=== PATIENT | female | born 1945 | race Caucasian/White ===

== ENCOUNTER 2016-06-03 19:00 | Emergency (ER) | payer MEDICARE, BC ==
[2016-06-03] MEDS ORDERED: Levalbuterol 1.25MG/0.5ML NEB INH ONE (20:36)
--- NOTE | 2016-06-03 20:36 | UC ---
FLU HPI - HPI Summary HPI Summary: 3 days of fevers at night harsh cough - History of Current Complaint Chief Complaint: UC Stated Complaint: FLU LIKE SYMPTOMS Time Seen by Provider: 06/03/16 20:10 Hx Obtained From: Patient ?: No Onset/Duration: Sudden Onset, Lasting Days - 3, Still Present Severity Currently: Moderate Severity Initially: Moderate Pain Intensity: 6 Pain Scale Used: 0-10 Numeric - 6 Associated Signs & Symptoms: Positive: Fever, Myalgia, Cough Related Hx: Smoking - Allergy/Home Medications Allergies/Adverse Reactions: Allergies Allergy/AdvReac Type Severity Reaction Status Date / Time Atorvastatin [From Lipitor] Allergy Muscle Ache Verified 06/03/16 20:04 CI Pigment Blue 63 AdvReac Mild Blisters Verified 06/03/16 20:04 [From Cymbalta] Duloxetine [From Cymbalta] AdvReac Mild Blisters Verified 06/03/16 20:04 STATINS Allergy Severe Muscle Ache Uncoded 06/03/16 20:04 Home Medications: Home Medications Aspirin [Hurt Aspirin] 2 PRN MDD unknown 06/03/16 [History] Pregabalin CAP(*) [Lyrica CAP(*)] 1 DAILY 06/03/16 [History] PMH/Surg Hx/FS Hx/Imm Hx Previously Healthy: No Endocrine History Of: Denies: Diabetes, Thyroid Disease Cardiovascular History Of: Reports: Cardiac Disorders, Hypertension, Atrial Fibrillation Denies: Pacemaker/ICD, Congestive Heart Failure Respiratory History Of: Denies: COPD, Asthma, Bronchitis GI/ History Of: Reports: Gall Bladder Disease - GALLBLADDER REMOVED 2014 Denies: Ulcer - 20 YEARS AGO, Renal Disease Psychological History Of: Reports: Anxiety, Depression - Surgical History Surgical History: Yes Surgery Procedure, Year, and Place: PARATHYROIDECTOMY; HYSTERECTOMY; LEFT ROTOR CUFF REPAIR; LOOP RECORDER PLACED,. GALL BLADDER REMOVED - Family History Known Family History: Positive: None Family History: no reported cardiovascular issues in family lineage - Social History Occupation: Retired Lives: With Family Alcohol Use: Occasionally Alcohol Amount: 2-3 GLASSES WINE/DAY Substance Use Type: None Smoking Status (MU): Smoker, Current Status Unknown Type: Cigarettes Amount Used/How Often: 1 PACK/WEEK CURRENT. HX 1 PPD X 15 YRS Length of Time of Smoking/Using Tobacco: 25 YRS Have You Smoked in the Last Year: Yes When Did the Patient Quit Smoking/Using Tobacco: 2009 Household Exposure Type: Cigarettes Cessation Counseling: Patient Advised to Stop - Immunization History Most Recent Influenza Vaccination: 2011 Most Recent Tetanus Shot: UP TO DATE Most Recent Pneumonia Vaccination: 2009 Review of Systems Constitutional: Fever, Chills, Fatigue Skin: Negative Eyes: Negative ENT: Sore Throat Respiratory: Shortness Of Breath, Cough Cardiovascular: Negative Gastrointestinal: Negative Genitourinary: Negative Motor: Negative Neurovascular: Negative Musculoskeletal: Arthralgia, Myalgia Neurological: Negative Psychological: Negative All Other Systems Reviewed And Are Negative: Yes Physical Exam Triage Information Reviewed: Yes Appearance: Well-Nourished, Ill-Appearing, Pain Distress Vital Signs: Initial Vital Signs Temp 99.4 F 06/03/16 19:56 Pulse 84 06/03/16 19:56 Resp 20 06/03/16 19:56 BP 124/79 06/03/16 19:56 Pulse Ox 98 06/03/16 19:56 Vital Signs Reviewed: Yes Eye Exam: Normal Eyes: Positive: Conjunctiva Clear ENT Exam: Normal ENT: Positive: Normal ENT inspection, Hearing grossly normal, Pharynx normal, TMs normal. Negative: Nasal congestion, Nasal drainage, Tonsillar swelling, Tonsillar exudate, Trismus, Muffled/hoarse voice Dental Exam: Normal Neck exam: Normal Neck: Positive: Supple, Nontender, No Lymphadenopathy Respiratory Exam: Other Respiratory: Positive: Chest non-tender, No accessory muscle use, Respiratory distress, Rhonchi, Wheezing Cardiovascular Exam: Normal Cardiovascular: Positive: RRR, No Murmur, Pulses Normal, Brisk Capillary Refill Abdominal Exam: Normal Abdomen Description: Positive: Nontender, No Organomegaly, Soft Bowel Sounds: Positive: Present Musculoskeletal Exam: Normal Musculoskeletal: Positive: Strength Intact, ROM Intact, No Edema Neurological Exam: Normal Neurological: Positive: Alert, Muscle Tone Normal Psychological Exam: Normal Skin Exam: Normal Diagnostics - Laboratory Diagnostic Studies Completed/Ordered: influenza A/B (-) - Radiology No standard instances Xray Interpretation: No Acute Changes Radiology Interpretation Completed By: Radiologist Re-Evaluation - Re-Evaluation First Eval Change: Worse - increase aeration but now begining with shaking chills temp up to 100.1 Flu Course/Dx - Course Course Of Treatment: transfer to [facility] ED for further evaluation - Differential Dx/Diagnosis Differential Diagnosis/HQI/PQRI: Influenza, Pneumonia, Upper Respiratory Infection Provider Diagnoses: Febrile illness - Physician Notifications Discussed Patient Care With: Dr. Harris Time Discussed With Above Provider: 21:40 Instructed by Provider To: Transfer Discharge - Discharge Plan Condition: Fair Disposition: AGAINST MEDICAL ADVICE
[2016-06-03] MEDS ORDERED: Albuterol/Ipratropium NEB.SOL* Albuterol 2.5 MG/Ipratropium 0.5 MG 3 ML INH ONE (20:43)
--- NOTE | 2016-06-03 21:04 | RAD ---
INDICATION: Cough. Fever. Congestion. COMPARISON: February 05, 2016 TECHNIQUE: PA and lateral dual-energy views were obtained. FINDINGS: Bones/Soft Tissues: There are no acute bony findings. Cardiomediastinal: The cardiomediastinal silhouette is normal. Lungs: There are no infiltrates. Pleura: There are no pleural effusions. Other: None IMPRESSION: NO ACTIVE DISEASE.
[2016-06-03] MEDS ORDERED: Azithromycin TAB* 250 MG PO ONE (21:12)
[2016-06-03 21:32] VITALS: BP 147/85
== END 2016-06-03 21:43 | disposition left against medical advice (07) ==
LOC: UCEAST 19:00
DX: R50.9 Fever, unspecified (principal); R05 Cough; Z90.49 Acquired absence of other specified parts of digestive tract; Z88.8 Allergy status to other drugs, medicaments and biological substances; F17.210 Nicotine dependence, cigarettes, uncomplicated
CPT/HCPCS: 71020; 87502; 99212; A9270-GY; G0463

== ENCOUNTER 2016-06-03 21:47 | Emergency (ER) | payer MEDICARE, BC ==
[2016-06-03 21:52] VITALS: BP 174/93
[2016-06-03] MEDS ORDERED: Ibuprofen TAB* 600 MG PO ONE (22:35)
--- NOTE | 2016-06-03 22:41 | ED ---
Dariusz Peña Adam, scribed for Francesco Germain MD on 06/03/16 at 2235 . HPI Febrile Illness - HPI Summary HPI Summary: Pt is a 70 year old female sent from urgent care with fever, cough, and congestion. At she was found to be negative for influenza A and B and her CXR was negative as well, so she was sent to the ED for further work-up. She has been having URI symptoms with a worsening cough for the past week. For the past 2 nights her temperature has been between 100 and 102 F. She currently c/o generalized myalgia, REED, and pain behind her eyes. She has taken Mucinex and ASA. She has also been on hydrocodone/Tylenol since a recent knee surgery. - History of Current Complaint Chief Complaint: EDFluSymptoms Time Seen by Provider: 06/03/16 22:25 Hx Obtained From: Patient Onset/Duration: Started Days Ago, Atraumatic, Still Present Timing: Constant, Lasting Days Initial Severity: Moderate Current Severity: Moderate Pain Intensity: 4 Pain Scale Used: 0-10 Numeric Aggravating Factors: Nothing Alleviating Factors: OTC Medicine - ASA, Mucinex Associated Signs and Symptoms: Cough, Headache, Myalgia, Other: - Congestion - Additional Pertinent History Primary Care Physician: [id number] - Allergy/Home Medications Allergies/Adverse Reactions: Allergies Allergy/AdvReac Type Severity Reaction Status Date / Time Atorvastatin [From Lipitor] Allergy Muscle Ache Verified 06/03/16 20:04 CI Pigment Blue 63 AdvReac Mild Blisters Verified 06/03/16 20:04 [From Cymbalta] Duloxetine [From Cymbalta] AdvReac Mild Blisters Verified 06/03/16 20:04 STATINS Allergy Severe Muscle Ache Uncoded 06/03/16 20:04 PMH/Surg Hx/FS Hx/Imm Hx Endocrine/Hematology History: Denies: Hx Diabetes, Hx Systemic Lupus Erythematosus, Hx Thyroid Disease Cardiovascular History: Reports: Hx Hypercholesterolemia, Hx Hypertension, Hx Valvular Heart Disease - MITRAL VALVE PROLAPSE, PULMONARY VALVE PROBLEM, Other Cardiovascular Problems/Disorders - CARDIAC ABLATION, LOOP CHIP IMPLANTED TO MONITOR HEART RATE Denies: Hx Congestive Heart Failure, Hx Pacemaker/ICD Respiratory History: Reports: Other Respiratory Problems/Disorders - CURRENT SMOKER/TOBACCO Denies: Hx Asthma, Hx Chronic Obstructive Pulmonary Disease (COPD) GI History: Reports: Hx Gall Bladder Disease - GALLBLADDER REMOVED 2014, Hx Irritable Bowel, Other GI Disorders - chronic constipation Denies: Hx Ulcer - 20 YEARS AGO History: Reports: Other Problems/Disorders - BLADDER CANCER, incontinence Denies: Hx Dialysis, Hx Renal Disease Musculoskeletal History: Reports: Hx Arthritis, Hx Back Problems, Hx Orthopedic Injury - LEft rotator cuff, Other Musculoskeletal History - LEFT ROTATOR CUFF REPAIR, RIGHT TOTAL KNEE REPLACEMENT 02/11 Denies: Hx Rheumatoid Arthritis, Hx Osteoporosis Sensory History: Reports: Hx Contacts or Glasses Denies: Hx Hearing Aid Opthamlomology History: Reports: Hx Contacts or Glasses Neurological History: Denies: Other Neuro Impairments/Disorders Psychiatric History: Reports: Hx Anxiety, Hx Depression Denies: Hx Panic Disorder - Cancer History Cancer Type, Location and Year: Bladder Cancer 1998 Hx Chemotherapy: No Hx Radiation Therapy: No Hx Palliative Cancer Treatment: No - Surgical History Surgery Procedure, Year, and Place: PARATHYROIDECTOMY; HYSTERECTOMY; LEFT ROTOR CUFF REPAIR; LOOP RECORDER PLACED,. GALL BLADDER REMOVED Hx Anesthesia Reactions: No Infectious Disease History: No Infectious Disease History: Denies: Hx Hepatitis, Hx Human Immunodeficiency Virus (HIV), Traveled Outside the [place] in Last 30 Days - Family History Known Family History: Negative: Cardiac Disease Family History: No reported cardiovascular issues in family lineage - Social History Occupation: Retired Lives: With Family - Alcohol Use: Daily Alcohol Amount: 2-3 GLASSES WINE/DAY Hx Substance Use: No Substance Use Type: Reports: None Hx Tobacco Use: Yes Type: Cigarettes Amount Used/How Often: 1 PACK/WEEK CURRENT. HX 1 PPD X 15 YRS Length of Time of Smoking/Using Tobacco: 25 YRS Have You Smoked in the Last Year: Yes Review of Systems Positive: Fever Positive: Sore Throat, Other - Congestion Positive: Myalgia All Other Systems Reviewed And Are Negative: Yes Physical Exam Triage Information Reviewed: Yes Vital Signs On Initial Exam: Initial Vitals Temp Pulse Resp BP Pulse Ox 100.6 F 101 16 174/93 96 06/03/16 21:48 06/03/16 21:48 06/03/16 21:48 06/03/16 21:48 06/03/16 21:48 Vital Signs Reviewed: Yes Appearance: Positive: Well-Appearing, No Pain Distress Skin: Positive: Warm Head/Face: Positive: Normal Head/Face Inspection Eyes: Positive: HEATHER ENT: Positive: Hearing grossly normal Neck: Positive: Supple Respiratory/Lung Sounds: Positive: Clear to Auscultation, Breath Sounds Present Cardiovascular: Positive: RRR Abdomen Description: Positive: Nontender, Soft Bowel Sounds: Positive: Present Musculoskeletal: Positive: Strength/ROM Intact Neurological: Positive: Sensory/Motor Intact, Alert, Oriented to Person Place, Time Psychiatric: Positive: Affect/Mood Appropriate Diagnostics - Vital Signs Vital Signs Temp Pulse Resp BP Pulse Ox 06/03/16 21:48 100.6 F 101 16 174/93 96 - Laboratory Result Diagrams: 06/03/16 22:50 06/03/16 22:50 Lab Statement: Any lab studies that have been ordered have been reviewed, and results considered in the medical decision making process. Course/Dx - Diagnoses Provider Diagnoses: Febrile illness Discharge - Discharge Plan Condition: Stable Disposition: HOME Patient Education Materials: Fever in Adults (ED) Referrals: Conner Belle MD [Primary Care Provider] - Additional Instructions: Follow up with Dr. Belle. The documentation as recorded by the Dariusz maldonado Adam accurately reflects the service I personally performed and the decisions made by Jessa hook David, MD.
[2016-06-03 23:02] LABS: Hematocrit 37 % (35-47); Hemoglobin 11.9 g/dl (12.0-16.0); Mean Corpuscular HGB Conc 33 g/dl (31-36); Mean Corpuscular Hemoglobin 31 pg (27-31); Mean Corpuscular Volume 94 fL (80-97); Mean Platelet Volume 9 um3 (7.4-10.4); Red Blood Count 3.88 10^6/ul (4.0-5.4); Red Cell Distribution Width 14 % (10.5-15); White Blood Count 14.2 10^3/ul (3.5-10.8)
[2016-06-03 23:17] LABS: BUN/Creatinine Ratio 15.8 (8-20); EGFR African American 135.2 (>60); EGFR Non-African American 105.2 (>60); Potassium 3.6 mmol/L (3.5-5.0)
== END 2016-06-03 23:48 | disposition home or self-care (01) ==
LOC: ED 21:47
DX: R50.9 Fever, unspecified (principal); J02.9 Acute pharyngitis, unspecified; M79.1 Myalgia; Z90.49 Acquired absence of other specified parts of digestive tract; Z88.8 Allergy status to other drugs, medicaments and biological substances; F17.210 Nicotine dependence, cigarettes, uncomplicated
CPT/HCPCS: 36415; 71020; 80048; 85025; 87502; 99212; 99282; A9270-GY; G0463

== ENCOUNTER 2018-03-25 10:40 | Observation (INO) | payer MEDICARE, BC ==
[~2018-03-25 10:40] MED LIST: Buffered Lidocaine 0.9% SYRIN* 5 ML/SYR SYRINGE INTRADERM ONE; Lactated Ringers 1000 ML Bag* 1,000 ML IV SCH
[2018-03-25] MEDS ORDERED: oxyCODONE TAB* 5 MG TAB PO ONE (12:08)
[2018-03-25] MEDS ORDERED: oxyCODONE TAB* 5 MG TAB ONE (12:14)
[2018-03-25] MEDS ORDERED: Midazolam* 1 MG/ML 2 ML VIAL (2 MG) ONE (12:40)
[2018-03-25] MEDS ORDERED: fentaNYL* 50 MCG/ML 2 ML VIAL (100 MCG VIAL) ONE (12:40)
[2018-03-25] MEDS ORDERED: Rocuronium* 10 MG/ML VIAL ONE (12:40)
[2018-03-25] MEDS ORDERED: Lidocaine 2% PF * 5 ML VIAL ONE (13:14)
[2018-03-25] MEDS ORDERED: Ondansetron INJ* 2 MG/ML VIAL ONE (13:31)
[2018-03-25] MEDS ORDERED: Metoclopramide IV* 5 MG/ML 2 ML VIAL ONE (13:31)
[2018-03-25] MEDS ORDERED: Dexamethasone IV* 4 MG/ML 1 ML (4 MG) ONE (13:31)
[2018-03-25] MEDS ORDERED: Ketorolac INJ* 30 MG/ML 1 ML VIAL ONE (13:31)
[2018-03-25] MEDS ORDERED: Naloxone* 0.4 MG/ML 1 ML VIAL IV PRN (13:49)
[2018-03-25] MEDS ORDERED: Acetaminophen TAB* 325 MG PO PRN ×2 (13:49→15:58)
[2018-03-25] MEDS ORDERED: fentaNYL* 50 MCG/ML 2 ML VIAL (100 MCG VIAL) IV PRN (13:49)
[2018-03-25] MEDS ORDERED: DiMENhydriNATE IV* 50 MG/ML VIAL IV PUSH PRN (13:49)
[2018-03-25] MEDS ORDERED: Phenylephrine INJ* 10 MG/ML 1 ML VIAL (10 MG) ONE (13:50)
[2018-03-25] MEDS ORDERED: hydrALAZINE IV* 20 MG/ML VIAL ONE (14:38)
[2018-03-25] MEDS ORDERED: Indomethacin SUPP(NF) 50 MG SUP PR ONE (15:00)
[2018-03-25] MEDS ORDERED: OXYCODONE HCL 15 MG PO PRN (15:57)
[2018-03-25] MEDS ORDERED: ALPRAZOLAM 1 MG PO PRN (15:57)
[2018-03-25] MEDS: oxyCODONE TAB* 5 MG TAB PO SCH ×2 (17:39→20:58)
[2018-03-25] MEDS ORDERED: Sertraline* 100 MG TAB PO SCH (21:00)
[2018-03-25] MEDS ORDERED: ALPRAZolam TAB* 0.5 MG PO SCH (21:00)
--- NOTE | 2018-03-25 21:03 | HP ---
CC: Dr. Santamaria* [facility] MEDICINE HISTORY AND PHYSICAL: DATE OF ADMISSION: 03/25/18 PRIMARY CARE PROVIDER: Dr. Santamaria. ATTENDING PHYSICIAN: Dr. Zana Cade* (dictation provided by Samanta Mccormack NP). CHIEF COMPLAINT: Status post ERCP. HISTORY OF PRESENT ILLNESS: Ms. Morgan is a 72-year-old female with a past medical history of hypertension, hyperlipidemia, recent upper endoscopy with findings of gastritis and astric ulcer, on omeprazole, and recent outpatient MRCP with finding of choledocholithiasis and cholecystectomy, who presents to the hospital today after an ERCP. Ms. Morgan had a cholecystectomy in 2014. She has continued to follow along with Dr. Paniagua. She had reported that she was having some heartburn- type symptoms in and around December of 2017. On 12/28/17 , she had an upper endoscopy with Dr. Paniagua which showed gastritis and gastric ulcers, for which she was started on omeprazole. The patient also had MRCP at that time which did show stones in the common bile duct. The patient was asymptomatic from these stones. Dr. Paniagua discussed the risk of leaving the stones there versus removing with ERCP and plans were made for her to proceed with ERCP today. The patient was reported to have tolerated that procedure well. She denies any acute complaint prior to her admission. PAST MEDICAL HISTORY AND PAST SURGICAL HISTORY: 1. Hypertension. 2. Hyperlipidemia. 3. Atrial fibrillation, status post ablation, not on anticoagulation. 4. Bladder cancer. 5. Cholecystectomy in 2014. 6. Right knee arthroplasty in 2016. ALLERGIES: 1. ATORVASTATIN. 2. DULOXETINE. 3. MORPHINE. FAMILY HISTORY: Reviewed and noncontributory. SOCIAL HISTORY: No report of alcohol, tobacco, or drug use. The patient lives with her , who will be the healthcare proxy. REVIEW OF SYSTEMS: A 14-point review of systems was completed with Ms. Morgan and all those mentioned above were negative. PHYSICAL EXAMINATION GENERAL: Ms. Morgan is sitting up in the bed. She is in no acute distress. VITAL SIGNS: Temperature 98.4, pulse rate 89, respiratory rate 17; O2 saturation 93% on room air; blood pressure 146/91. NEURO: She is alert. She is oriented x3. She moves all extremities equally. There is no facial asymmetry or focal weakness. Extraocular movements are intact. LUNGS: Clear to auscultation bilaterally with no accessory muscle use, and good aeration. HEART: S1, S2. No murmur, rub, or gallop and regular. ABDOMEN: Soft, nontender with bowel sounds positive x4. EXTREMITIES: No cyanosis or edema. SKIN: Intact. DIAGNOSTIC STUDIES AND LABORATORY DATA: Preoperatively, on 02/24/18, sodium 140, potassium 4.6, chloride 102, serum bicarbonate 31, BUN 16, creatinine 0.70 , glucose 87. Her AST was 14, ALT 15, alk phos 78. WBC 13.1, hemoglobin 14.6, hematocrit 44, platelet count 245. ASSESSMENT: Ms. Morgan is a 72-year-old female with a past medical history of cholecystectomy and a recent finding of common bile duct stones via MRCP outpatient with Dr. Paniagua, who presented today to the hospital for ERCP. The patient tolerated the procedure well, but needs observation in the hospital overnight for her multiple comorbidities and pain control. Her plans will be for the followin. Status post ERCP. The patient's pain is well controlled at this time. I have ordered LFTs in the a.m. We will observe closely through the night. 2. Chronic pain. Continue oxycodone. 3. Anxiety. Continue alprazolam. 4. Depression. Continue bupropion and sertraline. 5. Recent finding of gastritis. Continue omeprazole. 6. Hypertension. The patient's blood pressure is running about 110 systolically. I have losartan on hold for the a.m. until she can be reevaluated and will likely resume. 7. Disposition. Discharge to Day Surgical. 8. DVT prophylaxis with SCDs. 9. Code status is full code. TIME SPENT: Approximately 60 minutes were spent on the admission of this patient, more than half of the time was spent with the patient at the bedside reviewing the events leading up to this hospitalization, performing the physical examination, and reviewing my plan of care. SAMANTA MCCORMACK NP [id number]/DIANE #: [id number] MTDD
--- NOTE | 2018-03-26 01:48 | PRO ---
DATE: 03/25/18 REFERRING PHYSICIAN: Edilberto Flood PROCEDURE: ERCP with sphincterotomy and balloon extraction, 7 common bile duct stones, 7 to 8 mm each. INDICATION: This 72-year-old woman was found to have common bile duct stones on a MRCP of the abdomen September 2016 (ordered by Tia Mclean) that was working up abdominal pain and fluctuating low grade alk phos elevations and it was concluded that the pain likely came from a different source. Stones have been observed and documented on second MRCP Jan 2018. Given her overall good health , it was elected to remove them electively. Her GB was removed 02/27/15 with at least 3 abd US studies not showing CBD stones though the CBD was expanding over time to 13mm. A Mar [address] Pascual did see CBD stones. Her liver function tests have shown normal bili and mild ALT and alk phos fluctuations not clearly correlating with pain . Informed consent was obtained during a sequence of office appointments and a full discussion was held at least twice. ENDOSCOPIST: Dr. Paniagua MEDICATIONS: Anesthesia per Dr. Dickerson. FINDINGS: She is a slender, generally healthy-appearing older woman, in no distress. Her blood pressure was elevated initially with diastolics in the 100 to 105 range. She had taken her blood pressure medicines in the morning, but not her OxyContin. She does attend the pain clinic regularly. Dr. Dickerson evaluated her and gave some doses of pain medication. Her blood pressure came down and the procedure took place. She was positioned in the usual tilted left side down orientation, padded extensively. ERCP: Larynx - small configuration and advancement of the mandible was helpful in getting into the esophagus. Esophagus - 20% views were normal. Stomach - 40% views were normal. Duodenum - normal contours and mucosa. The minor papilla was fairly prominent and was easily seen going by. Major papilla - of generous size with a small amount of bile draining spontaneously during initial views. The scope was positioned directly opposite the papilla. A sphincterotome slightly bent was then used to approach the papilla. A cannulating wire was brought right down to the end. The sphincterotome was inserted for about 2 or 3 mm, then seemed to glide in a favorable orientation. At that point, the cannulating wire went up directly into the liver readily. It did not appear to enter a cystic duct. The wire was brought down and locked and then injection did show some filling defects in the common duct. They were not particularly distinctly shown, but seemed evident. They were mostly distally. Sphincterotomy was done in a 12 o'clock orientation, estimated 12 to 13 mm. Bile was spilling generously. A large 12 to 15 mm balloon was inserted and 7 stones were brought through with the balloon mostly at a 12, sometimes 13.5 inflation dimension. They came through with twisting manipulation of the balloon catheter. They came through one by one. There was no bleeding. There was no purulence seen. A final balloon occlusion cholangiogram was done extracting the duct in a straightened orientation. Views appeared precise and no stones were seen. The catheter was removed. Dye drained readily within a minute. Procedure was terminated. IMPRESSION: 1. Status post endoscopic sphincterotomy - with extensive manipulation required. Indocin suppository was given post procedure. 2. Removal of common bile duct stones - total of 7 with a little bit of grit. The duct appears drained. Followup of any distress with LFT correlation will direct choices - possible Ursodiol . [id number]/[facility] #: [id number] [facility] CENTERCharlie
[2018-03-26 06:11] LABS: Albumin 3.9 g/dL (3.2-5.2); Albumin/Globulin Ratio 1.8 (1-3); Globulin 2.2 g/dL (2-4); Indirect Bilirubin 0.4 mg/dL (0.3-1.0); Total Bilirubin 0.5 mg/dL (0.2-1.0); Total Protein 6.1 g/dL (6.4-8.9)
[2018-03-26 07:28] VITALS: BP 133/87
[2018-03-26] MEDS ORDERED: Omeprazole CAP* 20 MG PO SCH (07:30)
[2018-03-26] MEDS: oxyCODONE TAB* 5 MG TAB PO SCH (07:49)
[2018-03-26] MEDS ORDERED: BuPROPion XL* 300 MG TAB.XL PO SCH (09:00)
[2018-03-26] MEDS ORDERED: amLODIPine TAB* 5 MG PO SCH (09:00)
--- NOTE | 2018-03-27 06:01 | DS ---
Amended report to enter cosigning physician. CC: Dr. Santamaria; Dr. Paniagua* DISCHARGE SUMMARY: DATE OF ADMISSION: 03/25/18 DATE OF DISCHARGE: 03/26/18 PRIMARY CARE PROVIDER: Dr. Santamaria. ATTENDING PHYSICIAN: Dr. Mcmanus* (dictated by Zenon Denise NP). PRIMARY DIAGNOSIS: Status post ERCP. SECONDARY DIAGNOSES: 1. Hypertension. 2. Hyperlipidemia. 3. Atrial fibrillation, status post ablation, not on anticoagulation. 4. Bladder cancer. 5. Cholecystectomy in 2014. 6. Right knee arthroplasty in 2016. CONSULTATIONS WHILE IN THE HOSPITAL: Dr. Paniagua. PROCEDURES WHILE IN THE HOSPITAL: Status post endoscopic sphincterotomy. DISCHARGE HOME MEDICATIONS: [place] Medications: No new home medications Continued Home Medications: 1. Oxycodone 15 mg p.o. 4 times a day p.r.n. 2. Alprazolam 1 tab p.o. at bedtime p.r.n. 3. Zoloft 100 mg p.o. at bedtime. 4. Losartan 50 mg p.o. at bedtime. 5. Omeprazole 20 mg p.o. q.a.m. 6. Bupropion 1 tab p.o. q.a.m. 7. Norvasc 5 mg p.o. q.a.m. Changed or Discontinued Home Medications: None. HISTORY OF PRESENT ILLNESS/HOSPITAL COURSE: Ms. Morgan is a 72-year-old female with a past medical history of hypertension, hyperlipidemia, recent upper endoscopy with findings of gastritis and gastric ulcer, on omeprazole, and recent outpatient MRCP with findings of choledocholithiasis and cholecystectomy , who presented to the hospital after ERCP. Please see history and physical dictated by Samanta Mccormack for complete summary of events leading up to this hospitalization, but in short, the patient was admitted for ERCP, which the patient tolerated well. She was kept overnight on Short Stay Surgical for observation due to her multiple comorbidities and to control her pain. While on Short Stay, vital signs remained stable. The patient's pain was controlled with her normal home regimen of oxycodone 15 mg. In addition, labs this morning were stable. She was also evaluated by Dr. Paniagua who approved discharge. Ms. Morgan is stable for discharge to home. VITAL SIGNS: As follows: Temp 98.4, pulse 89, respiratory rate is 17, O2 sat 95%, BP 146/91. LABS: Obtained on 03/26/18, total bilirubin 0.50, direct bilirubin 0.10, indirect bilirubin 0.4, AST 44, ALT 54, alk phos 110, total protein 6.1 albumin 3.9, globulin 2.2, albumin/globulin ratio 1.8. REVIEW OF SYSTEMS: A 14-point review of system was completed and all were negative PHYSICAL EXAMINATION: General: Ms. Morgan is a 72-year-old female, who is sitting in bed. She is no acute distress. She appears stated age. Her is at bedside. HEENT: EOMs are intact. PERRLA. Oral mucosa membranes moist, without lesions. Tonsils are without erythema or exudate. Pharynx is clear. Neck: Full range of motion. Supple. No lymphadenopathy. Respiratory: Symmetrical chest expansion. No accessory muscle use. Lungs clear to auscultation. No rhonchi, wheezes or rubs. Cardiovascular: Regular rate and rhythm. S1/S2 present. No murmurs, rubs or gallops. Extremities: Skin is warm and smooth bilaterally. No edema. Musculoskeletal: Full range of motion. No pain. Abdomen: Soft, nontender to palpation. Bowel sounds are normoactive throughout. Neuro: Awake, alert, and oriented x4. Steady gait with no impairment. Skin: Grossly intact without lesions. FOLLOWUP/DISCHARGE PLAN: 1. Status post ERCP: Patient is to follow up with Dr. Paniagua in early April. The patient is to have repeat CBC and liver function tests 3 to 4 days prior to her appointment with Dr. Paniagua in early April. I have ordered these labs for patient and instructed patient to have them obtained prior to appointment. 2. Diet: The patient encouraged to maintain a low-fat diet as instructed by Dr. Paniagua. 3. Chronic pain: Continue oxycodone. 4. Anxiety: Continue alprazolam, sertraline, and bupropion. 5. Recent findings of gastritis: Continue omeprazole. 6. Hypertension: Continue home medications as same. 7. Education: We discussed signs and symptoms of new/worsening condition. We have discussed when to return to the emergency department and/or call primary care physician. The patient stated understanding. This is a summarized report of a complex medical stay. Please see complete medical record for further information. This plan was also discussed with my attending, Dr. Mcmanus, who agrees with my plan. TIME SPENT: Approximately 30 minutes were spent on this discharge, greater than half of that spent [id number] with the patient and caregiver, discussing the plan. ZENON DENISE, DIANNA [id number]/[facility] #: [id number] GERALDO
== END 2018-03-26 12:00 | disposition home or self-care (01) ==
LOC: OR 10:40 → SSU 15:57
PROVIDERS: ADMIT Internal Medicine; ATTEND Student in an Organized Health Care Education/Training Program
DX: K80.80 Other cholelithiasis without obstruction (principal); I10 Essential (primary) hypertension; E78.5 Hyperlipidemia, unspecified; I48.91 Unspecified atrial fibrillation; Z85.51 Personal history of malignant neoplasm of bladder; Z90.49 Acquired absence of other specified parts of digestive tract; Z96.651 Presence of right artificial knee joint; Z88.6 Allergy status to analgesic agent; G89.29 Other chronic pain; R94.5 Abnormal results of liver function studies
CPT/HCPCS: 36415; 74328; 80076; 96374; 96375; A9270-GY; C1769; G0378; J0360; J1100; J1885; J2250; J2405; J2765; J3010

== ENCOUNTER 2018-06-05 14:29 | Emergency (ER) | payer MEDICARE, BC ==
--- OUTSIDE RECORDS SUMMARY | 2018-06-05 14:36 | XMS REPORT | Continuity of Care Document ---
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 Active Onset: 09/01/2014 Conjunctival hemorrhage Eliezer Tijerina O.D. Active Onset: 05/03/2014 Tear film insufficiency Eliezer Tijerina O.D. Active Onset: 10/05/2013 Acquired stenosis of nasolacrimal duct Julio Liang M.D. Active Onset: 08/31/2013 Presbyopia Eliezer Tijerina O.D. Active Onset: 08/31/2013 Regular astigmatism Eliezer Tijerina O.D. Active Onset: 08/31/2013 Disorder of eyelid Eliezer Tijerina O.D. Active Onset: 08/31/2013 Incipient senile cataract Eliezer Tijerina O.D. Active Onset: 08/31/2013 Borderline glaucoma Eliezer Tijerina O.D. Active Family History Date Family Member(s) Observation Comments General Glaucoma brother Father Glaucoma Father due to Heart Disease () Father Blindness due to stroke Father Heart Disease Father High BP Mother Glaucoma Mother due to Lung Cancer () Mother Age-Related Macular Degeneration Mother Blindness due to glaucoma os Mother Cataract Mother Glasses Mother Cancer Social History Type Date Description Comments Sex Unknown ETOH Use Occasionally consumes alcohol Tobacco Use Start: Unknown End: Unknown Patient is a former smoker Smoking Status Reviewed: 05/26/18 Patient is a former smoker Allergies, Adverse Reactions, Alerts Date Description Reaction Status Severity Comments 08/31/2013 NKDA Active 08/31/2013 Seasonal Active Medications Medication Date Status Form Strength Qnty SIG Indications Ordering Provider Restasis 06/02/ Active Emulsion 0.05% 60uni one drop Eliezer 2017 ts twice per , day both OD eyes Esterified / Active Tablets 1.25-2.5m Yoshi, Estrogens/Methylt 0000 g Conner RENEE estosterone Alprazolam / Active Tablets 0.5mg Yoshi 0000 Conner RENEE Fluoxetine HCL / Active Capsules 40mg Unknown 0000 Amlodipine / Active Tablets 5mg Yoshi, Besylate 0000 Conner RENEE Omeprazole / Active Capsules DR 20mg Yoshi, 0000 Conner RENEE Klor-Con M20 / Active Tablets ER 20Meq Unknown 0000 Atenolol-Chlortha / Active Tablets 50-25mg [place] lidone 0000 Sinan RENEE Peg / Active Solution 240gm Yoshi, 3350/Electrolytes 0000 Rec Conner RENEE Hydrocodone / Active Tablets 10-300mg Unknown Bitartrate/Acetam 0000 inophen Methylphenidate / Active Tablets 10mg Unknown HCL 0000 Nystatin / Active Suspension 152567Lop Unknown 0000 t/ML Hydrocodone-Aceta / Active Tablets 5-325mg Unknown minophen 0000 Meloxicam / Active Tablets 7.5mg take 1 Unknown 0000 tablet by mouth twice a day Lisinopril / Active Tablets Unknown 0000 Losartan / Active Tablets 50mg Unknown Potassium 0000 Fluorometholone 12/15/ Hx Suspension 0.1% 10ml 1gtt qid Eliezer 2017 - OU x 1 Patel, 05/16/ week, OD 2019 then taper as directed Pazeo 02/16/ Hx Solution 0.7% 2.500 one drop Eliezer 2016 - ml every Patel, 12/22/ morning OD 2018 both eyes Patanol 08/27/ Hx Solution 0.1% 5ml 1 drop H10.45 Julio 2015 - both eyes Liang, 02/16/ twice a M.D. 2016 day Restasis 05/17/ Hx Emulsion 0.05% 180vi 1 drops H04.123 Julio 2014 - als both eyes Liang, 06/02/ twice a M.D. 2017 day Tobramycin-Dexame 05/03/ Hx Suspension 0.3-0.1% 5ml 1 drop 375.15 Eliezer black 2014 - four Breezy, 05/17/ times a O.D. 2014 day both eyes for two weeks Fluoxetine HCL / Hx Tablets 20mg Unknown 0000 - 2017 Immunizations Description No Information Available Vital Signs Date Vital Result Comment 05/26/2018 2:12pm Intraocular Pressure Right Eye 21 mmHg Intraocular Pressure Left Eye 19 mmHg 05/16/2018 10:00am Intraocular Pressure Right Eye 23 mmHg Intraocular Pressure Left Eye 22 mmHg 12/22/2017 3:45pm Intraocular Pressure Right Eye 18 mmHg Intraocular Pressure Left Eye 18 mmHg 12/15/2017 1:55pm Intraocular Pressure Right Eye 16 mmHg Intraocular Pressure Left Eye 16 mmHg 02/16/2017 11:50am Intraocular Pressure Right Eye 17 mmHg Intraocular Pressure Left Eye 17 mmHg 08/28/2015 3:36pm Intraocular Pressure Right Eye 20 mmHg Intraocular Pressure Left Eye 20 mmHg Cornea Thickness Left Eye 563 m Cornea Thickness Right Eye 568 m Pachymetry adjusted IOP Right Eye -1 Pachymetry adjusted IOP Left Eye -1 09/01/2014 11:24am Intraocular Pressure Right Eye 23 mmHg Intraocular Pressure Left Eye 24 mmHg 05/03/2014 2:09pm Intraocular Pressure Right Eye 1516 mmHg Intraocular Pressure Left Eye 1516 mmHg 08/31/2013 8:56am Intraocular Pressure Right Eye 26 mmHg Intraocular Pressure Left Eye 25 mmHg Cornea Thickness Left Eye 880095 m Cornea Thickness Right Eye 988278 m Pachymetry adjusted IOP Right Eye -2 Pachymetry adjusted IOP Left Eye -1 Results Description No Information Available Procedures Date Code Description Status 05/16/2018 48573 Fundus Photography W/Interpretation & Report Completed 05/16/2018 06265 Eye Exam Est Intermediate Completed 02/16/2017 02573 Fundus Photography W/Interpretation & Report Completed 02/16/2017 58254 Refraction Completed 02/16/2017 44285 Eye Exam Est Comprehensive Completed 08/28/2015 13122 Eye Exam Est Intermediate Completed 08/28/2015 09522 Corneal Pachymetry, Unilateral/Bilateral Completed 09/01/2014 39750 Fundus Photography W/Interpretation & Report Completed 09/01/2014 16323 Refraction Completed 09/01/2014 54663 Eye Exam Est Comprehensive Completed 05/03/2014 73178 Eye Exam Est Intermediate Completed 10/05/2013 73727 Probe Nasolacrimal Duct Completed 08/31/2013 98776 Fundus Photography W/Interpretation & Report Completed 08/31/2013 20229 Refraction Completed 08/31/2013 32246 Eye Exam New Comprehensive Completed 08/31/2013 64560 Corneal Pachymetry, Unilateral/Bilateral Completed Encounters Type Date Location Provider Dx Diagnosis Office Visit 12/22/2017 Main Office Eliezer Patel, OD H10.45 Other chronic allergic 3:15p conjunctivitis H04.123 Dry eye syndrome of bilateral lacrimal glands Office Visit 12/15/2017 12:45p Main Office Eliezer Patel, H10.45 Other chronic OD allergic conjunctivitis Office Visit 06/26/2014 1:30p Main Office Eliezer 375.15 Dry Eye Syndrome Tear Perla Tijerina Film Insufficiency Unspec Office Visit 05/17/2014 2:15p Main Office Eliezer [place].15 Dry Eye Syndrome Tear Perla Tijerina Film Insufficiency Unspec Plan of Treatment 05/26/2018 - Eliezer Patel, ODH25.13 Age-related nuclear cataract, [id number] Primary open-angle glaucoma, bilateral, mild stageFollow up:A- scans Ou with dr liang
--- OUTSIDE RECORDS SUMMARY | 2018-06-05 14:36 | XMS REPORT | Continuity of Care Document ---
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 Edilberto Flood MD Primary Care Physician Unavailable Payers Date Identification Numbers Payment Provider Subscriber Policy Number: [id number] [place] PayID: [id number] [address] [place] [address] Effective: 2013 Policy Number: [id number] [place] [employer] [place] Al[place] PayID: [id number] [address] [place] [address] Advance Directives Description No Information Available Problems [...] is a former smoker Smoking Status Reviewed: 05/16/18 Patient is a former smoker Allergies, Adverse Reactions, Alerts Date Description Reaction Status Severity Comments 08/31/2013 NKDA Active 08/31/2013 Seasonal Active Medications Medication Date Status Form Strength Qnty SIG Indications Ordering Provider Restasis 06/02/ Active Emulsion 0.05% 60uni one drop 2017 ts twice per , both OD eyes Esterified / Active Tablets 1.25-2.5m Yoshi, Estrogens/Methylt 0000 g Conner RENEE estosterone Alprazolam / Active Tablets 0.5mg Yoshi, 0000 Conner RENEE Fluoxetine HCL / Active Capsules 40mg Unknown 0000 Amlodipine / Active Tablets 5mg Yoshi, Besylate 0000 Conner RENEE Omeprazole / Active Capsules DR 20mg Yoshi, 0000 Conner RENEE Klor-Con M20 / Active Tablets ER 20Meq Unknown 0000 Atenolol-Chlortha / Active Tablets 50-25mg [place] lidone 0000 Sinan RENEE Peg / Active Solution 240gm Yoshi, 3350/Electrolytes 0000 Rec Conner RENEE Hydrocodone / Active Tablets 10-300mg Unknown Bitartrate/Acetam 0000 inophen Methylphenidate / Active Tablets 10mg Unknown HCL 0000 Nystatin / Active Suspension [id number] Unknown 0000 t/ML Hydrocodone-Aceta / Active Tablets [...] drop H10.45 Julio 2015 - both eyes Garth, 02/16/ twice a M.D. 2016 day Restasis 05/17/ Hx Emulsion 0.05% 180vi 1 drops H04.123 Julio 2014 - als both eyes Garth, 06/02/ twice a M.D. 2017 day Tobramycin-Dexame 05/03/ Hx Suspension 0.3-0.1% 5ml 1 drop 375.15 Eliezer black 2014 - four Breezy, 05/17/ times a O.D. 2014 day both eyes for two weeks Fluoxetine HCL / Hx Tablets 20mg Unknown 0000 - 2017 Immunizations Description No Information Available Vital Signs Date Vital Result Comment 12/22/2017 3:45pm Intraocular Pressure Right Eye 18 [...] Eye 25 mmHg Cornea Thickness Left Eye 963291 m Cornea Thickness Right Eye 201978 m Pachymetry adjusted IOP Right Eye -2 Pachymetry adjusted IOP Left Eye -1 Results Description No Information Available Procedures Date Code Description Status 02/16/2017 47910 Fundus Photography W/Interpretation & Report Completed 02/16/2017 84820 Refraction Completed 02/16/2017 91930 Eye Exam Est Comprehensive Completed 08/28/2015 22988 Eye Exam Est Intermediate Completed 08/28/2015 52113 Corneal Pachymetry, Unilateral/Bilateral Completed 09/01/2014 87600 Fundus Photography W/Interpretation & Report Completed 09/01/2014 76644 Refraction Completed 09/01/2014 92735 Eye Exam Est Comprehensive Completed 05/03/2014 49120 Eye Exam Est Intermediate Completed 10/05/2013 17190 Probe Nasolacrimal Duct Completed 08/31/2013 48996 Fundus Photography W/Interpretation & Report Completed 08/31/2013 19147 Refraction Completed 08/31/2013 17607 Eye Exam New Comprehensive Completed 08/31/2013 20068 Corneal Pachymetry, Unilateral/Bilateral Completed Encounters Type Date Location Provider Dx Diagnosis Office Visit 12/22/2017 Main Office Eliezer Patel, OD H10.45 Other chronic allergic 3:15p conjunctivitis H04.123 Dry eye syndrome of bilateral lacrimal glands Office Visit 12/15/2017 12:45p Main Office Eliezer Patel, H10.45 Other chronic OD allergic conjunctivitis Office Visit 06/26/2014 1:30p Main Office Eliezer [place].15 Dry Eye Syndrome Tear Perla Tijerina Film Insufficiency Unspec Office Visit 05/17/2014 2:15p Main Office Eliezer [place].15 Dry Eye Syndrome Tear Perla Tijerina Film Insufficiency Unspec Plan of Treatment No Information Available
--- OUTSIDE RECORDS SUMMARY | 2018-06-05 14:36 | XMS REPORT | Continuity of Care Document ---
:1945 External Reference #:[id number] Author Name Pillo Reinoso M.D. Address [address] [place] [address] Care Team Providers Name Role Phone Leela Santamaria MD Primary Care Physician Unavailable Payers Date Identification Numbers Payment Provider Subscriber Policy Number: [id number] [place]VS Azar Morgan PayID: [id number] 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 Active Onset: 12/23/2010 Contact dermatitis due to Pillo Reinoso M.D. Active non-medicinal chemical Onset: 12/23/2010 Disorder of parathyroid gland Pillo Reinoso M.D. Active Onset: 12/23/2010 Difficulty speaking Pillo Reinoso M.D. 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 Tobacco Use Start: Unknown End: Former Cigarette Smoker Packs for 45 years Unknown Daily 1 Tobacco Use Start: Unknown quit at age 62 Tobacco Use Start: Unknown Never Smoked Cigars Tobacco Use Start: Unknown Never Smoked A Pipe Smoking Status Reviewed: 05/18/18 Never Smoked A Pipe Smokeless Tobacco Never Used Smokeless Tobacco ETOH Use Currently rarely consumes alcohol Tobacco Use Start: Unknown End: Patient is a former smoker Unknown Allergies, Adverse Reactions, Alerts Description No Known Drug Allergies Medications Medication Date Status Form Strength Qnty SIG Indications Ordering Provider Fluticasone 05/18/ Active Suspension 50mcg/Act 48gm 2 sprays R09.81 Pillo Harrington Propionate 2019 in each [facility] nostrgreg reynolds M.D. everyday Multi-Vitamin / Active Tablets as Self 0000 directed Lisinopril / Active 50mg 1 po qd [place],St 0000 even AMarisela RENEE Amlodipine / Active Tablets 5mg po qd Belle,St Besylate 0000 even AMarisela RENEE Alprazolam / Active Tablets 0.5mg Belle,St 0000 even AMarisela RENEE Bupropion HCL / Active Tablets ER 300mg Take One Unknown ER (XL) 0000 24HR Tablet By Mouth Every Morning Oxycodone HCL / Active Tablets 15mg Richardson 0000 Marta PORTABLE SAWMILL OPERATOR Losartan / Active Tablets 50mg Unknown Potassium 0000 Ciprofloxacin 12/17/ Hx Solution 0.3% 1unit instill 2 375.56 Pillo Harrington HCL 2010 - s drops in [facility] 02/03/ right eye Rian reynolds 2010 q4 hours [place] 12/02/ Hx Tablets 5-325mg 30tab 1-2 po Pillo Harrington 2010 - s q4h prn Strominge 07/12/ pain Rian reynolds 2011 Hydrocodone 09/22/ Hx Pillo Harrington 2010 - Strominge 09/22/ Rian reynolds 2010 [place] 09/22/ Hx Tablets 5-325mg 30tab 1-2 po Pillo Harrington 2010 - s q4h prn Strominge 12/02/ pain r, M.D. 2010 Lortab 5 03/05/ Hx Tablets 45tab 1-2 375.56 Pillo Harrington 2008 - s tablet Strominge 04/02/ every 4-6 r, M.D. 2009 hours for pain Lortab 5 11/26/ Hx Tablets 30tab 1-2 375.56 Pillo Harrington 2008 - s tablet Strominge 01/28/ every 4-6 r, M.D. 2008 hours for pain Vitamin D 00/00/ Hx Tablets Unknown - 2010 Estratest 00/00/ Hx Unknown 2014 Adderall 00/00/ Hx Unknown 2010 Fish Oil /00/ Hx Unknown 2014 Fosamax /00/ Hx Unknown 2014 Ritalin 00/00/ Hx Unknown 2014 Norvasc 00/00/ Hx 5mg as [facility] Yoshi 0000 - directed nemo A. 2016 Nystatin 00/00/ Hx Unknown 2014 Erythromycin 00/00/ Hx Ointment 5mg/GM Dago 0000 - Pillo 07/03/ Rian Vallejo 2014 Refresh Tears /00/ Hx Solution 0.5% Unknown 2016 Magnesium 00/00/ Hx Tablets 500mg as Self 0000 - directed 2015 Potassium 00/00/ Hx Tablets 99mg [facility] Yoshi 0000 - even A. 2015 Metoprolol 00/00/ Hx Tablets ER 25mg As [facility] Yoshi Succinate ER 0000 - 24HR directed nemo A. 2015 Oxycodone-Aceta 00/00/ Hx Tablets 10-325mg Take One Unknown minophen 0000 - Tablet By Mouth 2018 Every 4 Hours as Needed For Pain Maximum Herbert Bupropion HCL 00/00/ Hx Tablets ER 100mg Take One Unknown ER (SR) 0000 - 12HR Tablet By Mouth 2018 Every Day Escitalopram 00/00/ Hx Tablets 20mg Pachikara Oxalate 0000 - Edilberto 05/18/ 2018 Immunizations CPT Code Status Date Vaccine Lot # [id number] Given 02/07/2014 Influenza Virus Vaccine, 3 Years Of Age And Above, Intramuscular 37499 Given 01/08/2010 Prevnar 13 For Intramuscular Use Vital Signs Date Vital Result Comment 05/18/2018 10:33am Weight 128.00 lb Weight 58.061 kg Height 64 inches 5'4" Height in cm's 162.6 cm BMI (Body Mass Index) 22.0 kg/m2 09/13/2017 11:27am Weight 125.00 lb Weight 56.700 kg Height 64 inches 5'4" Height in cm's 162.6 cm BMI (Body Mass Index) 21.5 kg/m2 07/28/2016 10:06am BP Systolic 146 mmHg BP Diastolic 89 mmHg Heart Rate 71 /min Respiratory Rate 17 /min Weight 125.00 lb Weight 56.700 kg Height 64 inches 5'4" Height in cm's 162.6 cm BMI (Body Mass Index) 21.5 kg/m2 06/25/2015 9:38am BP Systolic 131 mmHg BP Diastolic 81 mmHg Heart Rate 88 /min Respiratory Rate 17 /min Weight 130.00 lb Weight 58.968 kg Height 64 inches 5'4" Height in cm's 162.6 cm BMI (Body Mass Index) 22.3 kg/m2 07/03/2014 2:37pm BP Systolic 122 mmHg BP Diastolic 89 mmHg Heart Rate 85 /min Respiratory Rate 17 /min Weight 138.00 lb Weight 62.597 kg Height 64 inches 5'4" Height in cm's 162.6 cm BMI (Body Mass Index) 23.7 kg/m2 07/13/2011 11:32am BP Systolic 154 mmHg BP Diastolic 103 mmHg Heart Rate 81 /min Respiratory Rate 16 /min Weight 127.00 lb Weight 57.607 kg Height 63 inches 5'3" Height in cm's 160.0 cm BMI (Body Mass Index) 22.5 kg/m2 02/03/2011 8:53am BP Systolic 173 mmHg BP Diastolic 129 mmHg Heart Rate 86 /min Respiratory Rate 16 /min Weight 118.00 lb Weight 53.525 kg Height 63.50 inches 5'3.50" Height in cm's 161.3 cm BMI (Body Mass Index) 20.6 kg/m2 02/03/2011 8:53am BP Systolic 181 mmHg BP Diastolic 114 mmHg Heart Rate 88 /min Respiratory Rate 16 /min 11/26/2008 10:57am BP Systolic 163 mmHg BP Diastolic 107 mmHg Heart Rate 169 /min Respiratory Rate 16 /min 01/31/2008 8:40am BP Systolic 164 mmHg BP Diastolic 102 mmHg Heart Rate 77 /min Respiratory Rate 16 /min 10/10/2007 11:37am BP Systolic 168 mmHg BP Diastolic 108 mmHg Heart Rate 86 /min Respiratory Rate 18 /min 10/03/2007 10:54am BP Systolic 136 mmHg BP Diastolic 91 mmHg Heart Rate 85 /min Respiratory Rate 16 /min Results Test Date Facility Test Result H/L Range Note Laboratory test [facility] Surgical -------- --- 1 finding 2 c/o Department of Laboratories Pathology ----- <[place] [address] NOTE> [phone] Laboratory test [facility] Calcium 9.0 mg/ dL 8.1-9.9 finding 1 c/o Department [place] [address] [phone] Laboratory test [facility] Calcium 9.0 mg/ dL 8.1-9.9 2 finding 1 c/o Department [place] [address] [phone] Surgical [facility] Surgical 3 Pathology 1 c/o Department of Laboratories Pathology ----- <[place] [address] NOTE> [phone] Laboratory test [facility] Rapid Intact 4.5 PMOL/L 1.3-9.3 4 finding 1 c/o Department [place] [address] [phone] Laboratory test [facility] Rapid Intact 11.1 PMOL/L High 1.3-9.3 5 finding 1 c/o Department [place] [address] [phone] PTH Intact, Inc [facility] PTH Intact 6.9 PMOL/L 1.3-9.3 Total Calcium 1 [place] [address] [phone] Calcium For Pthi 10.3 mg/dL High 8.1-9.9 6 Surgical 12/07/2008 [facility] Surgical -- <SEE 7 Pathology c/o Department of Laboratories Pathology NOTE> [place] [address] [phone] Surgical 10/14/2007 [facility] Surgical -- <SEE 8 Pathology c/o Department of Laboratories Pathology NOTE> [place] [address] [phone] 1 --- RUN DATE: 07/15/11 [facility] NMI LIVE PAGE 1 RUN TIME: 1333 Specimen Inquiry RUN USER: INTERFACE -- Name: AZAR MORGAN Status: REG REF Re07/13/11 Age/Sex: 65/F Unit#: [id number] Location: [facility] : 46 -- Specimen: [id number] CARMEN Spec Date:07/13/11 [facility] Dr: Pillo colon MD Spec Type: SURGICAL P Received:07/14/11 Copies to: SPECIMEN PIGMENTED LESION POSTERIOR PALATE HISTORY PRE-OP DIAGNOSIS: Pigmented lesion posterior palate GROSS DESCRIPTION The specimen is received in formalin labelled Azar Morgan and consists of one fragment of josue tissue measuring 0.6 x 0.4 x 0.2 cm. The specimen is bisected and submitted entirely in one cassette. DIAGNOSIS Mucosa, posterior palate, biopsy: A. Epidermis with parakeratosis and focal hyperpigmentation of the basal layer with underlying pigment incontinence. B. No evidence of melanocytic proliferation. Signed Electronically by: JESSICA SHAH 07/15/11 1333 -- -- DEPARTMENT OF PATHOLOGY, [address] [place] [address] [facility] Permit #[id number] Jerald Colon M.D. Director Jessica Shah M.D. Cosmetology Teacher maría -- 2 CALL FLOOR WITH RESULTS [phone] --- RUN DATE: 09/18/10 [facility] NMI LIVE PAGE 1 RUN TIME: 1416 Specimen Inquiry RUN USER: INTERFACE -- Name: AZAR MORGAN Status: [facility] Re09/17/10 Age/Sex: 65/F Unit#: [id number] Location: [facility] : 46 -- Specimen: [id number] SOUT Spec Date: 09/17/[address]: Pillo gray MD Spec Type: SURGICAL P Received: 09/17/10-1031 Copies to: SPECIMEN 1) PORTION OF RIGHT INFERIOR PARATHYROID 2) RIGHT INFERIOR PARATHYROID HISTORY PRE-OP DIAGNOSIS: Nodule right parathyroid; rule out parathyroid adenoma GROSS DESCRIPTION 1) The specimen is received fresh labelled Azar Morgan, Portion of Right Parathyroid, and consists of a slater-pink, soft tissue fragment measuring 0.5 x 0.3 x 0.3 cm. Submitted entirely, one cassette after frozen section. 2) The specimen is received in formalin labelled Azar Morgan, Right Inferior Parathyroid, and consists of an encapsulated slater-pink mass with attached adipose tissue measuring 1.7 x 0.6 x 0.3 cm. Submitted entirely, one cassette. PATH CONSULT DURING SURGERY Frozen section (FS)/Touch Prep (TP)/Gross Consult (GC) FS1) Right inferior parathyroid: Hypercellular parathyroid. (LM) DIAGNOSIS 1) Right inferior parathyroid tissue, biopsy: A. Hypercellular parathyroid tissue. B. Portion of compressed normal parathyroid tissue noted. 2) Right inferior parathyroid, excision: A. Hypercellular parathyroid tissue. B. Portion of compressed normal parathyroid tissue noted. Signed Electronically by: JERALD COLON MD 09/18/10 1415 -- -- DEPARTMENT OF PATHOLOGY, [address] [place] [address] [facility] Permit #[id number] Jerald Colon M.D. Director Jessica Shah M.D. Cosmetology Teacher Dir maría -- 4 VERBAL TO [place] BY ANA at 0935 on 09/17/10. Results read back accurately. 5 VERBAL TO [place] BY ANA at 0805 on 09/17/10. Results read back accurately. 6 Please note change in reference range effective 08 . 7 --- RUN DATE: 12/20/08 [facility] NMI LIVE PAGE 1 RUN TIME: 1601 Specimen Inquiry RUN USER: INTERFACE -- Name: AZAR MORGAN Status: [facility] Re12/07/08 Age/Sex: 63/F Unit#: [id number] Location: 2S : 46 -- Specimen: [id number] SOUT Spec Date: 12/07/[address]: Pillo gray MD Spec Type: SURGICAL P Received: 09/14/09-1428 Copies to: SPECIMEN RIGHT UNCINATE PROCESS HISTORY PRE-OP DIAGNOSIS: Nasolacrimal duct stenosis. GROSS DESCRIPTION Specimen received in formalin labelled Azar Morgan, Uncinate Process and consists of multiple bone and cartilage fragments measuring 1.9 x 1.1 x 0.4 cm. in aggregate. Submitted entirely, one cassette. DIAGNOSIS Uncinate process, excision: A) Respiratory type mucosa with focal interstitial chronic inflammatory infiltrate. B) Bone and cartilage with degenerative changes. Signed Electronically by: JESSICA SHAH 12/20/08 1601 -- -- DEPARTMENT OF PATHOLOGY, [address] [place] [address] [facility] Permit #[id number] Jerald Colon M.D. Director Jessica Shah M.D. Cosmetology Teacher Dir maría -- 8 --- RUN DATE: 10/18/07 [facility] NMI LIVE PAGE 1 RUN TIME: 1504 Specimen Inquiry RUN USER: INTERFACE -- [id number] Status: [facility] Re10/14/07 Age/Sex: 62/F Unit#: [id number] Location: [address] [place] [address].B. : 47 -- Specimen: [id number] [facility] Spec Date: 10/14/07 [facility] Dr: Pillo gray MD Spec Type: SURGICAL P Received: 10/17/07 Copies to: SPECIMEN LEFT TRUE VOCAL CORD MASS HISTORY PRE-OP DIAGNOSIS: Neoplasm uncertain, larynx/left true vocal cord mass GROSS DESCRIPTION The specimen is received in formalin labelled Azar Morgan, True Vocal Cord Mass, and consists of two, slater-josue, irregular, soft tissue fragments measuring 0.3 x 0.2 x 0.1 cm. in aggregate. Submitted entirely, one cassette. DIAGNOSIS Left true vocal cord, biopsy: A) Superficial, hyperparakeratotic and hypergranular verrucoid squamous fragment (see comment). 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 COMMENT The specimen consists of two rather small and superficial fragments. The larger of the two fragments demonstrates marked hyperparakeratosis and hypergranulosis with atypia. The other fragment demonstrates normal thickness squamous epithelium with definitive moderate dysplasia. 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 Correlation with microscopic findings as well as additional studies are suggested. Signed Electronically by: JERALD COLON MD 10/18/07 1504 -- -- DEPARTMENT OF PATHOLOGY, [address] [place] [address] [facility] Permit #[id number] Jerald Colon M.D. Director of Laboratories -- Procedures Date Code Description Status 07/28/2016 16761 Fiberoptic Laryngoscopy Completed 07/03/2014 34211 Fiberoptic Laryngoscopy Completed 07/13/2011 51435 Excision Lesion Of Oral Mucosa Completed 12/12/2010 07670 Endoscopic, Dacryocystorhinostomy Completed 09/17/2010 83465 Parathroidectomy Or Explanation Of Parathroid(S) Completed 09/17/2010 16766 Parathroidectomy Or Explanation Of Parathroid(S) Completed 04/08/2010 36149 No Show Fee Completed 12/10/2009 63870 Fiberoptic Laryngoscopy Completed 03/15/2009 41697 Endoscopic, Dacryocystorhinostomy Completed 01/01/2009 45589 Nasal Endoscopy, Diagnostic Completed 12/07/2008 90272 Endoscopic, Dacryocystorhinostomy Completed 01/31/2008 64135 Fiberoptic Laryngoscopy Completed 11/01/2007 64358 Fiberoptic Laryngoscopy Completed 10/14/2007 08086 Laryngoscopy W/TVC Strip,W/Micro Or Telescope Completed 10/03/2007 61057 Fiberoptic Laryngoscopy Completed Encounters Type Date Location Provider Dx Diagnosis Office Visit 05/18/2018 [facility] Pillo Harrington R06.02 Shortness of 10:30a 03/29/07 Rian Reinoso breath R09.81 Nasal congestion Office 09/13/2017 [facility]After Pillo Harrington R13.14 Dysphagia, Visit 11:15a 03/29/07 [facility] pharyngoesophageal Rian phase J30.9 Allergic rhinitis, unspecified E21.4 Other specified disorders of parathyroid gland Office Visit 06/25/2015 [facility],After Pillo Harrington R05 Cough 9:45a 03/29/07 Rian Reinoso Office Visit 02/03/2011 [facility],After Pillo Harrington 375.56 Stenosis Of 8:45a 03/29/07 Rian Reinoso Nasolacrimal Duct (Obstruction) 401.9 High Blood Pressure Or Hypertension/Unspecified Office Visit 12/17/2010 [facility] Pillo Harrington 375.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49 Hoarseness /Other Office Visit 03/05/2009 [facility],After Kwaku Selby.56 Stenosis Of 9:00a 03/29/07 Fatuma PORTABLE 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 OPERATOR Nasolacrimal Duct (Obstruction) Office Visit 01/28/2009 [facility],After Pillo Harrington 375.56 Stenosis Of 10:15a 03/29/07 [facility] Nasolacrimal Duct Ambar.DMarisela (Obstruction) Office Visit 12/12/2008 [facility],After Pillo Harrington 375.56 Stenosis Of 2:00p 03/29/07 [facility] Nasolacrimal Duct Ambar.DMarisela (Obstruction) Office Visit 11/26/2008 [facility],After Kwaku Selby.56 Stenosis Of 11:00a 03/29/07 Fatuma PORTABLE SAWMILL OPERATOR Nasolacrimal Duct (Obstruction) Office Visit 10/02/2008 [facility],After Pillo Harrington 375.56 Stenosis Of 2:45p 03/29/07 [facility] Nasolacrimal Duct M.DMarisela (Obstruction) Office Visit 10/10/2007 [facility],After Pillo Harrington 235.6 Neoplasm, 11:30a 03/29/07 [facility] Uncertain, Larynx M.D. Office Visit 10/03/2007 [facility],After Pillo Harrington 784.49 Hoarseness /Other 10:30a 03/29/07 Rian Reinoso 478.5 Vocal Cord Nodule Plan of Treatment 05/18/2018 - Pillo Reinoso M.D.R06.02 Shortness of breathNew Xrays: Chest X-ray PA & Lateral, Ordered: 05/18/18Comments:The patient presented today because of progressive congestion and SOB. She was a smoker but quit about 9 years ago. Her last chest Xray was 2017. I looked at that and she is normal. This might be allergies but my concern is the development of COPD. My recommendations are:1) Chest Xray2) Flonase for her nose3) [facility] [place] Nasal congestionNew Medication: Fluticasone Propionate 50 mcg/Act - 2 sprays in each nostril everyday
--- OUTSIDE RECORDS SUMMARY | 2018-06-05 14:37 | XMS REPORT | Continuity of Care Document ---
:1945 External Reference #:[id number] Author Name Kathy Vallejo Care Team Providers Name Role Phone Edilberto Flood MD Primary Care Physician Unavailable Payers Date Identification Numbers Payment Provider Subscriber Policy Number: [id number] Medicare Azar Morgan PayID: [id number] [address] [place] [address] Expires: 2017 Policy Number: [id number] Medicare Azar Morgan PayID: [id number] [address] [place] [address] Policy Number: [id number] [facility] Dakota Almonte PayID: [id number] [address] [place] [address] Advance Directives Description No Information Available Problems Date Description Provider Status Onset: 05/31/2013 Atrial fibrillation Joshua Zavala M.D., Active [facility], F[facility] Onset: 11/22/2013 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 Active phosphate crystals Onset: 11/22/2013 Synovitis and tenosynovitis Irving Alexander M.D. Active Onset: 11/22/2013 Synovial cyst of popliteal space Irving Alexander M.D. Active Onset: 10/02/2014 Common peroneal neuropathy Madeline Frias M.D. Active Onset: 10/02/2014 Lumbar radiculopathy Madeline Frias M.D. Active Onset: 12/19/2014 Iliotibial band friction syndrome Mando Lemus M.D. Active Onset: 09/16/2015 Localized, primary osteoarthritis Carla Page M.D. Active Onset: 02/24/2016 Arthroplasty of knee Carla Page M.D. Active Onset: 02/24/2016 Localized, primary osteoarthritis Carla Page M.D. Active of the pelvic region and thigh Onset: 05/13/2016 Reflex sympathetic dystrophy of Carla Page M.D. Active lower extremity Onset: 12/16/2016 Essential hypertension Edilberto Flood M.D. Active Onset: 12/16/2016 Paroxysmal atrial fibrillation Edilberto Flood M.D. Active Onset: 12/16/2016 Mild recurrent major depression Edilberto Flood M.D. Active Onset: 12/16/2016 Anxiety state Edilberto Flood M.D. Active Onset: 04/07/2017 Weight decreased Edilberto Flood M.D. Active Onset: 04/07/2017 Insomnia Edilberto Flood M.D. Active Onset: 02/23/2018 Gastroesophageal reflux disease Edilberto Flood M.D. Active Family History Date Family Member(s) Observation Comments General Heart Disease Father General Kidney Cancer Mother General depression in mother. Bipolar disorder in daughter. 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 years ago She tries to do water aerobics 3 times a week Allergies, Adverse Reactions, Alerts Date Description Reaction Status Severity Comments 11/20/2016 Statins Active 11/20/2016 Cymbalta Active large blisters on skin 05/26/2013 NKDA Inactive 10/05/2013 Simvastatin Weakness, achiness Inactive Medications Medication Date Status Form Strength Qnty SIG Indications Ordering Provider Trazodone HCL 05/04/ Active Tablets 50mg 60tabs 1-2 by 2018 mouth at Santamaria, bedtime as MD needed for insomnia Sertraline HCL 04/27/ Active Tablets 100mg 45tabs 1 and a F33.0 2018 half [place], tablets by mouth every day Omeprazole 12/28/ Active Capsules 20mg 90caps 1 by mouth Julio Esparza 2017 DR rayray [place]ani[place], morning Amoxicillin 07/05/ Active Tablets 500mg 4tabs take 4 2017 pills (2g) Pachikara 1 hour , M.D. before dental procedure. Alprazolam 01/13/ Active Tablets 1mg 30tabs take 1 F41.9 2016 tablet at [place], bed time Bupropion HCL 12/16/ Active Tablets ER 300mg 30tabs take one F33.0 Camille ER (XL) 2016 24HR tablet by MD Broderick mouth every morning Amlodipine / Active Tablets 5mg 1 by mouth Unknown Besylate 0000 every day Losartan / Active Tablets 50mg 1 by mouth Unknown Potassium 0000 every day Oxycodone HCL / Active Tablets 15mg 1 by mouth Unknown 0000 every 6 hours as needed pain Vitamin B-12 / Active Tablets 5000mcg once daily Unknown 0000 Sub Sertraline HCL 02/23/ Hx Tablets 50mg 60tabs 2 by mouth F33.0 2017 - every day Santamaria, 04/27/ 2019 Zolpidem 04/07/ Hx Tablets 10mg 30tabs 1/2 to 1 G47.00 Crystal Tartrate 2017 - tab by Tahir, 07/25/ mouth CELLULAR BIOLOGIST 2018 every night at bedtime as needed Escitalopram 02/24/ Hx Tablets 20mg 30tabs Take One F41.9 Edilberto Oxalate 2016 - Tablet By Aleena 02/23/ Mouth , M.D. 2017 Every Day Chantix 02/12/ Hx Tablets 1mg 60tabs 1 by mouth Edilberto 2016 - twice a Pachikara 12/06/ day , M.D. 2017 Amoxicillin 01/06/ Hx Capsules 500mg 4caps take 4 Carla 2016 - pills, 2 g Camilo, 07/25/ 1 hour M.D. 2018 before dental or gi procedure Alprazolam 01/01/ Hx Tablets 1mg 30tabs take 1 Edilberto 2016 - tablet Pachikara 01/13/ twice , M.D. 2016 daily as needed Alprazolam 12/16/ Hx Tablets 1mg 30tabs 1 tablet F41.9 Edilberto 2017 - by mouth Pachikara 12/16/ 12h as , M.D. 2017 needed Escitalopram 12/16/ Hx Tablets 10mg 30tabs Take One F41.9 Edilberto Oxalate 2016 - Tablet By Pachika 02/24/ Mouth , M.D. 2017 Every Day Gabapentin 11/20/ Hx Capsules 100mg 60caps (Not M79.7 Pillo 2017 - Taking)herbert Nunezr, 02/24/ e 1 M.D. 2017 capsule by mouth at night for 1 week then 1 by mouth twice daily ongoing Oxycodone-Aceta 07/03/ Hx Tablets 10-325mg 60tabs take 1 M25.561 Carla minophen 2016 - every 4 - Camilo, 11/20/ 6 hours as M.D. 2017 needed for pain. TENS Unit 06/29/ Hx 1units Use twice Carla2016 - daily as Camilo, 10/05/ needed for M.D. 2017 pain. Lyrica 05/13/ Hx Capsules 50mg 90caps 1 by mouth Z47.1 Carla 2016 - three Camilo, 06/14/ times a M.D. 2016 day Oxycodone-Aceta 05/13/ Hx Tablets 10-325mg 60tabs take 1 Z47.1 Carla minophen 2016 - every 4 - Camilo, 03/04/ hours as M.D. 2016 needed for pain. Oxycodone-Aceta 05/01/ Hx Tablets 5-325mg 90tabs take 1 to M25.561 Carla minophen 2016 - 2 tablets Camilo, 05/13/ by mouth M.D. 2016 every 6 to 8 hours as needed pain Naproxen 05/01/ Hx Tablets 500mg 30tabs 1 tablet Z47.1 Carla 2016 - with food Camilo, 03/04/ by mouth M.D. 2016 twice a day Oxycodone-Aceta 04/03/ Hx Tablets 10-325mg 30tabs take 1 M25.561 Carla minophen 2016 - tablet by Camilo, 05/01/ mouth M.D. 2016 every 4 to 6 hours as needed for pain Coumadin 02/10/ Hx Tablets 2mg 60tabs take 1-3 Carla 2015 - tabs by Camilo, 04/02/ mouth at 5 M.D. 2017 at night as directed Percocet 02/04/ Hx Tablets 5-325mg 45tabs 1-2 by Carla 2015 - mouth Camilo, 02/17/ every 6 M.D. 2016 hours as needed pain Colace 02/04/ Hx Capsules 100mg 60caps 1 tab by Carla 2015 - mouth Camilo, 04/02/ twice a M.D. 2016 day as needed [place] 01/01/ Hx Tablets 5-325mg 45tabs one tab by Carla 2015 - mouth Camilo, 02/03/ every 4-6 M.D. 2016 hours as needed pain Hydrocodone-Flako 07/04/ Hx Tablets 5-325mg 60tabs 1 - 2 tabs M25.552 Carla zunigainophen 2015 - by mouth Camilo, 03/04/ every 4-6 M.D. 2016 hours as needed pain do not fill until 04/24/16 Norvasc 02/07/ Hx Tablets 5mg 1 by mouth Madeline Jacobsen 2014 - every day Altagracia, M.D. 2015 Hydrocodone-Flako 12/04/ Hx Tablets 5-325mg 60tabs 1 - 2 tabs M25.552 Mando grace 2014 - by mouth Allan, 06/30/ every 6 M.D. 2015 hours prn pain Lyrica 10/10/ Hx Capsules 50mg 90caps 1 tab PO Violeta 2014 - QHS for Gnadt, CELLULAR BIOLOGIST 12/03/ 7days, july 2014 increase by 50MG PO QHS every 7 days until 150MG PO QHS Gabapentin 10/02/ Hx Tablets 600mg 60tabs 1-2 tabs 956.3 Madeline Jacobsen 2014 - by mouth Altagracia, 01/27/ every day M.D. 2014 at bedtime as directed Prednisone 12/21/ Hx Tablets 10mg qs 40mg qd x Irving 2013 - 3 days, Alexander, 10/01/ then 30mg M.D. 2014 x 3 days, then 20mg x 3 days, then 15mg x 3 days, then 10mg x 3 days, then 5mg qd thereafter . Hydrocodone-Flako 11/28/ Hx Tablets 5-325mg 30tabs 1 by mouth 727.51 Irving taminophen 2013 - every 4-6 Alexander, 10/01/ hours prn. M.D. 2014 Colcrys 11/22/ Hx Tablets 0.6mg 30tabs 1 by mouth 727.51 Irving 2013 - every Alexander, 10/01/ other day M.D. 2014 Prednisone 11/06/ Hx Tablets 20mg 30tabs 1 po qam 727.51 Irving 2013 - Benjamin, 11/22/ M.D. 2013 Vicodin 11/06/ Hx Tablets 5-300mg 30tabs 1 by mouth 727.51 Irving 2013 - every 8 h, Benjamin, 11/28/ as needed M.D. 2013 pain. may replace with vicodin 5-325 Propafenone HCL 10/16/ Hx Caps ER 225mg 180cap 1 by mouth 427.31 Joshua ER 2013 - HR s every Bryant 10/01/ Zavala, 2014 hours M.D., KONSTANTIN, VERONIQUE Tramadol HCL 10/05/ Hx Tablets 50mg 60tabs as needed Irving 2013 - Benjamin, 10/01/ M.D. 2014 Meloxicam 09/14/ Hx Tablets 7.5mg 60tabs 1 po bid Irving 2013 - Alexander, 10/05/ M.D. 2013 Potassium 06/19/ Hx Tablets ER 20Meq 1 tab po Joshua Chloride Leah 2013 - bid Bryant ER 10/01/ Zavala, 2014 Ambar.Dalton, KONSTANTIN, VERONIQUE Aspirin Ec Low 06/19/ Hx Tablets DR 81mg 90tabs 1 by mouth Joshua Dose 2013 - every day Bryant 10/09/ Zavala, 2013 Rian, VERONIQUE PRYOR Magnesium Oxide 06/19/ Hx Tablets 400mg 30tabs 2 by mouth Joshua 2013 - bid Bryant , 2014 Rian, KONSTANTIN, VERONIQUE Atenolol-Chlort 06/19/ Hx Tablets 50-25mg 1 tab po Joshua halidone 2013 - qd Manny Zavala, 2013 Rian, VERONIQUE PRYOR Amlodipine 06/19/ Hx Tablets 5mg 90tabs 1 by mouth Joshua Besylate 2013 - every day Bryant 10/01/ Zavala, 2014 Ambar.Charlie., VERONIQUE PRYOR Acetaminophen 00/ Hx Tablets ER 650mg 120tab 1 tab po Unknown ER 0000 - s q4h prn 2014 Aspirin 00/00/ Hx Tablets 325mg 1 po qd Unknown 0000 - 2013 Norvasc 00/00/ Hx Unknown 0000 - 2013 Atenolol 00/00/ Hx 1 tab po Unknown 0000 - every 06/19/ evening 2013 Estratest 00/00/ Hx 1 tab po Unknown 0000 - qd 2013 Prozac 00/00/ Hx Capsules 20mg 1 po qd Unknown 0000 - 2015 Prednisone 00/00/ Hx Tablets 10mg 1 by mouth Unknown 0000 - every day 2013 Coumadin 00/00/ Hx Tablets 5mg 90days as Unknown 0000 - up directed 2014 Toprol XL /00/ Hx Tablets ER 25mg 90tabs 1 by mouth Joshua 0000 - 24HR every day Manny 10/01/ Miguel Ángel Zavala M.D., [facility], [facility] Norvasc 00/00/ Hx Tablets 10mg 1 by mouth Unknown 0000 - every day 2014 Lisinopril 00/00/ Hx Tablets 20mg once daily Chante, 0000 - Traian 02/03/ Mar 2016 Alprazolam 00/00/ Hx Tablets 0.5mg 1 tab po Yoshi, 0000 - as needed Conner 02/03/ 2016 Esterified 00/00/ Hx Tablets 1.25-2.5mg once daily Unknown Estrogens/Methy 0000 - ltestosterone 2014 Restasis 00/ Hx Emulsion 0.05% one drop Unknown 0000 - to each 06/30/ eye twice 2016 daily PT Wearing 00/ Hx Unknown Heart Mon. For 0000 - A Week 2015 Cymbalta /00/ Hx Caps DR 30mg 1 by mouth Unknown 0000 - Part every day 2016 Wellbutrin SR /00/ Hx Tablets ER 100mg bid Unknown 0000 - 12HR 2016 Lidocaine /00/ Hx Ointment 5% prn Unknown - 2016 Colace 00/00/ Hx Capsules 100mg bid Unknown - 2016 Aspirin Ec Low 00/00/ Hx Tablets DR 81mg 1 by mouth Unknown Dose 0000 - every day 2017 Alprazolam 00/00/ Hx Tablets 0.5mg bid Unknown 0000 - 2016 Lyrica / Hx Capsules 100mg daily Unknown 0000 - 2016 Lyrica / Hx Capsules 50mg daily Unknown 0000 - 2016 Coumadin / Hx Tablets 1mg take as Unknown 0000 - directed 2016 Miralax / Hx Powder 17 grams Unknown 0000 - by mouth 05/05/ every day 2018 as needed Medications Administered in Office Medication Date Status Form Strength Qnty SIG Indications Ordering Provider Depomedrol 40MG 11/21/ Administered Injection Carla 2015 Rian Page Depomedrol 40MG 09/15/ Administered Injection Carla 2015 Rian Page Depomedrol 40MG 09/15/ Administered Injection Carla 2015 Rian Page Depomedrol 40MG 07/04/ Administered Injection Carla 2015 Rian Page Depomedrol 40MG 07/04/ Administered Injection Carla 2015 Rian Page Triamcinolone 10/05/ Administered Injection Irving (Kenalog) 2013 Rian Alexander Inj, 06/23/ Administered Injection Joshualandon Bryant Regadenoson, 0.1 2013 Lucas, MG Ambar.D., FAC, FASNC Technetium TC 06/23/ Administered Injection Joshua Bryant 99M Tetrofosmin, 2013 Lucas, Per Unit Dose Up M.D., To 40 FACC, Millicuries [facility] Immunizations CPT Code Status Date Vaccine Lot # [id number] Given 01/31/2018 Influenza Virus Vaccine, Quadrivalent, Split, Preservative Free Vital Signs Date Vital Result Comment 05/09/2018 4:07pm Height 63 inches 5'3" Weight 121.00 lb Heart Rate 79 /min BP Systolic 116 mmHg BP Diastolic 79 mmHg Body Temperature 96.0 F .2 O2 % BldC Oximetry 92 % BMI (Body Mass Index) 21.4 kg/m2 04/27/2018 1:36pm Height 63 inches 5'3" Weight 128.00 lb Heart Rate 72 /min BP Systolic Sitting 120 mmHg reg adult cuff left arm BP Diastolic Sitting 94 mmHg reg adult cuff left arm Respiratory Rate 16 /min O2 % BldC Oximetry 96 % at rest on room air BMI (Body Mass Index) 22.7 kg/m2 03/16/2018 2:41pm Height 63 inches 5'3" Weight 127.00 lb Heart Rate 80 /min BP Systolic Sitting 116 mmHg BP Diastolic Sitting 60 mmHg Body Temperature 97.9 F O2 % BldC Oximetry 95 % BMI (Body Mass Index) 22.5 kg/m2 02/24/2018 8:45am Height 63 inches 5'3" Weight 130.25 lb Heart Rate 76 /min BP Systolic 117 mmHg BP Diastolic 76 mmHg Respiratory Rate 18 /min Body Temperature 97.7 F O2 % BldC Oximetry 91 % BMI (Body Mass Index) 23.1 kg/m2 02/23/2018 11:19am Height 63 inches 5'3" Weight 130.00 lb Heart Rate 71 /min BP Systolic Sitting 111 mmHg BP Diastolic Sitting 69 mmHg O2 % BldC Oximetry 93 % BMI (Body Mass Index) 23.0 kg/m2 02/09/2018 9:00am Height 63 inches 5'3" Heart Rate 84 /min BP Systolic 114 mmHg BP Diastolic 80 mmHg Body Temperature 97.5 F Pain Level 6 12/21/2017 9:19am Height 63 inches 5'3" Weight 128.00 lb Heart Rate 74 /min BP Systolic 108 mmHg BP Diastolic 66 mmHg Respiratory Rate 12 /min Pain Level 6 BMI (Body Mass Index) 22.7 kg/m2 12/06/2017 2:53pm Height 63 inches 5'3" Weight 130.25 lb Heart Rate 68 /min BP Systolic 110 mmHg BP Diastolic 73 mmHg Respiratory Rate 17 /min Body Temperature 97.6 F O2 % BldC Oximetry 98 % BMI (Body Mass Index) 23.1 kg/m2 11/17/2017 9:29am Height 63 inches 5'3" Weight 125.00 lb Heart Rate 68 /min BP Systolic 137 mmHg BP Diastolic 88 mmHg Body Temperature 96.4 F BMI (Body Mass Index) 22.1 kg/m2 11/05/2017 10:07am Height 64 inches 5'4" Weight 125.00 lb Respiratory Rate 16 /min BMI (Body Mass Index) 21.5 kg/m2 10/25/2017 11:55am Height 64 inches 5'4" Weight 125.00 lb BP Systolic 116 mmHg BP Diastolic 74 mmHg Body Temperature 97.7 F Pain Level 8 BMI (Body Mass Index) 21.5 kg/m2 10/06/2017 2:06pm Height 64 inches 5'4" Weight 124.00 lb Heart Rate 64 /min BP Systolic Sitting 144 mmHg BP Diastolic Sitting 96 mmHg O2 % BldC Oximetry 98 % BMI (Body Mass Index) 21.3 kg/m2 2017 2:22pm Height 64 inches 5'4" Weight 120.00 lb Heart Rate 76 /min BP Systolic 126 mmHg BP Diastolic 76 mmHg BMI (Body Mass Index) 20.6 kg/m2 04/07/2017 2:40pm Height 64 inches 5'4" Weight 118.00 lb Heart Rate 67 /min BP Systolic 120 mmHg BP Diastolic 80 mmHg O2 % BldC Oximetry 96 % BMI (Body Mass Index) 20.3 kg/m2 02/24/2017 9:50am Weight 121.00 lb Heart Rate 70 /min BP Systolic Sitting 118 mmHg BP Diastolic Sitting 72 mmHg O2 % BldC Oximetry 97 % 01/13/2017 11:30am Height 64 inches 5'4" Weight 121.25 lb Heart Rate 89 /min BP Systolic 110 mmHg BP Diastolic 60 mmHg O2 % BldC Oximetry 98 % BMI (Body Mass Index) 20.8 kg/m2 12/16/2016 3:29pm Height 64 inches 5'4" Weight 123.25 lb Heart Rate 56 /min BP Systolic 120 mmHg BP Diastolic 68 mmHg Body Temperature 98.6 F O2 % BldC Oximetry 96 % BMI (Body Mass Index) 21.2 kg/m2 11/20/2016 9:55am Height 64 inches 5'4" Weight 122.25 lb Heart Rate 76 /min BP Systolic Sitting 100 mmHg BP Diastolic Sitting 66 mmHg Respiratory Rate 14 /min Pain Level 4 BMI (Body Mass Index) 21.0 kg/m2 08/07/2016 9:28am Height 64 inches 5'4" Weight 125.00 lb Heart Rate 83 /min BP Systolic 129 mmHg BP Diastolic 80 mmHg Body Temperature 98.2 F Pain Level 4 BMI (Body Mass Index) 21.5 kg/m2 07/08/2016 2:09pm Height 63 inches 5'3" Weight 125.00 lb Heart Rate 83 /min BP Systolic 112 mmHg BP Diastolic 78 mmHg Body Temperature 96.5 F BMI (Body Mass Index) 22.1 kg/m2 07/03/2016 9:56am Height 63 inches 5'3" Weight 130.00 lb Heart Rate 79 /min BP Systolic 142 mmHg BP Diastolic 94 mmHg Respiratory Rate 17 /min Body Temperature 98.1 F Pain Level 7 BMI (Body Mass Index) 23.0 kg/m2 06/15/2016 10:46am Height 63 inches 5'3" Weight 130.00 lb Heart Rate 100 /min BP Systolic 145 mmHg BP Diastolic 89 mmHg Body Temperature 97.8 F Pain Level 5 BMI (Body Mass Index) 23.0 kg/m2 05/13/2016 10:27am Height 63 inches 5'3" Weight 130.00 lb Heart Rate 90 /min BP Systolic 137 mmHg BP Diastolic 91 mmHg Pain Level 6 BMI (Body Mass Index) 23.0 kg/m2 05/01/2016 11:08am Height 63 inches 5'3" Weight 133.00 lb Heart Rate 84 /min BP Systolic 134 mmHg BP Diastolic 86 mmHg Pain Level 6 BMI (Body Mass Index) 23.6 kg/m2 04/03/2016 1:31pm Height 64 inches 5'4" Heart Rate 90 /min BP Systolic 130 mmHg BP Diastolic 90 mmHg Pain Level 5 02/24/2016 3:02pm Heart Rate 110 /min BP Systolic 130 mmHg BP Diastolic 83 mmHg Pain Level 5 02/05/2016 10:26am Height 64 inches 5'4" Weight 138.00 lb Heart Rate 81 /min BP Systolic 136 mmHg BP Diastolic 95 mmHg BMI (Body Mass Index) 23.7 kg/m2 11/22/2015 3:29pm Height 64 inches 5'4" Weight 138.00 lb Pain Level 10 BMI (Body Mass Index) 23.7 kg/m2 10/11/2015 9:49am Height 64 inches 5'4" Weight 138.00 lb Pain Level 0 BMI (Body Mass Index) 23.7 kg/m2 09/16/2015 8:29am Height 64 inches 5'4" Weight 138.00 lb Heart Rate 83 /min BP Systolic 134 mmHg BP Diastolic 82 mmHg BMI (Body Mass Index) 23.7 kg/m2 07/05/2015 1:53pm Height 64 inches 5'4" Weight 138.00 lb Pain Level 8 BMI (Body Mass Index) 23.7 kg/m2 02/07/2015 3:36pm Height 64 inches 5'4" Weight 138.00 lb Heart Rate 76 /min BP Systolic Sitting 124 mmHg BP Diastolic Sitting 92 mmHg Respiratory Rate 16 /min BMI (Body Mass Index) 23.7 kg/m2 01/11/2015 9:49am Height 64 inches 5'4" Weight 140.00 lb Respiratory Rate 18 /min BMI (Body Mass Index) 24.0 kg/m2 12/19/2014 2:50pm Height 64 inches 5'4" Weight 140.00 lb Heart Rate 60 /min BP Systolic Sitting 121 mmHg BP Diastolic Sitting 76 mmHg Respiratory Rate 18 /min Pain Level 8 BMI (Body Mass Index) 24.0 kg/m2 12/04/2014 3:14pm Height 62.5 inches 5'2.50" Weight 140.00 lb Heart Rate 64 /min BP Systolic Sitting 120 mmHg BP Diastolic Sitting 68 mmHg Respiratory Rate 14 /min BMI (Body Mass Index) 25.2 kg/m2 10/02/2014 9:59am Height 62.5 inches 5'2.50" Weight 136.00 lb Heart Rate 60 /min BP Systolic Sitting 128 mmHg BP Diastolic Sitting 72 mmHg Respiratory Rate 16 /min BMI (Body Mass Index) 24.5 kg/m2 11/22/2013 3:22pm Height 62.5 inches 5'2.50" Weight 140.00 lb Heart Rate 52 /min BP Systolic Sitting 140 mmHg BP Diastolic Sitting 80 mmHg Pain Level 3 BMI (Body Mass Index) 25.2 kg/m2 11/10/2013 9:16am Height 62.5 inches 5'2.50" Weight 138.00 lb Heart Rate 60 /min BP Systolic Sitting 150 mmHg BP Diastolic Sitting 80 mmHg Pain Level 3 BMI (Body Mass Index) 24.8 kg/m2 11/06/2013 1:49pm Height 62.5 inches 5'2.50" Weight 137.00 lb Heart Rate 96 /min BP Systolic Sitting 118 mmHg BP Diastolic Sitting 64 mmHg Pain Level 10 BMI (Body Mass Index) 24.7 kg/m2 10/16/2013 9:12am Height 62.5 inches 5'2.50" Weight 135.00 lb no shoes Heart Rate 64 /min BP Systolic Sitting 152 mmHg LA, reg cuff BP Diastolic Sitting 82 mmHg LA, reg cuff BP Systolic Standing 128 mmHg BP Diastolic Standing 80 mmHg Respiratory Rate 14 /min BMI (Body Mass Index) 24.3 kg/m2 10/09/2013 10:50am Height 63 inches 5'3" Weight 136.00 lb Heart Rate 64 /min BP Systolic Sitting 110 mmHg BP Diastolic Sitting 64 mmHg BMI (Body Mass Index) 24.1 kg/m2 10/05/2013 8:02am Height 63 inches 5'3" Weight 135.75 lb Heart Rate 68 /min BP Systolic Sitting 130 mmHg BP Diastolic Sitting 80 mmHg BMI (Body Mass Index) 24.0 kg/m2 09/08/2013 7:59am Height 63 inches 5'3" Weight 137.50 lb Heart Rate 72 /min BP Systolic Sitting 110 mmHg BP Diastolic Sitting 66 mmHg Pain Level 0 BMI (Body Mass Index) 24.4 kg/m2 08/25/2013 11:55am Heart Rate 80 /min BP Systolic Sitting 120 mmHg BP Diastolic Sitting 72 mmHg BP Systolic Standing 122 mmHg BP Diastolic Standing 70 mmHg Respiratory Rate 16 /min 05/31/2013 10:39am Height 54 inches 4'6" Weight 131.00 lb Heart Rate 74 /min BP Systolic 120 mmHg right arm, reg cuff BP Diastolic 82 mmHg right arm, reg cuff BP Systolic Sitting 116 mmHg left arm, reg cuff BP Diastolic Sitting 80 mmHg left arm, reg cuff BP Systolic Standing 104 mmHg left arm, reg cuff BP Diastolic Standing 70 mmHg left arm, reg cuff Respiratory Rate 16 /min BMI (Body Mass Index) 31.6 kg/m2 Results Test Date Facility Test Result H/L Range Note CBC No Diff 05/09/2018 [facility] White Blood 11.0 10^3/uL High 3.5-10.[address] [place] [address] [phone] Red Blood Count 4.30 10^6/uL N 4.00-5.40 Hemoglobin 13.8 g/dL N 12.0-16.0 Hematocrit 42 % N 35-47 Mean Corpuscular Volume 97 fL N 80-97 Mean Corpuscular Hemoglobin 32 pg High 27-31 Mean Corpuscular HGB Conc 33 g/dL N 31-36 Red Cell Distribution Width 13 % N 10.5-15 Platelet Count 287 10^3/uL N 150-450 Mean Platelet Volume 9.6 fL N 7.4-10.4 Comp Metabolic Panel 05/09/2018 [facility] Sodium 141 mmol/L N 135-[address] [place] [address] [phone] Potassium 3.9 mmol/L N 3.5-5.0 Chloride 102 mmol/L N 101-111 Co2 Carbon Dioxide 32 mmol/L N 22-32 Anion Gap 7 mmol/L N 2-11 Glucose 96 mg/dL N 70-100 Blood Urea Nitrogen 14 mg/dL N 6-24 Creatinine 0.86 mg/dL N 0.51-0.95 BUN/Creatinine Ratio 16.3 N 8-20 Calcium 10.1 mg/dL N 8.6-10.3 Total Protein 6.3 g/dL Low 6.4-8.9 Albumin 4.3 g/dL N 3.2-5.2 Globulin 2.0 g/dL N 2-4 Albumin/Globulin Ratio 2.2 N 1-3 Total Bilirubin 0.30 mg/dL N 0.2-1.0 Alkaline Phosphatase 72 U/L N 34-104 Alt 12 U/L N 7-52 Ast 15 U/L N 13-39 Egfr Non- 65.0 >60 Egfr 78.7 >60 1 Inr/Protime 02/24/2018 [facility] Inr 0.83 N 0.77-1.02 [address] [place] [address] [phone] Laboratory test 02/24/2018 [facility] Lipase 41 U/L N 11.0- 82.0 finding [address] [place] [address] [phone] Laboratory test 02/24/2018 [facility] Amylase 61 U/L N 29-103 finding [address] [place] [address] [phone] Comp Metabolic 02/24/2018 [facility] Sodium 140 mmol/L N 135- 145 Panel [address] [place] [address] [phone] Potassium 4.6 mmol/L N 3.5-5.0 Chloride 102 mmol/L N 101-111 Co2 Carbon Dioxide 31 mmol/L N 22-32 Anion Gap 7 mmol/L N 2-11 Glucose 87 mg/dL N 70-100 Blood Urea Nitrogen 16 mg/dL N 6-24 Creatinine 0.70 mg/dL N 0.51-0.95 BUN/Creatinine Ratio 22.9 High 8-20 Calcium 10.0 mg/dL N 8.6-10.3 Total Protein 6.4 g/dL N 6.4-8.9 Albumin 4.4 g/dL N 3.2-5.2 Globulin 2.0 g/dL N 2-4 Albumin/Globulin Ratio 2.2 N 1-3 Total Bilirubin 0.60 mg/dL N 0.2-1.0 Alkaline Phosphatase 78 U/L N 34-104 Alt 15 U/L N 7-52 Ast 14 U/L N 13-39 Egfr Non- 82.5 >60 Egfr 99.8 >60 2 CBC Auto 02/24/2018 [facility] White Blood 13.1 10^3/uL High 3.5-10.[address] [place] [address] [phone] Red Blood Count 4.49 10^6/uL N 4.00-5.40 Hemoglobin 14.6 g/dL N 12.0-16.0 Hematocrit 44 % N 35-47 Mean Corpuscular Volume 99 fL High 80-97 Mean Corpuscular Hemoglobin 33 pg High 27-31 Mean Corpuscular HGB Conc 33 g/dL N 31-36 Red Cell Distribution Width 13 % N 10.5-15 Platelet Count 245 10^3/uL N 150-450 Mean Platelet Volume 9.7 fL N 7.4-10.4 Abs Neutrophils 8.2 10^3/uL High 1.5-7.7 Abs Lymphocytes 3.4 10^3/uL N 1.0-4.8 Abs Monocytes 0.9 10^3/uL High 0-0.8 Abs Eosinophils 0.5 10^3/uL N 0-0.6 Abs Basophils 0.1 10^3/uL N 0-0.2 Abs Nucleated RBC 0 10^3/uL Granulocyte % 62.8 % Lymphocyte % 25.6 % Monocyte % 6.8 % Eosinophil % 4.2 % Basophil % 0.6 % Nucleated Red Blood Cells % 0 Laboratory test 12/28/2017 [facility] Clotest SEE RESULT [address] [place] [address] [phone] Laboratory test 12/28/2017 [facility] Surgical SEE RESULT [address] Interface [place] [address] [phone] Comp Metabolic 12/24/2017 [facility] Sodium 139 mmol/L N 135- [address] [place] [address] [phone] Potassium 4.5 mmol/L N 3.5-5.0 Chloride 104 mmol/L N 101-111 Co2 Carbon Dioxide 31 mmol/L N 22-32 Anion Gap 4 mmol/L N 2-11 Glucose 95 mg/dL N 70-100 Blood Urea Nitrogen 13 mg/dL N 6-24 Creatinine 0.69 mg/dL N 0.51-0.95 BUN/Creatinine Ratio 18.8 N 8-20 Calcium 10.0 mg/dL N 8.6-10.3 Total Protein 6.1 g/dL Low 6.4-8.9 Albumin 4.1 g/dL N 3.2-5.2 Globulin 2.0 g/dL N 2-4 Albumin/Globulin Ratio 2.1 N 1-3 Total Bilirubin 0.30 mg/dL N 0.2-1.0 Alkaline Phosphatase 118 U/L High 34-104 Alt 54 U/L High 7-52 Ast 20 U/L N 13-39 Egfr Non- 83.9 >60 Egfr 101.5 >60 5 Laboratory test 12/24/2017 [facility] C Reactive 1.04 mg/L N < 8.[address] [place] [address] [phone] TSH (Thyroid Stim Horm) 1.55 mcIU/mL N 0.34-5.60 CBC No Diff 11/23/2017 [facility] White Blood 12.1 10^3/uL High 3.5-10.[address] [place] [address] [phone] Red Blood Count 4.11 10^6/uL N 4.00-5.40 Hemoglobin 13.7 g/dL N 12.0-16.0 Hematocrit 40 % N 35-47 Mean Corpuscular Volume 98 fL High 80-97 Mean Corpuscular Hemoglobin 33 pg High 27-31 Mean Corpuscular HGB Conc 34 g/dL N 31-36 Red Cell Distribution Width 13 % N 10.5-15 Platelet Count 283 10^3/uL N 150-450 Mean Platelet Volume 9.8 um3 N 7.4-10.4 Comp Metabolic Panel 11/23/2017 [facility] Sodium 142 mmol/L N 135-[address] [place] [address] [phone] Potassium 4.5 mmol/L N 3.5-5.0 Chloride 104 mmol/L N 101-111 Co2 Carbon Dioxide 33 mmol/L High 22-32 Anion Gap 5 mmol/L N 2-11 Glucose 106 mg/dL High 70-100 Blood Urea Nitrogen 13 mg/dL N 6-24 Creatinine 0.76 mg/dL N 0.51-0.95 BUN/Creatinine Ratio 17.1 N 8-20 Calcium 10.0 mg/dL N 8.6-10.3 Total Protein 6.3 g/dL Low 6.4-8.9 Albumin 4.1 g/dL N 3.2-5.2 Globulin 2.2 g/dL N 2-4 Albumin/Globulin Ratio 1.9 N 1-3 Total Bilirubin 0.50 mg/dL N 0.2-1.0 Alkaline Phosphatase 84 U/L N 34-104 Alt 17 U/L N 7-52 Ast 17 U/L N 13-39 Egfr Non- 75.0 >60 Egfr 90.8 >60 6 Lipid Profile 04/08/2017 [facility] Triglycerides 223 mg/dL 7 (Trig/Chol/HDL) [address] [place], [place] [id number] [phone] Cholesterol 175 mg/dL 8 HDL Cholesterol 45.0 mg/dL 9 LDL Cholesterol 85 mg/dL 10 Comp Metabolic Panel 04/08/2017 [facility] Sodium 139 mmol/L N 133-145 [address] [place], [place] [id number] [phone] Potassium 4.1 mmol/L N 3.5-5.0 Chloride 103 mmol/L N 101-111 Co2 Carbon Dioxide 29 mmol/L N 22-32 Anion Gap 7 mmol/L N 2-11 Glucose 114 mg/dL High 70-100 Blood Urea Nitrogen 12 mg/dL N 6-24 Creatinine 0.65 mg/dL N 0.51-0.95 BUN/Creatinine Ratio 18.5 N 8-20 Calcium 9.8 mg/dL N 8.6-10.3 Total Protein 5.9 g/dL Low 6.4-8.9 Albumin 3.8 g/dL N 3.2-5.2 Globulin 2.1 g/dL N 2-4 Albumin/Globulin Ratio 1.8 N 1-3 Total Bilirubin 0.40 mg/dL N 0.2-1.0 Alkaline Phosphatase 157 U/L High 34-104 Alt 45 U/L N 7-52 Ast 61 U/L High 13-39 Egfr Non- 90.1 >60 Egfr 115.9 >60 11 Laboratory test 04/08/2017 [facility] TSH (Thyroid 2.16 N 0.34 -5.60 [address] Stim Horm) mcIU/[place] [address] [phone] CBC Auto Diff 04/08/2017 [facility] White Blood 11.0 High 3.5- 10.[address] Count 10^3/[place] [address] [phone] Red Blood Count 4.51 10^6/uL N 4.0-5.4 Hemoglobin 13.5 g/dL N 12.0-16.0 Hematocrit 41 % N 35-47 Mean Corpuscular Volume 91 fL N 80-97 Mean Corpuscular Hemoglobin 30 pg N 27-31 Mean Corpuscular HGB Conc 33 g/dL N 31-36 Red Cell Distribution Width 20 % High 10.5-15 Platelet Count 352 10^3/uL N 150-450 Mean Platelet Volume 9 um3 N 7.4-10.4 Abs Neutrophils 5.7 10^3/uL N 1.5-7.7 Abs Lymphocytes 4.1 10^3/uL N 1.0-4.8 Abs Monocytes 0.8 10^3/uL N 0-0.8 Abs Eosinophils 0.3 10^3/uL N 0-0.6 Abs Basophils 0.1 10^3/uL N 0-0.2 Abs Nucleated RBC 0 10^3/uL Granulocyte % 52.3 % N 38-83 Lymphocyte % 37.5 % N 25-47 Monocyte % 6.9 % N 1-9 Eosinophil % 2.6 % N 0-6 Basophil % 0.7 % N 0-2 Nucleated Red Blood Cells % 0 Liver Function 04/08/2017 [facility] Total Protein 5.9 g/dL Low 6.4-8.[address] [place] [address] [phone] Albumin 3.7 g/dL N 3.2-5.2 Globulin 2.2 g/dL N 2-4 Albumin/Globulin Ratio 1.7 N 1-3 Total Bilirubin 0.30 mg/dL N 0.2-1.0 Direct Bilirubin 0.10 mg/dL N 0.03-0.18 Indirect Bilirubin 0.2 mg/dL Low 0.3-1.0 Alkaline Phosphatase 151 U/L High 34-104 Alt 45 U/L N 7-52 Ast 61 U/L High 13-39 Laboratory test finding 04/08/2017 [facility] Amylase 92 U/L N 29-[address] [place] [address] [phone] Lipase 131 U/L High 11.0-82.0 Comp Metabolic Panel 04/08/2017 [facility] Sodium 139 mmol/L N 133-[address] [place] [address] [phone] Potassium 4.1 mmol/L N 3.5-5.0 Chloride 103 mmol/L N 101-111 Co2 Carbon Dioxide 29 mmol/L N 22-32 Anion Gap 7 mmol/L N 2-11 Glucose 114 mg/dL High 70-100 Blood Urea Nitrogen 12 mg/dL N 6-24 Creatinine 0.65 mg/dL N 0.51-0.95 BUN/Creatinine Ratio 18.5 N 8-20 Calcium 9.8 mg/dL N 8.6-10.3 Total Protein 5.9 g/dL Low 6.4-8.9 Albumin 3.8 g/dL N 3.2-5.2 Globulin 2.1 g/dL N 2-4 Albumin/Globulin Ratio 1.8 N 1-3 Total Bilirubin 0.40 mg/dL N 0.2-1.0 Alkaline Phosphatase 157 U/L High 34-104 Alt 45 U/L N 7-52 Ast 61 U/L High 13-39 Egfr Non- 90.1 >60 Egfr 115.9 >60 13 Lipid Profile 04/08/2017 [facility] Triglycerides 223 mg/dL 14 (Trig/Chol/HDL) [address] [place] [address] [phone] Cholesterol 175 mg/dL 15 HDL Cholesterol 45.0 mg/dL 16 LDL Cholesterol 85 mg/dL 17 Laboratory test 04/08/2017 [facility] TSH (Thyroid 2.16 mcIU/mL N 0.34-5.60 [address] Stim Horm) [place] [address] [phone] Ferritin 36.8 ng/mL N 11-307 Vitamin B12 921 pg/mL High 180-914 19 Laboratory 11/20/2016 [facility] TSH 1.71 N 0.34-5.[address] (Thyroid mcIU/[place] [address] Stim Horm) [phone] CK Isoenzymes 11/20/2016 [facility] Creatine 32 U/L Abnormal 38 - 176 [address] [place] [address] [phone] CK Isoenzyme Elec, Specimen See Comment N 20 Iron & Iron Binding 11/20/2016 [facility] Iron 145 g/dL N 50 -[address] [place] [address] [phone] Unsaturated Iron Binding 195 g/dL N Total Iron Binding Capacity 340 g/dL N 250-450 % Iron Saturation 43 % N 15-55 Laboratory 11/20/2016 [facility] Smooth Negative N Negative 21 test finding [address] [place] [address] Antibody [phone] Hepatitis 11/20/2016 [facility] Hepatitis C Nonreactive N Nonreactive Acute Panel [address] [place], [place] [id number] [phone] Hepatitis A AB Igm Nonreactive N Nonreactive Hepatitis B Core AB Igm Nonreactive N Nonreactive Hepatitis B Surface Ag Nonreactive N Nonreactive Vitamin D 1,25 11/20/2016 [facility] Vitamin D 29.1 ng/mL Low 30-50 And Vitamin D,2 101 Total 25(Oh) [place], [place] [address] [phone] Vitamin D, 1,25 Dihydroxy 49 pg/mL N 18-78 22 Protein 11/20/2016 [facility] Total 6.6 g/dL N 6.3 - Electrophoresis [address] Protein(Pep) 7.9 [place], [place] [id number] [phone] Albumin 3.3 g/dL Abnormal 3.4-4.7 Alpha-1 Globulin 0.3 g/dL N 0.1-0.3 Alpha-2 Globulin 1.2 g/dL Abnormal 0.6-1.0 Beta Globulin 1.0 g/dL N 0.7-1.2 Gamma Globulin 0.8 g/dL N 0.6-1.6 Albumin/Globulin Ratio 1.01 N Impression See Comment N 23 Celiac Panel 11/20/2016 [facility] Tissue Transglutaminase <1.2 U/mL N [address] [place] [address] [phone] Immunoglobulin A 152 mg/dL N 61 - 356 Celiac Interpretation See Comment N 25 Celiac Hla DQ1/DQ2 11/20/2016 [facility] [id number] SEE BELOW N [address] [place] [address] [phone] [id number] SEE BELOW N 27 Celiac Gene Pairs Present? Equivocal N Celiac Gene Interpretation See Comment N 28 Laboratory test 11/20/2016 [facility] Erythrocyte Sed 26 mm/Hr N 0-[address] [place] [address] [phone] C Reactive Protein 10.40 mg/L High < 5.00 29 Hla B27 11/20/2016 [facility] Hla B27 Positive N [address] [place], [place] [id number] [phone] Hla B27 Interp See Comment N 31 Vitamin B12 And 11/20/2016 [facility] Vitamin B12 561 pg/mL N 180-914 32 Folate Serum [address] [place] [address] [phone] Folic Acid (Folate) 19.06 ng/mL N >3.99 Laboratory 11/20/2016 [facility] Aso Negative N <200 33 test finding 101 [facility] (Antistreptolysin O) IU/mL Iu/[place] [address] Titer [phone] Angiotensin Converting Enzyme 39 U/L N 8 - 53 34 Rheumatoid Factor <15 IU/mL N <15 35 Connective Tissue 11/20/2016 [facility] Anti-Nuclear 0.3 U N [address] [place] [address] [phone] Cyclic Citrullinated Peptide <15.6 U N 37 Interpretation See Comment N 38 Comp Metabolic Panel 02/05/2016 [facility] Sodium 139 mmol/L N 133-[address] [place] [address] [phone] Potassium 4.2 mmol/L N 3.5-5.0 Chloride 103 mmol/L N 101-111 Co2 Carbon Dioxide 30 mmol/L N 22-32 Anion Gap 6 mmol/L N 2-11 Glucose 95 mg/dL N 70-100 Blood Urea Nitrogen 16 mg/dL N 6-24 Creatinine 0.68 mg/dL N 0.51-0.95 BUN/Creatinine Ratio 23.5 High 8-20 Calcium 10.1 mg/dL N 8.6-10.3 Total Protein 6.3 g/dL Low 6.4-8.9 Albumin 4.2 g/dL N 3.2-5.2 Globulin 2.1 g/dL N 2-4 Albumin/Globulin Ratio 2.0 N 1-3 Total Bilirubin 0.70 mg/dL N 0.2-1.0 Alkaline Phosphatase 185 U/L High 34-104 Alt 194 U/L High 7-52 Ast 232 U/L High 13-39 Egfr Non- 85.8 N >60 Egfr 110.3 N >60 40 Inr/Protime 02/05/2016 [facility] Inr 0.89 N 0.89-1.[address] [place] [address] [phone] Laboratory test 02/05/2016 [facility] Partial 33.5 N 26.0- 36.3 [address] [place] [address] Time PTT [phone] CBC No Diff 02/05/2016 [facility] White Blood 11.3 High 3.5- 10.[address] Count 10^3/[place] [address] [phone] Red Blood Count 4.13 10^6/uL N 4.0-5.4 Hemoglobin 14.0 g/dL N 12.0-16.0 Hematocrit 42 % N 35-47 Mean Corpuscular Volume 102 fL High 80-97 Mean Corpuscular Hemoglobin 34 pg High 27-31 Mean Corpuscular HGB Conc 33 g/dL N 31-36 Red Cell Distribution Width 13 % N 10.5-15 Platelet Count 246 10^3/uL N 150-450 Mean Platelet Volume 9 um3 N 7.4-10.4 Urinalysis Profile 02/05/2016 [facility] Urine Color Yellow N [address] [place] [address] [phone] Urine Appearance Clear N Urine Specific [place]mera 1.016 N 1.010-1.030 Urine pH 5.0 N 5-9 Urine Urobilinogen Negative N Negative Urine Ketones Negative N Negative Urine Protein Negative N Negative Urine Leukocytes Trace Abnormal Negative Urine Blood Negative N Negative Urine Nitrite Negative N Negative Urine Bilirubin Negative N Negative Urine Glucose Negative N Negative Urine White Blood Cell Trace(0-5/hpf) N Absent Urine Red Blood Cell Trace(0-2/hpf) N Absent Urine Bacteria Absent N Absent Urine Squamous Epithelial Cell Present Abnormal Absent Urine Culture And 02/05/2016 [facility] Urine Culture SEE RESULT [address] [place] [address] [phone] Type & Screen 02/05/2016 [facility] Patient Blood O Positive N [address] [place] [address] [phone] Antibody Screen NEGATIVE N Laboratory test 10/12/2013 [facility] CRP High 3.55 mg/L N [address] [place] [address] [phone] Cyclic Citrullinated Pept IgG <15.6 U N 44 Erythrocyte Sed Rate 16 mm/Hr N 0-40 Rheumatoid Factor <15 IU/mL N <15 45 Body Fluid 10/05/2013 [facility] Body Fluid Synovial Fluid N 46 Cell Count [address] [place] [address] [phone] Body Fluid Appearance Bloody N Body Fluid Color (SEE NOTE) N 47 Body Fluid Volume 0.5 mL N Body Fluid WBC 1080 N Body Fluid RBC [id number] N Body Fluid Polys 55 N Body Fluid Lymph 28 N Body Fluid Eosinophil 5 N Body Fluid Basophils 1 N Body Fluid Other Cells 11 N Body Fluid Total Cells Counted 100 N Fluid Reviewed By MD (SEE NOTE) N 48 Laboratory test 10/05/2013 [facility] Fluid Crystals None Seen N [address] [place] [address] [phone] Laboratory test 09/14/2013 Erythrocyte Sed 15 mm/Hr N 0-40 finding Rate TSH (Thyroid Stimulating Horm) 2.56 IU/mL N 0.34-5.60 Maribel (Anti-Nuclear AB) Screen Negative N Negative Rheumatoid Factor <15 IU/mL N <15 50 Ssa/SSB Abs Igg 09/14/2013 SS-A/Ro Antibody <0.2 U N 51 SS-B/La Antibody <0.2 U N 52 Laboratory test 09/14/2013 C Reactive 4.34 mg/L N < 5.00 53 finding Protein Laboratory test 06/09/2013 [facility] Magnesium 1.6 mg/dL Low 1.9-2.7 finding 101 [place] [address] [phone] Basic Metabolic 06/09/2013 [facility] Sodium 136 mmol/L 133- 145 Panel 101 [place] [address] [phone] Potassium 3.2 mmol/L Low 3.7-5.6 Chloride 97 mmol/L Low 101-111 Co2 Carbon Dioxide 31 mmol/L 22-32 Anion Gap 8 mmol/L 2-11 Glucose 109 mg/dL High 70-100 Blood Urea Nitrogen 15 mg/dL 6-24 Creatinine 0.68 mg/dL 0.51-0.95 BUN/Creatinine Ratio 22.1 High 8-20 Calcium 9.9 mg/dL 8.6-10.3 Egfr Non- 86.6 >60 Egfr 111.3 >60 54 Comp Metabolic Panel 05/18/2013 [facility] Sodium 140 mmol/L 133-145 [address] [place] [address] [phone] Potassium 3.3 mmol/L Low 3.7-5.6 Chloride 105 mmol/L 101-111 Co2 Carbon Dioxide 23 mmol/L 22-32 Anion Gap 12 mmol/L High 2-11 Glucose 108 mg/dL High 70-100 Blood Urea Nitrogen 21 mg/dL 6-24 Creatinine 0.75 mg/dL 0.51-0.95 BUN/Creatinine Ratio 28.0 High 8-20 Calcium 10.3 mg/dL 8.6-10.3 Total Protein 6.7 g/dL 6.4-8.9 Albumin 4.4 g/dL 3.2-5.2 Globulin 2.3 g/dL 2-4 Albumin/Globulin Ratio 1.9 1-3 Total Bilirubin 0.50 mg/dL 0.2-1.0 Alkaline Phosphatase 58 U/L 34-104 Alt 17 U/L 7-52 Ast 18 U/L 13-39 Egfr Non- 77.3 >60 Egfr 99.4 >60 55 Laboratory test 05/18/2013 [facility] Magnesium 1.8 mg/dL Low 1.9-2.7 finding [address] [place] [address] [phone] Creatine Kinase 62 U/L 10-223 CKMB 05/18/2013 [facility] CKMB ng/mL 2.9 ng/mL 0.6-6.[address] [place] [address] [phone] Laboratory test 05/18/2013 [facility] Troponin I 0.01 ng/mL < 0.03 [address] [place] [address] [phone] TSH (Thyroid Stimulating Horm) 2.36 IU/mL 0.34-5.60 Laboratory test 05/18/2013 [facility] Activated 31.6 24.0- 36.[address] [place] [address] Thrombo Time [phone] Inr/Protime 05/18/2013 [facility] Inr 0.85 0.85-1.[address] [place] [address] [phone] CBC Auto Diff 05/18/2013 [facility] White Blood 17.6 High 4.8- 10.[address] Count 10^3/[place] [address] [phone] Red Blood Count 4.64 10^6/uL 4.0-5.4 Hemoglobin 15.5 g/dL 12.0-16.0 Hematocrit 47 % 35-47 Mean Corpuscular Volume 101 fL High 80-97 Mean Corpuscular Hemoglobin 33 pg High 27-31 Mean Corpuscular HGB Conc 33 g/dL 31-36 Red Cell Distribution Width 13 % 10.5-15 Platelet Count 271 10^3/uL 150-450 Mean Platelet Volume 9 um3 7.4-10.4 Abs Neutrophils 10.0 10^3/uL High 1.5-7.7 Abs Lymphocytes 5.9 10^3/uL High 1.0-4.8 Abs Monocytes 1.3 10^3/uL High 0-0.8 Abs Eosinophils 0.3 10^3/uL 0-0.6 Abs Basophils 0.1 10^3/uL 0-0.2 Abs Nucleated RBC 0.02 10^3/uL Granulocyte % 56.7 % 38-83 Lymphocyte % 33.7 % 25-47 Monocyte % 7.2 % 1-9 Eosinophil % 1.8 % 0-6 Basophil % 0.6 % 0-2 Nucleated Red Blood Cells % 0.1 1 Because ethnic data is not always readily available, this report includes an eGFR for both -Americans and non- Americans. The National Kidney Disease Education Program (NKDEP) does not endorse the use of the MDRD equation for patients that are not between the ages of 18 and 70, are , have extremes of body size, muscle mass, or nutritional status, or are non- or non-. According to the National Kidney Foundation, irrespective of diagnosis, the stage of the disease is based on the level of kidney function: Stage Description GFR(mL/min/1.73 m(2)) 1 Kidney damage with normal or decreased GFR 90 2 Kidney damage with mild decrease in GFR 60-89 3 Moderate decrease in GFR 30-59 4 Severe decrease in GFR 15-29 5 Kidney failure <15 (or dialysis) 2 Because ethnic data is not always readily available, this report includes an eGFR for both -Americans and non- Americans. The National Kidney Disease Education Program (NKDEP) does not endorse the use of the MDRD equation for patients that are not between the ages of 18 and 70, are , have extremes of body size, muscle mass, or nutritional status, or are non- or non-. According to the National Kidney Foundation, irrespective of diagnosis, the stage of the disease is based on the level of kidney function: Stage Description GFR(mL/min/1.73 m(2)) 1 Kidney damage with normal or decreased GFR 90 2 Kidney damage with mild decrease in GFR 60-89 3 Moderate decrease in GFR 30-59 4 Severe decrease in GFR 15-29 5 Kidney failure <15 (or dialysis) 3 SEE RESULT BELOW Name: AZAR MORGAN : [address]: Julio Paniagua MD Acct: [id number] Unit: [id number] AGE: 72 Location: ENDO Re12/28/17 SEX: F Status: REG REF SPEC: [id number] SMITA: 12/28/[address] [facility] [address]: Julio Paniagua MD REQ: [id number] RECD: 12/28/17 STATUS: JASMINA FRY DR: Edilberto Flood MD _ SOURCE: GAS ANTRUM SPDESC: ORDERED: Clotest Procedure Result Reported Site Clotest Final 12/29/17721 ML Clotest Negative * ML - Main Lab . END OF REPORT DEPARTMENT OF PATHOLOGY, [address] [place] [address] Jerald Colon M.D. Director [facility] # [id number] 4 SEE RESULT BELOW Name: AZAR MORGAN : [address]: Julio Paniagua MD Acct: [id number] Unit: [id number] AGE: 72 Location: ENDO Re12/28/17 SEX: F Status: DEP REF SPEC: [id number] SMITA: 12/28/[address] [facility] [address]: Julio Paniagua MD REQ: [id number] RECD: 12/28/176850 STATUS: CARMEN FRY DR: Edilberto Flood MD _ ORDERED: LEVEL 4, IMMUNO-FIRST Addendum: An immunohistochemical stain for Helicobacter pylori-like organisms was performed with appropriate controls and is negative. Addendum Signed (signature on file) Jerald Colon MD 0957 FINAL DIAGNOSIS Stomach, antrum, biopsy: -- Gastric antral mucosa with mild patchy chronic inflammation. -- No active gastritis nor Helicobacter pylori-like organisms identified on H E microscopy. Comment: An immunohistochemical stain for Helicobacter pylori-like organisms is pending and will be reported in an addendum. CLINICAL HISTORY Nausea pressure, indigestion several times a week, every day, not all meals, no emesis POST-OPERATIVE DIAGNOSIS EGD: larynx ? normal; esophagus ? normal, esophagogastric 36 cm, small hiatal hernia (no erosions); stomach ? hiatal hernia, antral gastritis, small ulcers; duodenum ? erythema, bulb 2nd ? 4th normal; conclusions: hiatal hernia, gastritis, gastric ulcer GROSS DESCRIPTION The specimen is received in formalin labeled, Biopsy Gastric Antrum, and consists of three slater-pink irregular soft tissue fragments ranging from 0.2 x 0.1 x 0.1 cm to 0.6 x 0.2 by up to 0.2 cm which are submitted entirely in one cassette. CONTINUED ON NEXT PAGE DEPARTMENT OF PATHOLOGY, [address] [place] [address] Jerald Colon M.D. Director [facility] # [id number] RUN DATE: 12/30/17 [facility] LAB LIVE PAGE 2 Patient: AZAR MORGAN [id number] (Continued) GROSS DESCRIPTION (Continued) Signed by and Reported on: Jerald Colon MD 06/13 1510 END OF REPORT DEPARTMENT OF PATHOLOGY, [address] [place] [address] Jerald Colon M.D. Director [facility] # [id number] 5 Because ethnic data is not always readily available, this report includes an eGFR for both -Americans and non- Americans. The National Kidney Disease Education Program (NKDEP) does not endorse the use of the MDRD equation for patients that are not between the ages of 18 and 70, are , have extremes of body size, muscle mass, or nutritional status, or are non- or non-. According to the National Kidney Foundation, irrespective of diagnosis, the stage of the disease is based on the level of kidney function: Stage Description GFR(mL/min/1.73 m(2)) 1 Kidney damage with normal or decreased GFR 90 2 Kidney damage with mild decrease in GFR 60-89 3 Moderate decrease in GFR 30-59 4 Severe decrease in GFR 15-29 5 Kidney failure <15 (or dialysis) 6 Because ethnic data is not always readily available, this report includes an eGFR for both -Americans and non- Americans. The National Kidney Disease Education Program (NKDEP) does not endorse the use of the MDRD equation for patients that are not between the ages of 18 and 70, are , have extremes of body size, muscle mass, or nutritional status, or are non- or non-. According to the National Kidney Foundation, irrespective of diagnosis, the stage of the disease is based on the level of kidney function: Stage Description GFR(mL/min/1.73 m(2)) 1 Kidney damage with normal or decreased GFR 90 2 Kidney damage with mild decrease in GFR 60-89 3 Moderate decrease in GFR 30-59 4 Severe decrease in GFR 15-29 5 Kidney failure <15 (or dialysis) 7 Desirable: <150 Borderline High: 150-199 High: 200-499 Very High: >500 8 Desirable: <200 Borderline High: 200-239 High: >239 9 Low: <40 Desirable: 40-60 High: >60 10 Desirable: <100 Near Optimal: 100-129 Borderline High: 130-159 High: 160-189 Very High: >189 11 Because ethnic data is not always readily available, this report includes an eGFR for both -Americans and non- Americans. The National Kidney Disease Education Program (NKDEP) does not endorse the use of the MDRD equation for patients that are not between the ages of 18 and 70, are , have extremes of body size, muscle mass, or nutritional status, or are non- or non-. According to the National Kidney Foundation, irrespective of diagnosis, the stage of the disease is based on the level of kidney function: Stage Description GFR(mL/min/1.73 m(2)) 1 Kidney damage with normal or decreased GFR 90 2 Kidney damage with mild decrease in GFR 60-89 3 Moderate decrease in GFR 30-59 4 Severe decrease in GFR 15-29 5 Kidney failure <15 (or dialysis) 12 FASTING 12 HOUR 13 Because ethnic data is not always readily available, this report includes an eGFR for both -Americans and non- Americans. The National Kidney Disease Education Program (NKDEP) does not endorse the use of the MDRD equation for patients that are not between the ages of 18 and 70, are , have extremes of body size, muscle mass, or nutritional status, or are non- or non-. According to the National Kidney Foundation, irrespective of diagnosis, the stage of the disease is based on the level of kidney function: Stage Description GFR(mL/min/1.73 m(2)) 1 Kidney damage with normal or decreased GFR 90 2 Kidney damage with mild decrease in GFR 60-89 3 Moderate decrease in GFR 30-59 4 Severe decrease in GFR 15-29 5 Kidney failure <15 (or dialysis) 14 Desirable: <150 Borderline High: 150-199 High: 200-499 Very High: >500 15 Desirable: <200 Borderline High: 200-239 High: >239 16 Low: <40 Desirable: 40-60 High: >60 17 Desirable: <100 Near Optimal: 100-129 Borderline High: 130-159 High: 160-189 Very High: >189 18 FASTING 12 HOUR 19 Normal Range 180 to 914 Indeterminate Range 145 to 180 Deficient Range <145 20 RESULT: If CK result is <100, isoenzyme will not be performed. Test Performed by: [facility] - [address] [id number] 21 ADDITIONAL INFORMATION This test was developed and its performance characteristics determined by [facility] in a manner consistent with CLIA requirements. This test has not been cleared or approved by the U.S. Food and Drug Administration. Test Performed by: [facility] - [address] [address] 22 ADDITIONAL INFORMATION This test was developed and its performance characteristics determined by [facility] in a manner consistent with CLIA requirements. This test has not been cleared or approved by the U.S. Food and Drug Administration. Test Performed by: [facility] - [address] [address] 23 RESULT: No apparent monoclonal protein on serum electrophoresis. Test Performed by: [address] [address] 24 REFERENCE VALUE <4.0 (Negative) Test Performed by: [place] [id number] Negative serology. Celiac disease unlikely. However, approximately 10% of patients with celiac disease are seronegative. Also, patients who are already adhering to a gluten-free diet may be seronegative. If celiac disease is highly clinically suspected, consider HLA-DQ typing. Test Performed by: [facility] - [place] [id number] 26 RESULT: 01,02:01 REFERENCE VALUE Not Applicable 27 RESULT: 02:02,05:01 DQ Serologic Equivalent: 2,5 REFERENCE VALUE Not Applicable 28 While the patient lacks the gene pairs usually seen in celiac disease, there are rare exceptions in which celiac disease can occur with only one half of the gene pair (1% of all celiac) making celiac disease very unlikely. However, these genes can also be present in the normal population. ADDITIONAL INFORMATION Method: Molecular typing of HLA antigens performed using reverse SSOP and/or SSP methods, reported as serological equivalents and low to medium resolution molecular values. Performing Laboratory CLIA# [id number] Test Performed by: [address] [address] 29 Acute inflammation: >10.00 30 REFERENCE VALUE Not Applicable 31 HLA-B27 antigen was detected. Approximately 8% of the normal population carries the HLA-B27 antigen. HLA-B27 is present in approximately 89% of patients with ankylosing spondylitis, 79% of patients with Patricia's syndrome and 42% of patients with juvenile rheumatoid arthritis. However, lacking other data, it is not diagnostic for these disorders. This test does not differentiate B27 alleles. i.e. B*27:05, B*27:06, etc. ADDITIONAL INFORMATION Method: Flow Cytometry Performing Laboratory CLIA# [id number] Test Performed by: [place] [address] 32 Normal Range 180 to 914 Indeterminate Range 145 to 180 Deficient Range <145 33 Normal values may vary with age, season and geographic area. Titers above upper limits may be indicative of infection, however only a two dilution rise in titer is required to be considered significant. ASO titer will usually rise above upper limits within one week of exposure, increase to peak levels at 3-5 weeks and return to baseline level at 6-12 twelve months. 34 Test Performed by: [facility] [place] [address] 35 Test Performed by: [facility] [place] [address] 36 REFERENCE VALUE <=1.0 (Negative) 37 REFERENCE VALUE <20.0 (Negative) 38 Tests for antibodies to dsDNA and MORRIS antigens are not performed automatically unless the MARIBEL result is > or= 3.0 U. Studies performed at [facility] indicate that positive MARIBEL results <3.0 U are rarely accompanied by positive second order tests. Test Performed by: [place] [address] 39 UNILATERAL PRIMARY OSTEOARTHRITIS, RIGHT KNEE 40 Because ethnic data is not always readily available, this report includes an eGFR for both -Americans and non- Americans. The National Kidney Disease Education Program (NKDEP) does not endorse the use of the MDRD equation for patients that are not between the ages of 18 and 70, are , have extremes of body size, muscle mass, or nutritional status, or are non- or non-. According to the National Kidney Foundation, irrespective of diagnosis, the stage of the disease is based on the level of kidney function: Stage Description GFR(mL/min/1.73 m(2)) 1 Kidney damage with normal or decreased GFR 90 2 Kidney damage with mild decrease in GFR 60-89 3 Moderate decrease in GFR 30-59 4 Severe decrease in GFR 15-29 5 Kidney failure <15 (or dialysis) 41 AA 02/10 42 SEE RESULT BELOW Name: AZAR MORGAN : [address]: Carla Page MD Acct: [id number] Unit: [id number] AGE: 70 Location: [facility] Re02/05/16 SEX: F Status: REG REF SPEC: [id number] SMITA: 02/05/16-[address] [facility] [address]: Carla Page MD REQ: [id number] RECD: 02/05/165960 STATUS: COMP [facility] DR: Conner Belle MD _ SOURCE: URINE SPDESC: ORDERED: Urine Culture QUERIES: Urine Source: Clean Catch Procedure Result Reported Site Urine Culture Final 02/06/16- 1255 ML No Growth (<1,000 CFU/mL) * ML - [facility] ([facility]) . END OF REPORT * ML=Testing performed at Main Lab DEPARTMENT OF PATHOLOGY, [address] [place] [address] Jerald Colon M.D. Director [facility] # [id number] 43 Low risk: <1.00 Average risk: 1.00-3.00 High risk: >3.00 44 -- REFERENCE VALUE -- <20.0 (Negative) Test Performed by: [address] [address] Spin Tank Tender: Valdez Cody III, M.D. 45 Test Performed by: [address] [address] Spin Tank Tender: Valdez Cody III, M.D. 46 left knee synovial fluid 47 Red 48 Slide and differential reviewed. No bacteria, blasts or other malignant cells seen. Blood is present. Reviewed by Nancy Singer MD 49 left knee synovial fluid Synovial (Joint) Fluid 50 Test Performed by: [address] [address] Spin Tank Tender: Valdez Cody III, M.D. 51 -- REFERENCE VALUE -- <1.0 (Negative) 52 -- REFERENCE VALUE -- <1.0 (Negative) Test Performed by: [place] [address] Spin Tank Tender: Valdez Cody III, M.D. 53 Acute inflammation: >10.00 54 Because ethnic data is not always readily available, this report includes an eGFR for both -Americans and non- Americans. The National Kidney Disease Education Program (NKDEP) does not endorse the use of the MDRD equation for patients that are not between the ages of 18 and 70, are , have extremes of body size, muscle mass, or nutritional status, or are non- or non-. According to the National Kidney Foundation, irrespective of diagnosis, the stage of the disease is based on the level of kidney function: Stage Description GFR(mL/min/1.73 m(2)) 1 Kidney damage with normal or decreased GFR 90 2 Kidney damage with mild decrease in GFR 60-89 3 Moderate decrease in GFR 30-59 4 Severe decrease in GFR 15-29 5 Kidney failure <15 (or dialysis) 55 Because ethnic data is not always readily available, this report includes an eGFR for both -Americans and non- Americans. The National Kidney Disease Education Program (NKDEP) does not endorse the use of the MDRD equation for patients that are not between the ages of 18 and 70, are , have extremes of body size, muscle mass, or nutritional status, or are non- or non-. According to the National Kidney Foundation, irrespective of diagnosis, the stage of the disease is based on the level of kidney function: Stage Description GFR(mL/min/1.73 m(2)) 1 Kidney damage with normal or decreased GFR 90 2 Kidney damage with mild decrease in GFR 60-89 3 Moderate decrease in GFR 30-59 4 Severe decrease in GFR 15-29 5 Kidney failure <15 (or dialysis) 56 Reference Range and Interpretation: TnI (ng/mL) Interpretation Less Than 0.03 ng/mL Not supportive of diagnosis of LA 0.03 - 0.50 ng/mL Indeterminate: suggest serial studies if clinically indicated. Greater than 0.5 ng/mL Consistent with diagnosis of LA Procedures Date Code Description Status 04/06/2018 27663 Destruction Of Benign Lesions Any Method 1-14 lesions Completed 03/25/2018 78771 Ercp W/Sphincterotomy/Papillotomy Completed 03/10/2018 17142 Destruction Of Benign Lesions Any Method 1-14 lesions Completed 01/27/2018 51852 Destruction Of Benign Lesions Any Method 1-14 lesions Completed 12/29/2017 09135 Destruction Of Benign Lesions Any Method 1-14 lesions Completed 12/28/2017 02890 Endoscopy Upper GI Biopsy Completed 11/26/2017 14203550 Mammogram Completed 04/07/2017 [id number] Mammogram Completed 11/20/2016 106591582 Bone Mineral Density Test Completed 07/08/2016 54295 Inject/Drain Joint/Bursa Major W/O US Completed 02/11/2016 56308 TKR Total Knee Replacement Completed 02/11/2016 15183 TKR Total Knee Replacement Completed 11/22/2015 53833 Inject/Drain Joint/Bursa Major W/O US Completed 09/16/2015 52627 Inject/Drain Joint/Bursa Major W/O US Completed 07/05/2015 28069 Inject/Drain Joint/Bursa Major W/O US Completed 07/05/2015 77654 Injection Single Tendon Origin/Insertion Completed 02/27/2015 74418 Laparoscopy Cholecystectomy Completed 01/29/2015 12641793 Mammogram Completed 12/04/2014 20738 Needle Electromyography Each Extremity W/Related Completed Paraspinal Areas 12/04/2014 47699 Nerve Conduction 03-04 Studies Completed 10/16/2013 79562 EKG Tracing & Interpretation Completed 10/12/2013 [id number] Bone Mineral Density Test Completed 10/05/2013 68062 Inject/Drain Joint/Bursa Major W/O US Completed 06/23/2013 20718 Stress Test Completed 06/23/2013 09189 Myocardial Perfusion Imaging Tomographic (Spect) Completed Multiple Studies 06/19/2013 59597 ECHO Stress Test Incl Perf Contiuous ekg Monitoring Completed W/Phys Superv 05/31/2013 51138 EKG Tracing & Interpretation Completed 05/19/2013 51653 ECHO Transthorasic Realtime 2D W Doppler & Color Flow Completed Hosp 05/19/2013 12403 EKG, Interpretation Only Completed 03/29/2013 24257470 Colonoscopy Completed 09/09/2010 12345 EKG, Interpretation Only Completed 04/05/2008 57022761 Colonoscopy Completed 10/11/2007 23586 EKG, Interpretation Only Completed 01/20/2007 55997 Stress Test Completed 01/20/2007 12081 Stress Test Completed 01/20/2007 05549 ECHO/Stress Completed 08/29/2006 99185 Echocardiogram Completed 08/29/2006 79620 Echocardiogram Completed 08/29/2006 41376 Pulse Wave/Continuous-Interp.RPT Completed 08/29/2006 03840 Color Flow Doppler/Interp & Reprt Completed 08/29/2006 30864 Color Flow Doppler/Interp & Reprt Completed 03/02/2002 46571927 Colonoscopy Completed 10/18/1992 96144036 Colonoscopy Completed Encounters Type Date Location Provider Dx Diagnosis Office Visit 04/27/2018 [facility] Internal Leela Santamaria MD F33.1 Major depressive 1:40p Medicine - [address] disorder, recurrent, moderate Office Visit 03/26/2018 [facility] I10 Essential (primary) 8:15a Assoc,pc DIANNA Ibrahim hypertension Hospitalists E78.5 Hyperlipidemia, unspecified Office Visit 03/25/2018 8:15a [facility] Samanta Mccormack, I10 Essential ( primary) Assoc,pc N.P. hypertension Hospitalists G89.29 Other chronic pain F41.8 Other specified anxiety disorders Office Visit 03/16/2018 [facility] Internal Medicine Leela Santamaria F33.0 Major depressive 2:40p - [address] Romeo MD disorder, recurrent, mild Office Visit 02/24/2018 [facility] Gastroenterology Julio Esparza K25.9 Gastric ulcer, 8:30a MD Siva unsp as acute or chronic, w/o hemor or perf K44.9 Diaphragmatic hernia without obstruction or gangrene K80.80 Other cholelithiasis without obstruction R94.5 Abnormal results of liver function studies Office Visit 02/23/2018 11:00a [facility] Internal Edilberto Flood F33.0 Major depressive Medicine - M.D. disorder, Ryan recurrent, mild I10 Essential (primary) hypertension K21.9 Gastro-esophageal reflux disease without esophagitis Office Visit 02/09/2018 8:45a Orthopedic Services Carla Page, M25.561 Pain in right Of C.M.A. M.D. knee R53.1 Weakness Z96.651 Presence of right artificial knee joint Office Visit 12/29/2017 2:30p [facility] Dermatology Pablo Barajas, L82.1 Other seborrheic MD keratosis R20.2 Paresthesia of skin L29.8 Other pruritus B07.0 Plantar wart L53.8 Other specified erythematous conditions R20.8 Other disturbances of skin sensation Z78.9 Other specified health status Office Visit 12/21/2017 9:00a Orthopedic Jamie M76.62 [facility] Services Jihan Mauricio M.D. tendinitis, left C.M.A. leg M20.22 Hallux rigidus, left foot Office 12/06/2017 [facility] Julio Esparza K21.9 Gastro-esophageal Visit 2:30p MD Siva reflux disease without esophagitis R10.10 Upper abdominal pain, unspecified I48.0 Paroxysmal atrial fibrillation K80.20 Calculus of gallbladder w/o cholecystitis w/o obstruction R63.5 Abnormal weight gain Office Visit 11/17/2017 9:30a Orthopedic Carla Page, S83.411D Sprain of medial Services Jihan Modi collateral C.M.A. ligament of right knee, subs M25.461 Effusion, right knee Office Visit 10/25/2017 11:15a Orthopedic Services Carla Page, M25.561 Pain in right Of C.M.A. M.D. knee M25.461 Effusion, right knee Z96.651 Presence of right artificial knee joint S83.411A Sprain of medial collateral ligament of right knee, init Office Visit 2017 Orthopedic Carla M16.11 Unilateral primary 2:00p Services Jihan Page M.D. osteoarthritis, right C.M.A. hip M16.12 Unilateral primary osteoarthritis, left hip M17.12 Unilateral primary osteoarthritis, left knee M21.162 Varus deformity, not elsewhere classified, left knee Z96.651 Presence of right artificial knee joint M25.562 Pain in left knee M25.462 Effusion, left knee M25.551 Pain in right hip M25.552 Pain in left hip M70.62 Trochanteric bursitis, left hip M70.61 Trochanteric bursitis, right hip M25.561 Pain in right knee Office Visit 04/07/2017 2:00p [facility] Edilberto Pachikara, F33.0 Major depressive Medicine - M.D. disorder, Ryan recurrent, mild R63.4 Abnormal weight loss G47.00 Insomnia, unspecified Office Visit 02/24/2017 10:00a [facility] Newberry Pachikara, F33.0 Major depressive Medicine - M.D. disorder, Ryan recurrent, mild I10 Essential (primary) hypertension Z12.39 Encounter for oth screening for malignant neoplasm of breast Office Visit 01/13/2017 11:20a [facility] [place] Pachikara, F33.0 Major depressive Medicine - M.D. disorder, Ryan recurrent, mild F41.9 Anxiety disorder, unspecified Office Visit 12/16/2016 3:20p [facility] [place] Pachikara, I10 Essential Medicine - M.D. (primary) Ryan hypertension I48.0 Paroxysmal atrial fibrillation F33.0 Major depressive disorder, recurrent, mild F41.9 Anxiety disorder, unspecified M17.0 Bilateral primary osteoarthritis of knee F17.210 Nicotine dependence, cigarettes, uncomplicated Z72.0 Tobacco use Office Visit 11/20/2016 10:00a Rheumatology Pillo Esquivel, M79.7 Fibromyalgia Services Of [facility] M.Dalton M16.11 Unilateral primary osteoarthritis, right hip R94.5 Abnormal results of liver function studies M54.5 Low back pain M54.2 Cervicalgia R20.8 Other disturbances of skin sensation M06.4 Inflammatory polyarthropathy M81.0 Age-related osteoporosis w/o current pathological fracture L13.0 Dermatitis herpetiformis Office Visit 08/07/2016 9:15a Orthopedic Carla Page, Z96.651 Presence of right Services Of M.D. artificial knee C.M.A. joint M25.561 Pain in right knee Office Visit 07/08/2016 2:00p Orthopedic Ramiro Garzon, Z96.651 Presence of right Services Of M.D. artificial knee C.M.A. joint M17.11 Unilateral primary osteoarthritis, right knee Office Visit 07/03/2016 9:00a Orthopedic Services Carla Page, M25.561 Pain in right Of C.M.A. M.D. knee Z96.651 Presence of right artificial knee joint G90.521 Complex regional pain syndrome I of right lower limb Office Visit 06/15/2016 10:15a Orthopedic Services Carla Page, M25.561 Pain in right Of C.M.A. M.D. knee Z96.651 Presence of right artificial knee joint G90.521 Complex regional pain syndrome I of right lower limb Office Visit 05/13/2016 10:15a Orthopedic Carla Page Z47.1 Aftercare Services Of Rian following joint C.M.A. replacement surgery Z96.651 Presence of right artificial knee joint M25.561 Pain in right knee G90.521 Complex regional pain syndrome I of right lower limb Office Visit 02/14/2016 10:11a [facility] Zayda Carrion M79.7 Fibromyalgia Assoc,pc Dianne CELLULAR BIOLOGIST Hospitalists I50.32 Chronic diastolic (congestive) heart failure Z96.651 Presence of right artificial knee joint I10 Essential (primary) hypertension Office Visit 02/13/2016 10:11a [facility] Aspen Hagen M79.7 Fibromyalgia Assoc,pc CELLULAR BIOLOGIST Hospitalists I50.32 Chronic diastolic (congestive) heart failure Z96.651 Presence of right artificial knee joint I10 Essential (primary) hypertension Office Visit 02/12/2016 10:10a [facility] Aspen Hagen M79.7 Fibromyalgia Assoc,pc CELLULAR BIOLOGIST Hospitalists I50.32 Chronic diastolic (congestive) heart failure Z96.651 Presence of right artificial knee joint I10 Essential (primary) hypertension Office Visit 02/11/2016 10:09a [facility] Elizabeth Rutledge M79.7 Fibromyalgia Assoc,pc CELLULAR BIOLOGIST Hospitalists I50.32 Chronic diastolic (congestive) heart failure Z96.651 Presence of right artificial knee joint I10 Essential (primary) hypertension Office Visit 11/22/2015 3:00p Orthopedic Services Carla Page, M25.561 Pain in right Of C.M.A. M.D. knee M17.0 Bilateral primary osteoarthritis of knee M25.461 Effusion, right knee M17.11 Unilateral primary osteoarthritis, right knee Office Visit 10/11/2015 Orthopedic Carla M17.0 Bilateral primary 9:45a Services Of Rian Page osteoarthritis of C.M.A. knee Office Visit 09/16/2015 Orthopedic Carla M25.561 Pain in right knee 8:30a Services Of Rian Page C.M.A. M25.562 Pain in left knee M17.0 Bilateral primary osteoarthritis of knee M25.462 Effusion, left knee M25.461 Effusion, right knee M17.11 Unilateral primary osteoarthritis, right knee M17.12 Unilateral primary osteoarthritis, left knee Office Visit 02/07/2015 3:15p Vita Jacobsen R20.2 Paresthesia of Services Of Romaine Frias M.D. skin M25.552 Pain in left hip Office Visit 01/11/2015 9:45a Orthopedic Naomy Rivero.32 Iliotibial band Services Of M.D. syndrome, left C.M.A. leg M70.62 Trochanteric bursitis, left hip Office Visit 12/19/2014 2:30p Orthopedic Fatuma Rivero Iliotibial band Services Of M.D. syndrome, left C.M.A. leg Office Visit 10/02/2014 10:00a Vita Jacobsen 956.3 Injury Services Of Romaine Frias M.D. Peripheral Nerve Peroneal 724.4 Neuritis Or Radiculitis Thoracic Or Lumbosacral Unspec 782.0 Skin Sensation Disturbance Office Visit 11/22/2013 Rheumatology [place] 712.16 Chondrocalcinosis 3:20p Services Of Romaine Alexander M.D. Dicalcium Phosphate Crystal Lower Leg 727.00 Synovitis & Tenosynovitis Unspec 727.51 Cyst Synovial Popliteal Space Office Visit 11/10/2013 11:00a Rheumatology [place] Alexander 727.51 Cyst Synovial Services Of Romaine Modi Popliteal Space 712.16 Chondrocalcinosis Dicalcium Phosphate Crystal Lower Leg Office Visit 11/06/2013 2:00p Rheumatology [place] Alexander 727.51 Cyst Synovial Services Of Romaine Modi Popliteal Space 712.16 Chondrocalcinosis Dicalcium Phosphate Crystal Lower Leg Office Visit 10/16/2013 [facility] Joshua Bryant 427.31 Atrial Fibrillation 9:00a Of Romaine Zavala M.D., FACC, FASNC Office Visit 10/09/2013 Rheumatology [place] Alexander, 715.96 Osteoarthrosis 10:40a Services Of Romaine Modi Unspec Genlzd Or Localized Lower Leg 727.51 Cyst Synovial Popliteal Space Office Visit 10/05/2013 8:00a Rheumatology [place] Alexander, 729.1 Myalgia & Services Of Romaine Modi Myositis Unspec 727.00 Synovitis & Tenosynovitis Unspec Office Visit 09/29/2013 11:26a [place] [facility] Ingram 427.31 Atrial Assoc,Philippe Marquez Hospitalists Rian 401.9 Hypertension Unspec 276.8 Hypopotassemia 275.2 Metabolic Disorder Magnesium Office Visit 09/28/2013 11:25a [place] Mer[facility] Ingram 427.31 Atrial Assoc,Philippe Marquez Hospitalists Rian 401.9 Hypertension Unspec 276.8 Hypopotassemia 275.2 Metabolic Disorder Magnesium Office Visit 09/27/2013 11:25a [place] Mer[facility]ez Ingram 427.31 Atrial Assoc,valentin Ibrahim Fibrillation Hospitalists MAmber 401.9 Hypertension Unspec 276.8 Hypopotassemia 275.2 Metabolic Disorder Magnesium Office Visit 09/08/2013 Rheumatology [place] Alexander, 729.1 Myalgia & Myositis 8:00a Services Of Romaine Modi Unspec Office Visit 08/25/2013 [facility] Joshua Bryant 427.31 Atrial 11:30a Rian Zavala, Fibrillation FAC, FASPR Office Visit 05/31/2013 [facility] Joshua Bryant 427.31 Atrial 10:15a Rian Zavala, Fibrillation FACCari, FASPR Office Visit 05/19/2013 [facility] Casey Barillas, 427.31 Atrial 1:19p Assoc,valentin Modi Fibrillation Hospitalists 401.9 Hypertension Unspec 276.8 Hypopotassemia Office Visit 05/18/2013 [facility] Annia Myers 427.31 Atrial 1:18p Assoc,pc Foster, N.P. Fibrillation Hospitalists 401.9 Hypertension Unspec 276.8 Hypopotassemia Plan of Treatment Future Appointment(s):06/08/2018 2:20 pm - Leela Santamaria MD at [facility] Internal Medicine - [address]05/09/2018 - Julio Paniagua MDK80.50 Calculus of bile duct w/o cholangitis or cholecyst w/o obstR94.5 Abnormal results of liver function ncyrseoD39.010 Personal history of colonic pbjebwO28.00 Constipation, unspecified
--- OUTSIDE RECORDS SUMMARY | 2018-06-05 14:37 | XMS REPORT | Continuity of Care Document ---
:1945 External Reference #:[id number] Author Name Karyna Hunt Care Team Providers Name Role Phone Edilberto Flood MD Primary Care Physician Unavailable Payers Date Identification Numbers Payment Provider Subscriber Policy Number: [id number] Medicare Azar Morgan PayID: [id number] [address] [place] [address] Expires: 2017 Policy Number: [id number] Medicare Azar Morgan PayID: [id number] [address] [place] [address] Policy Number: [id number] [facility] Dakota Almonte PayID: [id number] [address] [place] [address] Advance Directives Description No Information Available Problems Date Description Provider Status Onset: 05/31/2013 Atrial fibrillation Joshua Zavala M.D., Active 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 before dental procedure. 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 2018 Amoxicillin 01/06/ Hx Capsules 500mg 4caps take 4 Carla 2016 - pills, 2 g Camilo, 07/25/ 1 hour M.D. 2018 before dental or gi procedure Alprazolam 01/01/ Hx Tablets 1mg 30tabs take 1 Edilberto 2016 - tablet Pachikara 01/13/ twice , M.D. 2016 daily as needed Alprazolam 12/16/ Hx Tablets 1mg 30tabs 1 tablet F41.9 [place] 2017 - by mouth Pachikara 12/16/ 12h as , M.D. 2017 needed Escitalopram 12/16/ Hx Tablets 10mg 30tabs Take One F41.9 Edilberto Oxalate 2016 - Tablet By Pachika 02/24/ Mouth , M.D. 2016 Every Day Gabapentin 11/20/ Hx Capsules 100mg 60caps (Not M79.7 Pillo 2016 - Taking)herbert Sierra, 02/24/ e 1 M.D. 2017 capsule by mouth at night for 1 week then 1 by mouth twice daily ongoing Oxycodone-Aceta 07/03/ Hx Tablets 10-325mg 60tabs take 1 M25.561 Carla minophen 2016 - every 4 - Camilo, 11/20/ hours as M.D. 2016 needed for pain. TENS Unit 06/29/ Hx 1units Use twice Carla2016 - daily as Acmilo, 10/05/ needed for M.D. 2017 pain. Lyrica [...] twice a M.D. 2016 day as needed [place] 01/01/ Hx Tablets 5-325mg 45tabs one tab by Carla 2015 - mouth Camilo, 02/03/ every 4-6 M.D. 2016 hours as needed pain Hydrocodone-Flako 07/04/ Hx Tablets 5-325mg 60tabs 1 - 2 tabs M25.552 Carla taminophen 2015 - by mouth Camilo, 03/04/ every 4-6 M.D. 2017 hours as needed pain do not fill until 04/24/16 Norvasc 02/07/ Hx Tablets 5mg 1 by mouth Madeline Jacobsen 2014 - every day Altagracia, M.D. 2015 Hydrocodone-Flako 12/04/ Hx Tablets 5-325mg 60tabs 1 - 2 tabs M25.552 Mando grace 2014 - by mouth Allan, 06/30/ every 6 M.D. 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 M.D. 2015 Colcrys 11/22/ Hx Tablets 0.6mg 30tabs 1 by mouth 727.51 Irving 2013 - every Alexander, 10/01/ other day M.D. 2014 Prednisone 11/06/ Hx Tablets 20mg 30tabs 1 po qam 727.51 Irving 2013 - Alexander, 11/22/ M.D. 2013 Vicodin 11/06/ Hx Tablets 5-300mg 30tabs 1 by mouth 727.51 Irving 2013 - every 8 h, Alexander, 11/28/ as needed M.D. 2013 pain. may replace with vicodin 5-325 Propafenone HCL 10/16/ Hx Caps ER 225mg 180cap 1 by mouth 427.31 Joshua ER 2013 - 12HR s every Bryant 10/01/ , 2014 hours M.D., VERONIQUE PRYOR Tramadol HCL 10/05/ Hx Tablets 50mg 60tabs as needed Irving 2013 - Benjamin, 10/01/ M.D. 2014 Meloxicam 09/14/ Hx Tablets 7.5mg 60tabs 1 po bid Irving 2013 - Alexander, 10/05/ M.D. 2013 Potassium 06/19/ Hx Tablets ER 20Meq 1 tab po Joshua Chloride Leah 2013 - bid Bryant ER 10/01/ Zavala, 2014 M.Charlie., VERONIQUE PRYOR Aspirin Ec Low 06/19/ Hx Tablets DR 81mg 90tabs 1 by mouth Joshua Dose 2013 - every day Bryant 10/09/ Zavala, 2013 Rian, VERONIQUE PRYOR Magnesium Oxide 06/19/ Hx Tablets 400mg 30tabs 2 by mouth Joshua 2013 - bid Bryant , 2014 M.Dalton, VERONIQUE PRYOR Atenolol-Chlort 06/19/ Hx Tablets 50-25mg 1 tab po Joshua halidone 2013 - qd Bryant 10/05/ Zavala, 2013 MAmber, VERONIQUE PRYOR Amlodipine 06/19/ Hx Tablets 5mg 90tabs 1 by mouth Joshua Besylate 2013 - every day Bryant 10/01/ Azvala, 2014 Angelic., VERONIQUE PRYOR Acetaminophen 00/ Hx Tablets ER 650mg 120tab 1 tab po Unknown ER 0000 - s q4h prn 07/06/ pain 2015 Aspirin 00/00/ Hx Tablets 325mg 1 po qd Unknown 0000 - 2013 Norvasc 00/00/ Hx Unknown 0000 - 2013 Atenolol 00/00/ Hx 1 tab po Unknown 0000 - every 2013 Estratest 00/00/ Hx 1 tab po Unknown 0000 - qd 2013 Prozac /00/ Hx Capsules 20mg 1 po qd Unknown 0000 - 2015 Prednisone 00/00/ Hx Tablets 10mg 1 by mouth Unknown 0000 - every day 2013 Coumadin /00/ Hx Tablets 5mg 90days as Unknown 0000 - up directed 2014 Toprol XL 0000/ Hx Tablets ER 25mg 90tabs 1 by mouth Joshua 0000 - 24HR every day Manny Lucas 2015 Rian, [facility] Norvasc 00/00/ Hx Tablets 10mg 1 by mouth Unknown 0000 - every day 2014 Lisinopril 00/00/ Hx Tablets 20mg once daily Chante, 0000 - Traian Mar, 2016 Alprazolam 00/00/ Hx Tablets 0.5mg 1 tab po Yoshi, 0000 - as needed Conner, 02/03/ 2016 Esterified 00/00/ Hx Tablets 1.25-2.5mg once daily Unknown Estrogens/Methy 0000 - ltestosterone 2014 Restasis 00/ Hx Emulsion 0.05% one drop Unknown 0000 - to each 06/30/ twice 2016 daily PT Wearing / Hx Unknown Heart Mon. For 0000 - A Week 2015 Cymbalta 00/ Hx Caps DR 30mg 1 by mouth Unknown 0000 - Part every day 2016 Wellbutrin SR /00/ Hx Tablets ER 100mg bid Unknown 0000 - 12HR 2016 Lidocaine /00/ Hx Ointment 5% prn Unknown - 2016 Colace /00/ Hx Capsules 100mg bid Unknown - 2016 Aspirin Ec Low 00/00/ Hx Tablets DR 81mg 1 by mouth Unknown Dose 0000 - every day 2017 Alprazolam 00/00/ Hx Tablets 0.5mg bid Unknown - 2016 Lyrica / Hx Capsules 100mg daily Unknown - 2016 Lyrica / Hx Capsules 50mg daily Unknown - 2016 Coumadin / Hx Tablets 1mg [...] 2013 Rian Alexander Inj, 06/23/ Administered Injection Joshua Bryant Regadenoson, 0.1 2013 Zavala, MG M.D., FACC, FASNC Technetium TC 06/23/ Administered Injection Joshua Bryant 99M Tetrofosmin, 2013 Lucas, Per Unit Dose Up M.D., To 40 FACC, Millicuries FASNC Immunizations CPT Code Status Date Vaccine Lot # [id number] Given 01/31/2018 Influenza Virus Vaccine, Quadrivalent, Split, [...] Date Facility Test Result H/L Range Note Inr/Protime 02/24/2018 [facility] Inr 0.83 N 0.77-1.02 [address] [place] [address] [phone] Laboratory test 02/24/2018 [facility] Amylase 61 U/L N 29-103 finding [address] [place] [address] [phone] CBC Auto Diff 02/24/2018 [facility] White Blood 13.1 10^3/uL High 3.5-10.[address] [place] [address] [phone] Red Blood Count 4.49 10^6/uL N 4.00-5.40 [...] % Nucleated Red Blood Cells % 0 Comp Metabolic Panel 02/24/2018 [facility] Sodium 140 mmol/L N 135-[address] [place] [address] [phone] Potassium 4.6 mmol/L N 3.5-5.0 Chloride 102 [...] Egfr Non- 82.5 >60 Egfr 99.8 >60 1 Laboratory test 02/24/2018 [facility] Lipase 41 U/L N 11.0- 82.[address] [place] [address] [phone] Laboratory test 12/28/2017 [facility] Clotest SEE RESULT [address] [place] [address] [phone] Laboratory test 12/28/2017 [facility] Surgical SEE RESULT [address] [place] [place] [address] Order [phone] Comp Metabolic 12/24/2017 [facility] Sodium 139 mmol/L N 135- 145 Panel [address] [place] [address] [phone] Potassium 4.5 mmol/L N 3.5-5.0 Chloride 104 [...] Egfr Non- 83.9 >60 Egfr 101.5 >60 4 Laboratory test 12/24/2017 [facility] C Reactive 1.04 mg/L N < 8.[address] [facility] ([place], [place]) Protein [place], [place] [address] [phone] TSH (Thyroid Stim Horm) 1.55 mcIU/mL N 0.34-5.60 CBC No Diff 11/23/2017 [facility] White Blood 12.1 10^3/uL High 3.5-10.[address] [place] [address] [phone] Red Blood Count 4.11 10^6/uL N 4.00-5.40 [...] um3 N 7.4-10.4 Comp Metabolic Panel 11/23/2017 [facility] Sodium 142 mmol/L N 135-145 [address] [place] [address] [phone] Potassium 4.5 mmol/L N 3.5-5.0 Chloride 104 [...] Egfr Non- 75.0 >60 Egfr 90.8 >60 5 Lipid Profile 04/08/2017 [facility] Triglycerides 223 mg/dL 6 (Trig/Chol/HDL) [address] [place] [address] [phone] Cholesterol 175 mg/dL 7 HDL Cholesterol 45.0 mg/dL 8 LDL Cholesterol 85 mg/dL 9 Comp Metabolic Panel 04/08/2017 [facility] Sodium 139 mmol/L N 133-145 [address] [place] [address] [phone] Potassium 4.1 mmol/L N 3.5-5.0 Chloride 103 [...] Egfr Non- 90.1 >60 Egfr 115.9 >60 10 Laboratory test 04/08/2017 [facility] TSH (Thyroid 2.16 N 0.34 -5.60 [address] Stim Horm) mcIU/[place] [address] [phone] CBC Auto Diff 04/08/2017 [facility] White Blood 11.0 High 3.5- 10.[address] Count 10^3/[place] [address] [phone] Red Blood Count 4.51 10^6/uL N 4.0-5.4 [...] Blood Cells % 0 Liver Function 04/08/2017 [facility] Total Protein 5.9 g/dL Low 6.4-8.[address] [place] [address] [phone] Albumin 3.7 g/dL N 3.2-5.2 Globulin 2.2 g/dL N 2-4 Albumin/Globulin Ratio 1.7 N 1-3 Total Bilirubin 0.30 mg/dL N 0.2-1.0 Direct Bilirubin 0.10 mg/dL N 0.03-0.18 Indirect Bilirubin 0.2 mg/dL Low 0.3-1.0 Alkaline Phosphatase 151 U/L High 34-104 Alt 45 U/L N 7-52 Ast 61 U/L High 13-39 Laboratory test finding 04/08/2017 [facility] Amylase 92 U/L N 29-103 [address] [place] [address] [phone] Lipase 131 U/L High 11.0-82.0 Comp Metabolic Panel 04/08/2017 [facility] Sodium 139 mmol/L N 133-145 [address] [place] [address] [phone] Potassium 4.1 mmol/L N 3.5-5.0 Chloride 103 [...] Egfr Non- 90.1 >60 Egfr 115.9 >60 12 Lipid Profile 04/08/2017 [facility] Triglycerides 223 mg/dL 13 (Trig/Chol/HDL) [address] [place] [address] [phone] Cholesterol 175 mg/dL 14 HDL Cholesterol 45.0 mg/dL 15 LDL Cholesterol 85 mg/dL 16 Laboratory test 04/08/2017 [facility] TSH (Thyroid 2.16 mcIU/mL N 0.34-5.[address] Stim Horm) [place] [address] [phone] Ferritin 36.8 ng/mL N 11-307 Vitamin B12 921 pg/mL High 180-914 18 Laboratory 11/20/2016 [facility] TSH 1.71 N 0.34-5.60 test finding 101 (Thyroid mcIU/[place] [address] Stim Horm) [phone] CK Isoenzymes 11/20/2016 [facility] Creatine 32 U/L Abnormal 38 - 176 [address] [place], [place] [address] [phone] CK Isoenzyme Elec, Specimen See Comment N 19 Iron & Iron Binding 11/20/2016 [facility] Iron 145 g/dL N 50 -[address] [place], [place] [id number] [phone] Unsaturated Iron Binding 195 g/dL N Total Iron Binding Capacity 340 g/dL N 250-450 % Iron Saturation 43 % N 15-55 Laboratory 11/20/2016 [facility] Smooth Negative N Negative 20 test finding [address] [place] [address] Antibody [phone] Hepatitis 11/20/2016 [facility] Hepatitis C Nonreactive N Nonreactive Acute Panel 101 Antibody [place], [place] [id number] [phone] Hepatitis A AB Igm Nonreactive N Nonreactive Hepatitis B Core AB Igm Nonreactive N Nonreactive Hepatitis B Surface Ag Nonreactive N Nonreactive Vitamin D 1,25 11/20/2016 [facility] Vitamin D 29.1 ng/mL Low 30-50 And Vitamin D,2 101 Total 25(Oh) [place], [place] [address] [phone] Vitamin D, 1,25 Dihydroxy 49 pg/mL N 18-78 21 Protein 11/20/2016 [facility] Total 6.6 g/dL N 6.3 - Electrophoresis 101 Protein(Pep) 7.9 [place], [place] 3329368 [phone] Albumin 3.3 g/dL Abnormal 3.4-4.7 Alpha-1 Globulin 0.3 g/dL N 0.1-0.3 Alpha-2 Globulin 1.2 g/dL Abnormal 0.6-1.0 Beta Globulin 1.0 g/dL N 0.7-1.2 Gamma Globulin 0.8 g/dL N 0.6-1.6 Albumin/Globulin Ratio 1.01 N Impression See Comment N 22 Celiac Panel 11/20/2016 [facility] Tissue Transglutaminase <1.2 U/mL N [address] [place] [address] [phone] Immunoglobulin A 152 mg/dL N 61 - 356 Celiac Interpretation See Comment N 24 Celiac Hla DQ1/DQ2 11/20/2016 [facility] Hla-Dqa1 SEE BELOW N [address] [place] [address] [phone] Hla-DQB1 SEE BELOW N 26 Celiac Gene Pairs Present? Equivocal N Celiac Gene Interpretation See Comment N 27 Laboratory test 11/20/2016 [facility] Erythrocyte Sed 26 mm/Hr N 0-[address] [place] [address] [phone] C Reactive Protein 10.40 mg/L High < 5.00 28 Hla B27 11/20/2016 [facility] Hla B27 Positive N [address] [place] [address] [phone] Hla B27 Interp See Comment N 30 Vitamin B12 And 11/20/2016 [facility] Vitamin B12 561 pg/mL N 180-914 31 Folate Serum [address] [place] [address] [phone] Folic Acid (Folate) 19.06 ng/mL N >3.99 Laboratory 11/20/2016 [facility] Aso Negative N <200 32 test finding [address] (Antistreptolysin O) IU/mL Iu/[place] [address] Titer [phone] Angiotensin Converting Enzyme 39 U/L N 8 - 53 33 Rheumatoid Factor <15 IU/mL N <15 34 Connective Tissue 11/20/2016 [facility] Anti-Nuclear 0.3 U N [address] [place] [address] [phone] Cyclic Citrullinated Peptide <15.6 U N 36 Interpretation See Comment N 37 Urine Culture And 02/05/2016 [facility] Urine SEE RESULT 38 , [address] [place] [address] [phone] Type & Screen 02/05/2016 [facility] Patient O Positive [address] [place] [address] [phone] Antibody Screen NEGATIVE N Comp Metabolic Panel 02/05/2016 [facility] Sodium 139 mmol/L N 133-[address] [place] [address] [phone] Potassium 4.2 mmol/L N 3.5-5.0 Chloride 103 [...] Egfr 110.3 N >60 40 Inr/Protime 02/05/2016 [facility] Inr 0.89 N 0.89-1.[address] [place], [place] [address] [phone] Laboratory test 02/05/2016 [facility] Partial 33.5 N 26.0- 36.[address] [place] [address] Time PTT [phone] CBC No Diff 02/05/2016 [facility] White Blood 11.3 High 3.5- 10.[address] Count 10^3/[place] [address] [phone] Red Blood Count 4.13 10^6/uL N 4.0-5.4 Hemoglobin 14.0 g/dL N 12.0-16.0 Hematocrit 42 % N 35-47 Mean Corpuscular Volume 102 fL High 80-97 Mean Corpuscular Hemoglobin 34 pg High 27-31 Mean Corpuscular HGB Conc 33 g/dL N 31-36 Red Cell Distribution Width 13 % N 10.5-15 Platelet Count 246 10^3/uL N 150-450 Mean Platelet Volume 9 um3 N 7.4-10.4 Urinalysis Profile 02/05/2016 [facility] Urine Color Yellow N [address] [place] [address] [phone] Urine Appearance Clear N Urine Specific [place] 1.016 N 1.010-1.030 Urine pH 5.0 N [...] Urine Squamous Epithelial Cell Present Abnormal Absent Laboratory test 10/12/2013 [facility] CRP High 3.55 mg/L N [address] [place] [address] [phone] Cyclic Citrullinated Pept IgG <15.6 U N 43 Erythrocyte Sed Rate 16 mm/Hr N 0-40 Rheumatoid Factor <15 IU/mL N <15 44 Body Fluid 10/05/2013 [facility] Body Fluid Synovial Fluid N 45 Cell Count [address] [place] [address] [phone] Body Fluid Appearance Bloody N Body Fluid Color (SEE NOTE) N 46 Body Fluid Volume 0.5 mL N Body Fluid WBC 1080 N Body Fluid RBC 119234 N Body Fluid Polys 55 N Body Fluid Lymph 28 N Body Fluid Eosinophil 5 N Body Fluid Basophils 1 N Body Fluid Other Cells 11 N Body Fluid Total Cells Counted 100 N Fluid Reviewed By MD (SEE NOTE) N 47 Laboratory test 10/05/2013 [facility] Fluid Crystals None Seen N [address] [place] [address] [phone] Laboratory test 09/14/2013 Erythrocyte Sed 15 mm/Hr N 0-40 finding Rate TSH (Thyroid Stimulating Horm) 2.56 IU/mL N 0.34-5.60 Maribel (Anti-Nuclear AB) Screen Negative N Negative Rheumatoid Factor <15 IU/mL N <15 49 Ssa/SSB Abs Igg 09/14/2013 SS-A/Ro Antibody <0.2 U N 50 SS-B/La Antibody <0.2 U N 51 Laboratory test 09/14/2013 C Reactive 4.34 mg/L N < 5.00 52 finding Protein Basic Metabolic 06/09/2013 [facility] Sodium 136 mmol/L 133- [address] [place] [address] [phone] Potassium 3.2 mmol/L Low 3.7-5.6 Chloride 97 mmol/L Low 101-111 Co2 Carbon Dioxide 31 mmol/L 22-32 Anion Gap 8 mmol/L 2-11 Glucose 109 mg/dL High 70-100 Blood Urea Nitrogen 15 mg/dL 6-24 Creatinine 0.68 mg/dL 0.51-0.95 BUN/Creatinine Ratio 22.1 High 8-20 Calcium 9.9 mg/dL 8.6-10.3 Egfr Non- 86.6 >60 Egfr 111.3 >60 53 Laboratory test 06/09/2013 [facility] Magnesium 1.6 mg/dL Low 1.9-2.[address] [place] [address] [phone] CBC Auto Diff 05/18/2013 [facility] White Blood 17.6 High 4.8- 10.[address] Count 10^3/[place] [address] [phone] Red Blood Count 4.64 10^6/uL 4.0-5.4 Hemoglobin [...] 0-2 Nucleated Red Blood Cells % 0.1 Laboratory test 05/18/2013 [facility] Troponin I 0.01 ng/mL < 0.03 54 finding [address] [place] [address] [phone] TSH (Thyroid Stimulating Horm) 2.36 IU/mL 0.34-5.60 CKMB 05/18/2013 [facility] CKMB ng/mL 2.9 ng/mL 0.6-6.3 [address] [place] [address] [phone] Inr/Protime 05/18/2013 [facility] Inr 0.85 0.85-1.06 [address] [place] [address] [phone] Laboratory test 05/18/2013 [facility] Magnesium 1.8 mg/dL Low 1.9-2.7 finding [address] [place] [address] [phone] Creatine Kinase 62 U/L 10-223 Comp Metabolic Panel 05/18/2013 [facility] Sodium 140 mmol/L 133-145 [address] [place] [address] [phone] Potassium 3.3 mmol/L Low 3.7-5.6 Chloride 105 [...] Egfr 99.4 >60 55 Laboratory test 05/18/2013 [facility] Activated 31.6 seconds 24.0-36.[address] [place] [address] Thrombo Time [phone] 1 Because ethnic data is not always [...] 5 Kidney failure <15 (or dialysis) 2 SEE RESULT BELOW Name: AZAR MORGAN : [address]: Julio Paniagua MD Acct: [id number] Unit: [id number] AGE: 72 Location: ENDO Re12/28/17 SEX: F Status: REG REF SPEC: [id number] SMITA: 12/28/[address] [facility] [address]: Julio Paniagua MD REQ: [id number] RECD: 12/28/17 STATUS: JASMINA FRY DR: Edilberto Flood MD _ SOURCE: GAS ANTRUM SPDESC: ORDERED: Clotest Procedure Result Reported Site Clotest Final 12/29/17721 ML Clotest Negative * ML - Main Lab . END OF REPORT DEPARTMENT OF PATHOLOGY, [address] [place] [address] Jerald Colon M.D. Director [facility] # [id number] 3 SEE RESULT BELOW Name: AZAR MORGAN : [address]: Julio Paniagua MD Acct: [id number] Unit: [id number] AGE: 72 Location: ENDO Re12/28/17 SEX: F Status: DEP REF SPEC: [id number] SMITA: 12/28/[address] [facility] [address]: Julio Paniagua MD REQ: [id number] RECD: 12/28/17 STATUS: CARMEN FRY DR: Edilberto Flood MD [...] CONTINUED ON NEXT PAGE DEPARTMENT OF PATHOLOGY, [address] [place] [address] Jerald Colon M.D. Director [facility] # [id number] RUN DATE: 12/30/17 [facility] LAB LIVE PAGE 2 Patient: AZAR MORGAN [id number] (Continued) GROSS DESCRIPTION (Continued) Signed by and Reported on: Jerald Colon MD 06/13 1510 END OF REPORT DEPARTMENT OF PATHOLOGY, [address] [place] [address] Jerald Colon M.D. Director [facility] # [id number] 4 Because ethnic data is not always readily [...] 15-29 5 Kidney failure <15 (or dialysis) 5 Because ethnic data is not always [...] 5 Kidney failure <15 (or dialysis) 6 Desirable: <150 Borderline High: 150-199 High: 200-499 Very High: >500 7 Desirable: <200 Borderline High: 200-239 High: >239 8 Low: <40 Desirable: 40-60 High: >60 9 Desirable: <100 Near Optimal: 100-129 Borderline High: 130-159 High: 160-189 Very High: >189 10 Because ethnic data is not always readily [...] 15-29 5 Kidney failure <15 (or dialysis) 11 FASTING 12 HOUR 12 Because ethnic data is not always readily [...] 15-29 5 Kidney failure <15 (or dialysis) 13 Desirable: <150 Borderline High: 150-199 High: 200-499 Very High: >500 14 Desirable: <200 Borderline High: 200-239 High: >239 15 Low: <40 Desirable: 40-60 High: >60 16 Desirable: <100 Near Optimal: 100-129 Borderline High: 130-159 High: 160-189 Very High: >189 17 FASTING 12 HOUR 18 Normal Range 180 to 914 Indeterminate Range 145 to 180 Deficient Range <145 19 RESULT: If CK result is <100, isoenzyme will not be performed. Test Performed by: [facility] - [address] [address] ADDITIONAL INFORMATION This test was developed and its performance characteristics determined by [facility] in a manner consistent with CLIA requirements. This test has not been cleared or approved by the U.S. Food and Drug Administration. Test Performed by: [facility] - [address] [address] 21 ADDITIONAL INFORMATION This test was developed and its performance characteristics determined by [facility] in a manner consistent with CLIA requirements. This test has not been cleared or approved by the U.S. Food and Drug Administration. Test Performed by: [facility] - [address] [address] 22 RESULT: No apparent monoclonal protein on serum electrophoresis. Test Performed by: [facility] - [address] [address] 23 REFERENCE VALUE <4.0 (Negative) Test Performed by: [address] [address] 24 Negative serology. Celiac disease unlikely. However, approximately 10% of patients with celiac disease are seronegative. Also, patients who are already adhering to a gluten-free diet may be seronegative. If celiac disease is highly clinically suspected, consider HLA-DQ typing. Test Performed by: [facility] - [address] [address] 25 RESULT: 01,02:01 REFERENCE VALUE Not Applicable 26 RESULT: 02:02,05:01 DQ Serologic Equivalent: 2,5 REFERENCE VALUE Not Applicable 27 While the patient lacks the gene pairs [...] medium resolution molecular values. Performing Laboratory CLIA# [id number] Test Performed by: [facility] - [address] [address] 28 Acute inflammation: >10.00 29 REFERENCE VALUE Not Applicable 30 HLA-B27 antigen was detected. Approximately 8% of [...] INFORMATION Method: Flow Cytometry Performing Laboratory CLIA# [id number] Test Performed by: [place] [address] 31 Normal Range 180 to 914 Indeterminate Range 145 to 180 Deficient Range <145 32 Normal values may vary with age, season and geographic area. Titers above upper limits may be indicative of infection, however only a two dilution rise in titer is required to be considered significant. ASO titer will usually rise above upper limits within one week of exposure, increase to peak levels at 3-5 weeks and return to baseline level at 6-12 twelve months. 33 Test Performed by: [place] [address] 34 Test Performed by: [place] [address] 35 REFERENCE VALUE <=1.0 (Negative) 36 REFERENCE VALUE <20.0 (Negative) 37 Tests for antibodies to dsDNA and MORRIS antigens are not performed automatically unless the MARIBEL result is > or= 3.0 U. Studies performed at [facility] indicate that positive MARIBEL results <3.0 U are rarely accompanied by positive second order tests. Test Performed by: [place] [address] 38 UNILATERAL PRIMARY OSTEOARTHRITIS, RIGHT KNEE 39 SEE RESULT BELOW Name: AZAR MORGAN : [address]: Carla Page MD Acct: [id number] Unit: [id number] AGE: 70 Location: PAT Re02/05/16 SEX: F Status: REG REF SPEC: [id number] SMITA: 02/05/[address] [facility] [address]: Carla Page MD REQ: [id number] RECD: 02/05/16 STATUS: JASMINA FRY DR: Conner Belle MD _ SOURCE: URINE SPDESC: ORDERED: Urine Culture QUERIES: Urine Source: Clean Catch Procedure Result Reported Site Urine Culture Final 02/06/16- 1255 ML No Growth (<1,000 CFU/mL) * ML - MAIN LAB ([facility]) . END OF REPORT * ML=Testing performed at Main Lab DEPARTMENT OF PATHOLOGY, [address] [place] [address] Jerald Colon M.D. Director [facility] # [id number] 40 Because ethnic data is not always [...] <15 (or dialysis) 41 AA 02/10 42 Low risk: <1.00 Average risk: 1.00-3.00 High risk: >3.00 43 -- REFERENCE VALUE -- <20.0 (Negative) Test Performed by: [place] [address] Bean Snipper: Valdez Cody III, M.D. 44 Test Performed by: [place] [address] Bean Snipper: Valdez Cody III, M.D. 45 left knee synovial fluid 46 Red 47 Slide and differential reviewed. No bacteria, blasts or other malignant cells seen. Blood is present. Reviewed by Nancy Singer MD 48 left knee synovial fluid Synovial (Joint) Fluid 49 Test Performed by: [place] [address] Bean Snipper: Valdez Cody III, M.D. 50 -- REFERENCE VALUE -- <1.0 (Negative) 51 -- REFERENCE VALUE -- <1.0 (Negative) Test Performed by: [facility] [address] [address] Bean Snipper: Valdez Cody III, M.D. 52 Acute inflammation: >10.00 53 Because ethnic data is not always readily [...] 15-29 5 Kidney failure <15 (or dialysis) 54 Reference Range and Interpretation: TnI (ng/mL) Interpretation Less Than 0.03 ng/mL Not supportive of diagnosis of IA 0.03 - 0.50 ng/mL Indeterminate: suggest serial studies if clinically indicated. Greater than 0.5 ng/mL Consistent with diagnosis of IA 55 Because ethnic data is not always [...] 15-29 5 Kidney failure <15 (or dialysis) Procedures Date Code Description Status 04/06/2018 02403 Destruction Of Benign Lesions Any Method 1-14 lesions Completed 03/25/2018 64309 Ercp W/Sphincterotomy/Papillotomy Completed 03/10/2018 36315 Destruction Of Benign Lesions Any Method 1-14 lesions Completed 01/27/2018 30273 Destruction Of Benign Lesions Any Method 1-14 lesions Completed 12/29/2017 85318 Destruction Of Benign Lesions Any Method 1-14 lesions Completed 12/28/2017 45867 Endoscopy Upper GI Biopsy Completed 11/26/2017 [id number] Mammogram Completed 04/07/2017 96099420 Mammogram Completed 11/20/2016 597842494 Bone Mineral Density Test Completed 07/08/2016 00906 Inject/Drain Joint/Bursa Major W/O US Completed 02/11/2016 98629 TKR Total Knee Replacement Completed 02/11/2016 16342 TKR Total Knee Replacement Completed 11/22/201595075 Inject/Drain Joint/Bursa Major W/O US Completed 09/16/201584646 Inject/Drain Joint/Bursa Major W/O US Completed 07/05/201530673 Inject/Drain Joint/Bursa Major W/O US Completed 07/05/2015 74923 Injection Single Tendon Origin/Insertion Completed 02/27/2015 71504 Laparoscopy Cholecystectomy Completed 01/29/2015 14780552 Mammogram Completed 12/04/2014 59313 Needle Electromyography Each Extremity W/Related Completed Paraspinal Areas 12/04/2014 44704 Nerve Conduction 03-04 Studies Completed 10/16/2013 65433 EKG Tracing & Interpretation Completed 10/12/2013 921514799 Bone Mineral Density Test Completed 10/05/2013 83980 Inject/Drain Joint/Bursa Major W/O US Completed 06/23/2013 89513 Stress Test Completed 06/23/2013 37384 Myocardial Perfusion Imaging Tomographic (Spect) Completed Multiple Studies 06/19/2013 03813 ECHO Stress Test Incl Perf Contiuous ekg Monitoring Completed W/Phys Superv 05/31/2013 01182 EKG Tracing & Interpretation Completed 05/19/2013 05452 ECHO Transthorasic Realtime 2D W Doppler & Color Flow Completed Hosp 05/19/2013 80765 EKG, Interpretation Only Completed 03/29/2013 79499135 Colonoscopy Completed 09/09/2010 85685 EKG, Interpretation Only Completed 04/05/2008 42222880 Colonoscopy Completed 10/11/2007 32157 EKG, Interpretation Only Completed 01/20/2007 69395 Stress Test Completed 01/20/2007 55316 Stress Test Completed 01/20/2007 67177 ECHO/Stress Completed 08/29/2006 04746 Echocardiogram Completed 08/29/2006 67070 Echocardiogram Completed 08/29/2006 80672 Pulse Wave/Continuous-Interp.RPT Completed 08/29/2006 53770 Color Flow Doppler/Interp & Reprt Completed 08/29/2006 20078 Color Flow Doppler/Interp & Reprt Completed 03/02/2002 58943612 Colonoscopy Completed 10/18/1992 64786637 Colonoscopy Completed Encounters Type Date Location Provider Dx Diagnosis Office Visit 04/27/2018 [facility] Leela Santamaria MD F33.1 Major depressive 1:40p Medicine - [address] disorder, recurrent, moderate Office Visit 03/26/2018 [facility] I10 Essential (primary) 8:15a Assoc,pc DIANNA Ibrahim hypertension Hospitalists E78.5 Hyperlipidemia, unspecified Office Visit 03/25/2018 8:15a [facility] Samanta Mccormack I10 Essential ( primary) Assoc,pc N.P. hypertension Hospitalists G89.29 Other chronic pain F41.8 Other specified anxiety disorders Office Visit 03/16/2018 [facility] Leela Santamaria F33.0 Major depressive 2:40p - [address] [place]o RENEE disorder, recurrent, mild Office Visit 02/24/2018 [facility] Julio Esparza K25.9 Gastric ulcer, 8:30a MD Siva unsp as acute or chronic, w/o hemor or perf K44.9 Diaphragmatic hernia without obstruction or gangrene K80.80 Other cholelithiasis without obstruction R94.5 Abnormal results of liver function studies Office Visit 02/23/2018 11:00a [facility] Edilberto Flood F33.0 Major depressive Medicine - M.DMarisela disorder, [place] recurrent, mild I10 Essential (primary) hypertension K21.9 Gastro-esophageal reflux disease without esophagitis Office Visit 02/09/2018 8:45a Orthopedic Services Carla Page, M25.561 Pain in right Of C.M.A. M.D. knee R53.1 Weakness Z96.651 Presence of right artificial knee joint Office Visit 12/29/2017 2:30p [facility] Pablo Barajas, L82.1 Other seborrheic MD keratosis R20.2 Paresthesia of skin L29.8 Other pruritus B07.0 Plantar wart L53.8 Other specified erythematous conditions R20.8 Other disturbances of skin sensation Z78.9 Other specified health status Office Visit 12/21/2017 9:00a Orthopedic Jamie M76.62 Achilles Services Of Rian Mauricio tendinitis, left C.M.A. leg M20.22 Hallux rigidus, left foot Office 12/06/2017 [facility] Julio Esparza K21.9 Gastro-esophageal Visit 2:30p MD Siva reflux disease without esophagitis R10.10 Upper abdominal pain, unspecified I48.0 Paroxysmal atrial fibrillation K80.20 Calculus of gallbladder w/o cholecystitis w/o obstruction R63.5 Abnormal weight gain Office Visit 11/17/2017 9:30a Orthopedic Carla Page, S83.411D Sprain of medial Services Of Rian collateral C.M.A. ligament of right knee, subs M25.461 Effusion, right knee Office Visit 10/25/2017 11:15a [facility] Services Carla Page, M25.561 Pain in right Of C.M.A. M.D. knee M25.461 Effusion, right knee Z96.651 Presence of right artificial knee joint S83.411A Sprain of medial collateral ligament of right knee, init Office Visit 2017 Orthopedic Carla M16.11 Unilateral primary 2:00p Services Of Rian Page osteoarthritis, right C.M.A. hip M16.12 Unilateral primary [...] in right knee Office Visit 04/07/2017 2:00p [facility] [place] Aleena, F33.0 Major depressive Medicine - M.D. disorder, [place] recurrent, mild R63.4 Abnormal weight loss G47.00 Insomnia, unspecified Office Visit 02/24/2017 10:00a [facility] [place] Pachikara, F33.0 Major depressive Medicine - M.D. disorder, [place] recurrent, mild I10 Essential (primary) hypertension Z12.39 Encounter for oth screening for malignant neoplasm of breast Office Visit 01/13/2017 11:20a [facility] [place] Pachikara, F33.0 Major depressive Medicine - M.D. disorder, [place] recurrent, mild F41.9 Anxiety disorder, unspecified Office Visit 12/16/2016 3:20p [facility] [place], I10 Essential Medicine - M.D. (primary) [place] hypertension I48.0 Paroxysmal atrial fibrillation F33.0 Major depressive disorder, recurrent, mild F41.9 Anxiety disorder, unspecified M17.0 Bilateral primary osteoarthritis of knee F17.210 Nicotine dependence, cigarettes, uncomplicated Z72.0 Tobacco use Office Visit 11/20/2016 10:00a Rheumatology Pillo Esquivel, M79.7 Fibromyalgia Services Of [facility] Rian M16.11 Unilateral primary osteoarthritis, right hip R94.5 Abnormal results of liver function studies M54.5 Low back pain M54.2 Cervicalgia R20.8 Other disturbances of skin sensation M06.4 Inflammatory polyarthropathy M81.0 Age-related osteoporosis w/o current pathological fracture 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 joint M25.561 Pain in right knee Office Visit 07/08/2016 2:00p Orthopedic Ramiro Garzon Z96.651 Presence of right Services Of M.D. artificial knee C.M.A. joint M17.11 Unilateral primary osteoarthritis, right knee Office Visit 07/03/2016 9:00a Orthopedic Services Carla Page M25.561 Pain in right Of C.M.A. M.D. knee Z96.651 Presence of right artificial knee joint G90.521 Complex regional pain syndrome I of right lower limb Office Visit 06/15/2016 10:15a Orthopedic Services Carla Camilo, M25.561 Pain in right Of C.M.A. M.D. knee Z96.651 Presence of right artificial knee joint G90.521 Complex regional pain syndrome I of right lower limb Office Visit 05/13/2016 10:15a Orthopedic Carla Page, Z47.1 Aftercare Services Jihan Modi following joint C.M.A. replacement surgery Z96.651 Presence of right artificial knee joint M25.561 Pain in right knee G90.521 Complex regional pain syndrome I of right lower limb [facility]2016 [facility] M79.7 Fibromyalgia Assoc,pc Dean, MICROBIOLOGY LAB MANAGER Hospitalists I50.32 Chronic diastolic (congestive) heart failure Z96.651 Presence of right artificial knee joint I10 Essential (primary) hypertension Office Visit 02/13/2016 10:11a [facility] Aspen Hagen M79.7 Fibromyalgia Assoc,pc MICROBIOLOGY LAB MANAGER Hospitalists I50.32 Chronic diastolic (congestive) heart failure Z96.651 Presence of right artificial knee joint I10 Essential (primary) hypertension Office Visit 02/12/2016 10:10a [facility] Aspen Hagen M79.7 Fibromyalgia Assoc,pc MICROBIOLOGY LAB MANAGER Hospitalists I50.32 Chronic diastolic (congestive) heart failure Z96.651 Presence of right artificial knee joint I10 Essential (primary) hypertension [facility]/11[facility]2016 [facility] M79.7 Fibromyalgia Assoc,pc MICROBIOLOGY LAB MANAGER Hospitalists I50.32 Chronic diastolic (congestive) heart failure Z96.651 Presence of right artificial knee joint I10 Essential (primary) hypertension Office Visit 11/22/2015 3:00p Orthopedic Services Carla Page M25.561 Pain in right Of C.M.A. M.D. [...] left knee Office Visit 02/07/2015 3:15p [facility] Madeline Jacobsen R20.2 Paresthesia of Services Of Romaine Frias M.D. skin M25.552 Pain in left hip Office Visit 01/11/2015 9:45a Orthopedic Naomy Rivero.32 Iliotibial band Services Of M.D. syndrome, left C.M.A. leg M70.62 Trochanteric bursitis, left hip Office Visit 12/19/2014 2:30p Orthopedic Naomy Rivero.32 Iliotibial band Services Of [...] Phosphate Crystal Lower Leg Office Visit 10/16/2013 [facility] Joshua Bryant 427.31 Atrial Fibrillation 9:00a Of Romaine Zavala M.D., [facility], [facility] Office Visit 10/09/2013 Rheumatology Irving Alexander, 715.96 Osteoarthrosis 10:40a Services Of Romaine Modi Unspec Genlzd Or Localized Lower Leg 727.51 Cyst Synovial Popliteal Space Office Visit 10/05/2013 8:00a Rheumatology Irving Alexander, 729.1 Myalgia & Services Of Romaine Modi Myositis Unspec 727.00 Synovitis & Tenosynovitis Unspec Office Visit 09/29/2013 11:26a [facility] Quincy Ingram 427.31 Atrial Assoc,valentin Ibrahim Fibrillation Hospitalists MAmber 401.9 Hypertension Unspec 276.8 Hypopotassemia 275.2 Metabolic Disorder Magnesium Office Visit 09/28/2013 11:25a [facility] Quincy Ingram 427.31 Atrial Assoc,valentin Ibrahim Fibrillation Hospitalists M.Dalton 401.9 Hypertension Unspec 276.8 Hypopotassemia 275.2 Metabolic Disorder Magnesium Office Visit 09/27/2013 11:25a [facility] Quincy Ingram 427.31 Atrial Assoc,valentin Ibrahim Fibrillation Hospitalists MAmber 401.9 Hypertension Unspec 276.8 Hypopotassemia 275.2 Metabolic Disorder Magnesium Office Visit 09/08/2013 Rheumatology Irving Alexander, 729.1 Myalgia & Myositis 8:00a Services Of Romaine Modi Unspec Office Visit 08/25/2013 [facility] Joshua Bryant 427.31 Atrial 11:30a Rian Zavala, Fibrillation FACC, [facility] Office Visit 05/31/2013 [facility] Joshualandon Bryant 427.31 Atrial 10:15a Rian Zavala, Fibrillation FACC, FASNC Office Visit 05/19/2013 [facility] aCsey Barillas, 427.31 Atrial 1:19p Assocvalentin M.D. Fibrillation Hospitalists 401.9 Hypertension Unspec 276.8 Hypopotassemia Office Visit 05/18/2013 [facility] Annia Myers 427.31 Atrial 1:18p Assoc,pc Jay, N.PMarisela Fibrillation Hospitalists 401.9 Hypertension Unspec 276.8 Hypopotassemia Plan of Treatment Future Appointment(s):06/08/2018 2:20 pm - Leela Santamaria MD at [facility] Medicine - [address]
[2018-06-05 15:06] VITALS: BP 144/70
--- NOTE | 2018-06-05 15:30 | UC ---
Respiratory Complaint HPI - HPI Summary HPI Summary: 72 y/o female presents to the urgent care c/o Cold and cough for a month. consistent headache. Fatigued. back and chest hurts when taking deep breath and laying down. - History of Current Complaint Chief Complaint: UCRespiratory Stated Complaint: CONGESTED Time Seen by Provider: 06/05/18 15:26 Hx Obtained From: Patient ?: No - menopausal Onset/Duration: Gradual Onset, Lasting Weeks - 4 weeks, Worse Since - 1 week w/ yellowish phleg and unable to sleep at night due to cough josseline her chest hurts Timing: Intermittent Episodes Severity Initially: Mild Severity Currently: Moderate Pain Intensity: 4 Pain Scale Used: 0-10 Numeric Character: Cough: Productive, Sputum Description: - yellowish Aggravating Factors: Recumbent Position Alleviating Factors: Nothing Associated Signs And Symptoms: Positive: Chills, Wheezing - mild, URI, Nasal Congestion, Sinus Discomfort. Negative: Fever, Dizziness - Risk Factors Pulmonary Embolism Risk Factors: Negative Cardiac Risk Factors: Negative Pseudomonas Risk Factors: Negative Tuberculosis Risk Factors: Negative - Allergies/Home Medications Allergies/Adverse Reactions: Allergies Allergy/AdvReac Type Severity Reaction Status Date / Time atorvastatin AdvReac Severe Muscle Ache Verified 06/05/18 15:06 duloxetine AdvReac Severe Blisters Verified 06/05/18 15:06 morphine AdvReac Severe Nausea And Verified 06/05/18 15:06 Vomiting statins AdvReac Severe Muscle Ache Uncoded 03/25/18 11:22 PMH/Surg Hx/FS Hx/Imm Hx Previously Healthy: Yes Endocrine History: Dyslipidemia Cardiovascular History: Hypertension Psychological History: Anxiety, Depression - Surgical History Surgical History: Yes Surgery Procedure, Year, and Place: PARATHYROIDECTOMY; HYSTERECTOMY; LEFT ROTOR CUFF REPAIR; LOOP RECORDER PLACED,. GALL BLADDER REMOVED,RT TOTAL KNEE REPLACEMENT - Family History Known Family History: Positive: Cardiac Disease, Hypertension Family History: No reported cardiovascular issues in family lineage - Social History Occupation: Retired Lives: With Family Alcohol Use: None Alcohol Amount: 2-3 per month Substance Use Type: None Smoking Status (MU): Former Smoker Type: Cigarettes Amount Used/How Often: 2-3 cigarettes/week Length of Time of Smoking/Using Tobacco: 25 YRS Have You Smoked in the Last Year: No When Did the Patient Quit Smoking/Using Tobacco: 2009 Household Exposure Type: Cigarettes - Immunization History Most Recent Influenza Vaccination: 2011 Most Recent Tetanus Shot: UP TO DATE Most Recent Pneumonia Vaccination: 2009 Review of Systems All Other Systems Reviewed And Are Negative: Yes Constitutional: Positive: Chills, Fatigue Skin: Positive: Negative Eyes: Positive: Negative ENT: Positive: Nasal Discharge - yellowish discharge, Sinus Congestion, Sinus Pain/Tenderness Respiratory: Positive: Cough - productive w/ yellowish phlegm Physical Exam - Summary Physical Exam Summary: Vital Signs Reviewed: Yes General: well developed, well nourished female sitting in the examining table w/ o any apparent distress Eyes: Positive: Conjunctiva Clear - PERRLA, EOMI, fundi grossly normal ENT: Positive: Normal ENT inspection, Hearing grossly normal, Pharynx normal, Nasal congestion - edematous and erythematous nasal mucosa, Nasal drainage - yellowish drainage, TMs normal. Negative: Tonsillar swelling, Tonsillar exudate Neck: Positive: Supple, Nontender, No Lymphadenopathy Respiratory: no orthopnea or dyspnea. Able to speak in full sentences, no retractions or accessory muscle use, no tripod position, stridor, or head bobbing. Positive breath sounds bilaterally. Posterior upper lungs w/ mild scattered wheezing and rhonchi. no crackles or rales. Cardiovascular: Positive: RRR, No Murmur, Pulses Normal, Brisk Capillary Refill Abdomen Description: Positive: Nontender, No Organomegaly, Soft. Negative: CVA Tenderness (R), CVA Tenderness (L) Bowel Sounds: Positive: Present Musculoskeletal Exam: Normal Musculoskeletal: Positive: Strength Intact, ROM Intact, No Edema Neurological Exam: Normal Psychological Exam: Normal Skin Exam: Normal Triage Information Reviewed: Yes Vital Signs: Initial Vital Signs Temp 98.2 F 06/05/18 15:00 Pulse 64 06/05/18 15:00 Resp 16 06/05/18 15:00 BP 144/70 06/05/18 15:00 Pulse Ox 95 06/05/18 15:00 Respiratory Course/Dx - Course Course Of Treatment: Chest X-ray Ordered to r/o pneumonia. Impression: Stigmata of obstructive lung disease. No acute pulmonary or cardiac process evident. - Differential Dx/Diagnosis Differential Diagnosis/HQI/PQRI: Asthma, Bronchitis, Influenza, Lower Resp Infection, Sinusitis, Other - pneumonia Provider Diagnosis: Acute bronchitis, Wheezing Discharge - Sign-Out/Discharge Documenting (check all that apply): Patient Departure - D/C home All imaging exams completed and their final reports reviewed: Yes - Discharge Plan Condition: Stable Disposition: HOME Prescriptions: Albuterol HFA INHALER* [Ventolin HFA Inhaler*] 1 - 2 puff INH Q6H PRN #1 mdi PRN Reason: Wheezing Benzonatate CAP* [Tessalon 100 MG CAP*] 100 mg PO TID PRN #21 cap PRN Reason: Cough DOXYcycline CAP(*) [DOXYcycline 100MG CAP(*)] 100 mg PO BID #20 cap Patient Education Materials: Acute Bronchitis (ED), Wheezing (ED) Referrals: Edilberto Flood MD [Primary Care Provider] - 3 Days Additional Instructions: 1-Please take full course of antibiotic to avoid resistance. 2-Take Tessalon PO tabs as directed and use the albuterol inhalerw/ the Aerochamber to alleviate cough. Increase fluid intake, rest and eat well. 3- If symptoms do not improve or worsen or your develop SOB with fever and severe wheezing please go immediately to the ER further evaluation and treatment. 4- F/u with your appt w/ DR Reinoso on 06/09/2018 for your pulmonary function test and further management on your symptoms. 5-Your BP is elevated today. please decrease salt in your diet, monitor BP and if it continues to be elevated please f/u with your PCP for further management. - Billing Disposition and Condition Condition: STABLE Disposition: Home
[2018-06-05] MEDS ORDERED: Albuterol 2.5 MG/3 ML NEB.SOL* (0.083%) INH ONE (15:46)
[2018-06-05 16:08] LABS: Influenza A Molecular NEGATIVE (Negative); Influenza B Molecular NEGATIVE (Negative)
== END 2018-06-05 16:40 | disposition home or self-care (01) ==
LOC: UCEAST 14:29
DX: J20.9 Acute bronchitis, unspecified (principal); I10 Essential (primary) hypertension; F41.9 Anxiety disorder, unspecified; F32.9 Major depressive disorder, single episode, unspecified; Z96.651 Presence of right artificial knee joint; Z88.5 Allergy status to narcotic agent; Z88.8 Allergy status to other drugs, medicaments and biological substances; Z87.891 Personal history of nicotine dependence
CPT/HCPCS: 71046; 99212; G0463

== ENCOUNTER 2018-08-30 11:55 | Day surgery (SDC) | payer MEDICARE, BC ==
[~2018-08-30 11:55] MED LIST changes: +Acetaminophen TAB* 325 MG PO PRN; -Buffered Lidocaine 0.9% SYRIN* 5 ML/SYR SYRINGE INTRADERM ONE; +Buffered Lidocaine 1% SYRIN* 1 ML/SYRINGE INTRADERM ONE; +Cyclopentolate 1% OPTH.SOL* 2 ML BTL ONE; +Ketorolac 0.5% OPHTH (NF) 0.5 % 5 ML BTL ONE; -Lactated Ringers 1000 ML Bag* 1,000 ML IV SCH; +Lidocaine 1%* 5 ML VIAL ONE; +Neomycin/Polymy/Dex OPHTH.OIN* 3.5 GM ONE; +Phenylephrine OPHTH SOL 2.5%* 2 ML ONE; +Tetracaine 0.5% OPTH.SOL 4 ML* 1 DROP BTL ONE; +Tropicamide 1% OPTH.SOL* BTL ONE
[2018-08-30] MEDS ORDERED: fentaNYL* 50 MCG/ML 2 ML VIAL (100 MCG VIAL) ONE (13:36)
[2018-08-30] MEDS ORDERED: Midazolam* 1 MG/ML 5 ML VIAL (5 MG) ONE (13:36)
[2018-08-30 14:34] VITALS: BP 131/58
[2018-08-30] MEDS ORDERED: Phenylephr/Ketorolac 1%/0.3% OPH DROP BTL ONE (16:05)
--- NOTE | 2018-08-30 22:34 | OP ---
DATE OF OPERATION: 08/30/18 - [facility] DATE OF : 47 SURGEON: Julio Liang MD CREWMAN MAIN BATTLE TANK: None. ANESTHESIA: Topical with intravenous sedation. PRE-OP DIAGNOSIS: Cataract and glaucoma, right eye. POST-OP DIAGNOSIS: Cataract and glaucoma, right eye. OPERATIVE PROCEDURE: Phacoemulsification and cataract extraction with posterior chamber intraocular lens implant and iStent implant. COMPLICATIONS: None. BLOOD LOSS: None. DESCRIPTION OF PROCEDURE: The patient was brought to the operating room and given intravenous sedation. She was prepped and draped in the usual sterile fashion for ophthalmic surgery. Attention was directed to the right eye where a speculum was placed. It was noted that the pupil was only dilated to approximately 4 mm. Omidria was added to the irrigating solution. A paracentesis was created at the 11 o'clock position and 0.1 cc of 1% preservative-free Lidocaine was injected into the anterior chamber followed by DisCoVisc. The eye was digitally stabilized while a 2.75 mm keratome was used to create a triplanar clear corneal incision at the 9 o'clock position. A continuous curvilinear capsulorrhexis was created using a cystotome and Utrata forceps. BSS on a cannula was used to hydrodissect the lens from the capsule. Phacoemulsification was performed in a [id number] technique to create four fragments which were removed. Residual cortical material was removed with irrigation and aspiration. The capsular bag was polished. DisCoVisc was used to inflate the capsular bag. An [id number] 19.5 diopter lens was inserted into the capsular bag. Supplemental DisCoVisc was used to deepen the anterior chamber and coat the surface of the cornea. The patient's head was rotated away from the surgeon and the microscope was rotated towards the surgeon. A corneal prism was placed in the surface of the eye. An iStent on its examination proctor was introduced into the anterior chamber. Under direct visualization, the iStent was placed into the nasal trabecular meshwork. The iStent examination proctor and the corneal prism were removed. The patient's head and microscope were returned to an upright position. Irrigation and aspiration were performed to remove viscoelastic from the eye. BSS on a cannula was used to hydrate the corneal stroma and seal the wound. At the end of the case, the pupil was round and the lens was centered. The iStent was in good position. The eye pressure appeared normal and the wound was water tight. The speculum was removed and topical Maxitrol ointment was placed on the surface of the eye. Eye was closed, patched and shielded and the patient was sent to recovery room in stable condition with postoperative instructions and a followup appointment given. [id number]/CPS #: [id number] GERALDO
== END 2018-08-30 14:48 | disposition home or self-care (01) ==
LOC: OREAST 11:55
PROVIDERS: ATTEND Ophthalmology
DX: H25.11 Age-related nuclear cataract, right eye (principal); H40.10X0 Unspecified open-angle glaucoma, stage unspecified; Z87.891 Personal history of nicotine dependence; I10 Essential (primary) hypertension; I48.91 Unspecified atrial fibrillation; E21.3 Hyperparathyroidism, unspecified; F41.8 Other specified anxiety disorders
CPT/HCPCS: A9270-GY; C1783; C9447; J2250; J3010; V2632

== ENCOUNTER 2018-09-06 10:55 | Day surgery (SDC) | payer MEDICARE, BC ==
[~2018-09-06 10:55] MED LIST changes: -Cyclopentolate 1% OPTH.SOL* 2 ML BTL ONE; -Ketorolac 0.5% OPHTH (NF) 0.5 % 5 ML BTL ONE; -Lidocaine 1%* 5 ML VIAL ONE; -Neomycin/Polymy/Dex OPHTH.OIN* 3.5 GM ONE; -Phenylephrine OPHTH SOL 2.5%* 2 ML ONE; -Tetracaine 0.5% OPTH.SOL 4 ML* 1 DROP BTL ONE; -Tropicamide 1% OPTH.SOL* BTL ONE
[2018-09-06] MEDS ORDERED: Ketorolac 0.5% OPHTH (NF) 0.5 % 5 ML BTL ONE (11:43)
[2018-09-06] MEDS ORDERED: Cyclopentolate 1% OPTH.SOL* 2 ML BTL ONE (11:43)
[2018-09-06] MEDS ORDERED: Lidocaine 1%* 5 ML VIAL ONE (11:43)
[2018-09-06] MEDS ORDERED: Neomycin/Polymy/Dex OPHTH.OIN* 3.5 GM ONE (11:43)
[2018-09-06] MEDS ORDERED: Tetracaine 0.5% OPTH.SOL 4 ML* 1 DROP BTL ONE (11:43)
[2018-09-06] MEDS ORDERED: Phenylephrine OPHTH SOL 2.5%* 2 ML ONE (11:43)
[2018-09-06] MEDS ORDERED: Tropicamide 1% OPTH.SOL* BTL ONE (11:43)
[2018-09-06] MEDS ORDERED: Midazolam* 1 MG/ML 2 ML VIAL (2 MG) ONE ×2 (12:47→13:11)
[2018-09-06] MEDS ORDERED: fentaNYL* 50 MCG/ML 2 ML VIAL (100 MCG VIAL) ONE (13:06)
[2018-09-06] MEDS ORDERED: Phenylephr/Ketorolac 1%/0.3% OPH DROP BTL ONE (13:35)
[2018-09-06 13:57] VITALS: BP 110/81
--- NOTE | 2018-09-06 14:08 | OP ---
DATE OF OPERATION: 09/06/18 - [facility] DATE OF : 47 SURGEON: Julio Liang MD. GUITAR REPAIRER: None. ANESTHESIA: Topical with intravenous sedation. PRE-OP DIAGNOSES: Cataract and glaucoma, left eye. POST-OP DIAGNOSES: Cataract and glaucoma, left eye. OPERATIVE PROCEDURES: Phacoemulsification and cataract extraction with posterior chamber intraocular lens implant to left eye and iStent implant to left eye. COMPLICATIONS: None. BLOOD LOSS: None. DESCRIPTION OF PROCEDURE: The patient was brought to the operating room and received a small amount of intravenous sedation. The patient was given a drop of tetracaine to the left eye. She was prepped and draped in the usual sterile fashion for ophthalmic surgery and attention was directed to the left eye where a speculum was placed. A paracentesis was created at the 5 o'clock position and 0.1 cc of 1% preservative-free lidocaine was injected into the anterior chamber followed by DisCoVisc. The eye was digitally stabilized while a 2.75 mm keratome was used to create a triplanar clear corneal incision at the 3 o' clock position. A continuous curvilinear capsulorrhexis was created with cystotome and Utrata forceps. BSS on a cannula was used to hydrodissect the lens from the capsule. Phacoemulsification was performed in a divide-and- conquer technique to create 4 fragments, which were removed. Residual cortical material was removed with irrigation and aspiration. The capsular bag was polished. DisCoVisc was used to inflate the capsular bag. An AU00T0 19.5 diopter lens was inserted into the capsular bag. Supplemental DisCoVisc was used to deepen the anterior chamber and coat the surface of the cornea. The patient's head was rotated away from the surgeon and the microscope was rotated towards the surgeon. A corneal prism was placed in the surface of the eye. An iStent on its curer acid drum was introduced into the anterior chamber. Under direct visualization, the iStent was placed into the nasal trabecular meshwork. The iStent curer acid drum and corneal prism were removed from the field. The patient's head and microscope were returned to a neutral position. Irrigation and aspiration were performed to remove viscoelastic from the eye. BSS on a cannula was used to hydrate the corneal stroma and seal the wound. At the end of the case, the pupil was round and the lens was centered. The eye pressure appeared normal. The iStent was in good position. The speculum was removed and topical Maxitrol ointment was placed on the surface of the eye. Eye was closed, patched and shielded, and the patient was sent to recovery room in stable condition with postoperative instructions and a followup appointment given. [id number] #: [id number] MTDD
== END 2018-09-06 13:50 | disposition home or self-care (01) ==
LOC: OREAST 10:55
PROVIDERS: ATTEND Ophthalmology
DX: H25.12 Age-related nuclear cataract, left eye (principal); H40.10X0 Unspecified open-angle glaucoma, stage unspecified; I10 Essential (primary) hypertension; Z87.891 Personal history of nicotine dependence; J44.9 Chronic obstructive pulmonary disease, unspecified; E21.3 Hyperparathyroidism, unspecified; M81.0 Age-related osteoporosis without current pathological fracture
CPT/HCPCS: A9270-GY; C1783; C9447; J2250; J3010; V2632

== ENCOUNTER 2022-08-14 20:42 | Inpatient (IN) ==
[2022-08-14 21:36] LABS: ABS Basophils 0.1 10^3/uL (0.0-0.1); ABS Monocytes 1.4 10^3/uL (0.0-0.9); ABS Neutrophils 9.8 10^3/uL (1.5-7.6); ABS Nucleated RBC 0.02 10^3/ul; Eosinophil % 0.1 %; Hematocrit 35.5 % (35-45); Lymphocyte % 20.8 %; Mean Corpuscular Hemoglobin 32.8 pg (27-33); Mean Corpuscular Hgb Conc 33.7 g/dL (31-36); Mean Corpuscular Volume 97.4 fL (80-97); Mean Platelet Volume 8.8 fL (7.5-11.2); Nucleated Red Blood Cells % 0.2 /100 WBC (0.0-0.4); Platelet Count 214 10^3/uL (150-450); Red Blood Count 3.65 10^6/uL (3.63-4.92); Red Cell Distribution Width 13.2 % (12-17); White Blood Count 14.2 10^3/uL (3.8-11.8)
[2022-08-14 22:27] LABS: Albumin 3.9 g/dL (3.2-5.2); Albumin/Globulin Ratio 1.8 (1-3); C Reactive Protein 40.15 mg/L (<8.01); Calcium 9.3 mg/dL (8.6-10.3); Creatinine, Serum 0.76 mg/dL (0.51-0.95); Globulin 2.2 g/dL (2-4); Total Bilirubin 0.4 mg/dL (0.2-1.0); Total Protein 6.1 g/dL (6.4-8.9); eGFR CKD-EPI 81.2 (>60)
[2022-08-14 22:59] LABS: High Sensitivity Troponin 1 Hr 7 pg/mL (<15)
[2022-08-14] MEDS ORDERED: Remdesivir 100 mg Vial 200 MG in NS 0.9% 250 ml 210 ML IV ONE (23:32)
[2022-08-14] MEDS ORDERED: Ipratropium HFA INHALER(NF) (ALTERNATIVE = NEBS) INH PRN (23:36)
[2022-08-14] MEDS ORDERED: Polyethylene Glycol 3350 17 GM PACKET PO PRN (23:44)
[2022-08-14] MEDS ORDERED: Levalbuterol HFA INHALER MDI INH PRN (23:44)
[2022-08-15] MEDS: CMCS: Ipratropium HFA INHALER(NF) INH SCH ×4 (00:10→18:09)
[2022-08-15 00:51] LABS: INR 1.15 (0.88-1.18)
[2022-08-15] MEDS: Enoxaparin 40 MG/0.4 ML SYR SUBCUT SCH ×2 (00:58→20:27)
[2022-08-15 01:14] LABS: Urine Appearance Clear; Urine Bilirubin Negative (Negative); Urine Blood Negative (Negative); Urine Color Yellow; Urine Glucose Negative (Negative); Urine Ketones Negative (Negative); Urine Nitrite Negative (Negative); Urine Protein Negative (Negative); Urine Specific Gravity 1.015 (1.002-1.030); Urine Urobilinogen Negative (Negative)
[2022-08-15 05:34] LABS: ABS Lymphocytes 1.4 10^3/uL (1.0-4.8); ABS Monocytes 0.3 10^3/uL (0.0-0.9); ABS Nucleated RBC 0.01 10^3/ul; Hematocrit 31.8 % (35-45); Hemoglobin 10.8 g/dL (11.5-14.3); Lymphocyte % 9.5 %; Mean Corpuscular Hemoglobin 33.4 pg (27-33); Mean Corpuscular Hgb Conc 33.8 g/dL (31-36); Mean Corpuscular Volume 98.8 fL (80-97); Mean Platelet Volume 8.8 fL (7.5-11.2); Nucleated Red Blood Cells % 0.1 /100 WBC (0.0-0.4); Platelet Count 188 10^3/uL (150-450); Red Blood Count 3.22 10^6/uL (3.63-4.92); Red Cell Distribution Width 13.4 % (12-17); White Blood Count 14.7 10^3/uL (3.8-11.8)
[2022-08-15 05:38] LABS: INR 1.14 (0.88-1.18)
[2022-08-15 06:30] LABS: Albumin 3.7 g/dL (3.2-5.2); Albumin/Globulin Ratio 1.7 (1-3); Calcium 9.1 mg/dL (8.6-10.3); Creatinine, Serum 0.85 mg/dL (0.51-0.95); Globulin 2.2 g/dL (2-4); Potassium 4.5 mmol/L (3.5-5.0); Total Bilirubin 0.2 mg/dL (0.2-1.0); Total Protein 5.9 g/dL (6.4-8.9)
[2022-08-15] MEDS ORDERED: Mometasone/Formoter 100/5 MDI INH SCH (07:00)
[2022-08-15] MEDS ORDERED: Remdesivir 100 mg Vial 100 MG in NS 0.9% 250 ml 230 ML IV SCH (21:00)
[2022-08-16] MEDS: CMCS: Ipratropium HFA INHALER(NF) INH SCH ×4 (00:36→19:29)
[2022-08-16 05:43] LABS: ABS Lymphocytes 1.9 10^3/uL (1.0-4.8); ABS Monocytes 0.8 10^3/uL (0.0-0.9); ABS Neutrophils 16.3 10^3/uL (1.5-7.6); ABS Nucleated RBC 0.03 10^3/ul; Hemoglobin 11.6 g/dL (11.5-14.3); Lymphocyte % 9.9 %; Mean Corpuscular Hemoglobin 32.8 pg (27-33); Mean Corpuscular Volume 96.3 fL (80-97); Nucleated Red Blood Cells % 0.2 /100 WBC (0.0-0.4); Platelet Count 215 10^3/uL (150-450); Red Blood Count 3.53 10^6/uL (3.63-4.92); Red Cell Distribution Width 13.1 % (12-17)
[2022-08-16 05:48] LABS: INR 1.15 (0.88-1.18)
[2022-08-16 06:24] LABS: Albumin 3.5 g/dL (3.2-5.2); Albumin/Globulin Ratio 1.7 (1-3); Calcium 9.2 mg/dL (8.6-10.3); Creatinine, Serum 0.62 mg/dL (0.51-0.95); Globulin 2.1 g/dL (2-4); Potassium 4.4 mmol/L (3.5-5.0); Total Bilirubin 0.2 mg/dL (0.2-1.0); Total Protein 5.6 g/dL (6.4-8.9); eGFR CKD-EPI 92.2 (>60)
[2022-08-16] MEDS ORDERED: Lactated Ringers 1000 ml BAG 1,000 ML IV SCH (08:00)
[2022-08-16] MEDS: Enoxaparin 40 MG/0.4 ML SYR SUBCUT SCH (20:41)
[2022-08-16] MEDS ORDERED: Remdesivir 100 mg Vial 100 MG in NS 0.9% 250 ml 230 ML IV SCH (21:00)
[2022-08-17] MEDS: CMCS: Ipratropium HFA INHALER(NF) INH SCH ×3 (01:11→13:30)
[2022-08-17 06:52] LABS: INR 1.16 (0.88-1.18)
[2022-08-17 07:12] LABS: Albumin 3.5 g/dL (3.2-5.2); Albumin/Globulin Ratio 1.7 (1-3); Calcium 9.3 mg/dL (8.6-10.3); Creatinine, Serum 0.66 mg/dL (0.51-0.95); Globulin 2.1 g/dL (2-4); Potassium 4.2 mmol/L (3.5-5.0); Total Bilirubin 0.3 mg/dL (0.2-1.0); Total Protein 5.6 g/dL (6.4-8.9); eGFR CKD-EPI 90.9 (>60)
[2022-08-17 10:44] VITALS: BP 128/72
== END 2022-08-17 13:50 | disposition home or self-care (01) | DRG 177 ==
LOC: EDHOLD 20:42 → ED 20:42 → SUATTDRO 22:01 → MED 08-16 12:19
PROVIDERS: ADMIT Hospitalist; ATTEND Internal Medicine